=== PATIENT | male | born 1940 | race Caucasian/White ===

== ENCOUNTER 2017-08-20 21:10 | Emergency (ER) | payer MEDICARE, BC ==
--- OUTSIDE RECORDS SUMMARY | 2017-08-20 21:13 | XMS | Clinical Summary ---
:1940 Author Organization [facility] Address [address] [place] [address] Phone Care Team Providers Name Role Phone , Primary Care Provider Unavailable Allergies Not on File Current Medications Not on file Active Problems Not on file Social History Tobacco Use Types Packs/Day Years Used Date Never Assessed Sex Assigned at Date Recorded Not on file Last Filed Vital Signs Not on file Plan of Treatment Not on file Results Not on filefrom Last 3 Months
== END 2017-08-20 22:48 | disposition home or self-care (01) ==
LOC: ERS 21:10
DX: I10 Essential (primary) hypertension (principal); E11.9 Type 2 diabetes mellitus without complications; Z79.82 Long term (current) use of aspirin; Z79.4 Long term (current) use of insulin; Z79.899 Other long term (current) drug therapy
CPT/HCPCS: 93005

== ENCOUNTER 2017-09-20 07:08 | Outpatient (CLI) | payer MEDICARE, BC ==
--- NOTE | 2017-09-20 10:21 | ULT ---
BILATERAL RENAL ULTRASOUND WITH DOPPLER: (HERNÁNDEZ SCALE, COLOR FLOW, AND SPECTRAL DOPPLER) Date: 09/20/17 HISTORY: Chronic renal disease, Diabetes mellitus, hypertension FINDINGS: The right kidney measures 12.7 cm in length and the left kidney measures 12.0 cm in length. No focal mass or hydronephrosis is seen on either side. The urinary bladder is unremarkable. The peak systolic velocity in the right renal artery measures 233 cm/second. The peak systolic veloc ity in the left renal artery measures 128 cm/second. Renal artery:aortic ratio is 3.0 on the right a nd 1.7 on the left. The resistive indices measure 0.79 on the right and 0.78 on the left. IMPRESSION: 1. Findings are suspicious for hemodynamically significant right renal stenosis. 2. No evidence of high grade obstruction. POS: ZAY
--- OUTSIDE RECORDS SUMMARY | 2017-09-20 10:56 | XMS | Clinical Summary ---
:1940 Author Organization [facility] Address [address] [place] [address] Phone Care Team Providers Name Role Phone [...]
== END 2017-09-20 07:09 | disposition home or self-care (01) ==
LOC: ULT 07:08
PROVIDERS: ATTEND Internal Medicine Nephrology
DX: N18.4 Chronic kidney disease, stage 4 (severe) (principal)
CPT/HCPCS: 76700; 76770

== ENCOUNTER 2020-04-08 10:00 | Outpatient (CLI) | payer MEDICARE, BC ==
--- NOTE | 2020-04-08 14:58 | CT ---
CTA OF THE NECK UTILIZING IV CONTRAST: 04/08/20 INDICATION: History of left carotid stenosis. COMPARISON: Prior CTA of the neck with and without contrast from [facility] dated 10/22/15. Com parisons are also made with the carotid duplex ultrasound from [facility] dated 12/16/17. FINDINGS: When compared to the most recent CTA comparison examination there has been an interval endarterectomy of the right carotid bulb. No hemodynamically significant stenosis is seen involving the right commo n carotid artery or right internal carotid artery. Since the comparison examination, there is worsening calcified atherosclerotic plaque involving the d istal common carotid artery with 70% luminal caliber narrowing of the distal left common carotid kenney ry just proximal to the carotid bulb. There is some mild narrowing involving the origin of both the l eft ECA and proximal left ICA but less than 50%. There is at least moderate to severe narrowing involving the origin of the right vertebral artery due to atherosclerotic plaque. There is at least severe luminal caliber narrowing involving the intracra nial course of the right vertebral artery. Left vertebral artery demonstrates mild narrowing at its origin but is otherwise patent. The subclavian arteries appear patent throughout their course. Left common carotid artery origin and brachiocephalic artery origins are patent. There has been interval enlargement of an irregular hypode nse nodule involving the inferior pole of the left thyroid gland now measuring 2.3 x 2.2 cm. There is a subpleural pulmonary nodule measuring 3 mm in superior segment of the right lower lobe on image 13 9 of series 6. There is a subpleural 5 mm nodule in the right upper lobe on image 124 of series 6. Th ere is a small left pleural effusion. There is a calcified lymph node within the right hilar region. There is a mildly enlarged precarinal lymph node measuring 1.1 cm. There is postsurgical change of pr ior CABG. There is scattered degenerative and osteoarthritic change of the visualized cervical spine. No defini te acute osseous abnormality is evident. The visualized aerodigestive tract appears within normal winters its. The parotid and submandibular glands are normal appearing. There is mucous retention cysts seen within the sphenoid sinus. Small mucous retention cysts are seen within the inferior left maxillary sinus. IMPRESSION: 1. 70% luminal canal narrowing involving the distal left common carotid artery with mild narrowi ng involving the origins of both the left external and left internal carotid arteries. 2. Interval carotid endarterectomy involving the right carotid bulb. 3. Moderate to severe narrowing involving the origin of the right vertebral artery with severe n arrowing involving the intracranial course of the right vertebral artery. 4. Mild narrowing involving the origin of the left vertebral artery. 5. Enlarging inferior pole left thyroid nodule. Dedicated thyroid ultrasound is recommended. 6. Right upper and right lower lobe pulmonary nodules. A follow-up CT of the thorax is recommend ed for further characterization. 7. Small left pleural effusion. Code T POS: BH
== END 2020-04-08 10:01 | disposition home or self-care (01) ==
LOC: SCSCT 10:00
PROVIDERS: ATTEND Internal Medicine Cardiovascular Disease
DX: I65.22 Occlusion and stenosis of left carotid artery (principal); I65.03 Occlusion and stenosis of bilateral vertebral arteries; E04.2 Nontoxic multinodular goiter; J90 Pleural effusion, not elsewhere classified; R91.8 Other nonspecific abnormal finding of lung field
CPT/HCPCS: 70498

== ENCOUNTER 2020-05-16 07:30 | Outpatient (CLI) | payer MEDICARE, BC, OTHER ==
[2020-05-16 18:00] LABS: Hemoglobin 9.6 g/dL (14.0-18.0); Mean Corpuscular HGB CONC 33.9 g/dL (32.0-36.0); Mean Corpuscular Hemoglobin 32.4 pg (27.0-31.0); Mean Corpuscular Volume 95.5 fL (78.0-98.0); Mean Platelet Volume 8.8 fL (7.4-10.4); Platelet Count 173 thou/uL (130-400); RBC Distribution Width 12.6 % (11.5-14.5); Red Blood Cell (RBC) Count 2.96 mill/uL (4.70-6.10); White Blood Cell (WBC) Count 8.1 thou/uL (4.8-10.8)
[2020-05-16 18:19] LABS: Anion Gap 13 mmol/L (10-20); BUN (Urea Nitrogen) 32 mg/dL (8.4-25.7); Calc. Creatinine Clearance 0 mL/min (70-130); Calcium 9.2 mg/dL (7.8-10.44); Carbon Dioxide 18 mmol/L (23-31); Chloride 116 mmol/L (98-107); Estimated GFR-MDRD 34; Glucose 76 mg/dL (83-110); Potassium 4.3 mmol/L (3.5-5.1); Sodium 143 mmol/L (136-145)
[2020-05-17 13:48] LABS: SARS-CoV-2 MS2 Positive; SARS-CoV-2 N Gene Negative; SARS-CoV-2 S Gene Negative; SARS-CoV-2 orf1ab Negative
== END 2020-05-16 07:31 | disposition home or self-care (01) ==
LOC: LABBT 07:30
PROVIDERS: ATTEND Thoracic Surgery (Cardiothoracic Vascular Surgery)
DX: Z01.818 Encounter for other preprocedural examination (principal); Z11.59 Encounter for screening for other viral diseases
CPT/HCPCS: 80048; 85027; U0003; 87635

== ENCOUNTER 2020-05-16 15:15 | Inpatient (IN) | payer MEDICARE, BC, OTHER ==
[2020-05-19] MEDS ORDERED: EPINEPHrine 1 MG/ML AMP ONE (06:28)
[2020-05-19] MEDS ORDERED: Bupivacaine PF 0.5% 30 ML VIAL ONE (06:28)
[2020-05-19] MEDS ORDERED: Heparin 5,000 UNITS/ML VIAL ONE (06:28)
[2020-05-19] MEDS ORDERED: Protamine Sulfate 50 MG/5 ML VIAL ONE (06:28)
[2020-05-19] MEDS ORDERED: Fentanyl 100 MCG/2 ML VIAL ONE (06:32)
[2020-05-19] MEDS ORDERED: Midazolam HCl 2 mg/2 ml Vial ONE (06:32)
[2020-05-19] MEDS ORDERED: Phenylephrine 10 MG/ML VIAL ONE (08:00)
[2020-05-19] MEDS ORDERED: AFRIN NASAL MIST 15 ML BOT ONE (08:00)
[2020-05-19] MEDS ORDERED: Atropine Sulfate 1 mg/10 ml Syringe ONE (08:18)
[2020-05-19] MEDS ORDERED: SUGAMMADEX SODIUM 500 MG/5 ML VIAL ONE (08:32)
--- NOTE | 2020-05-19 10:12 | OP ---
DATE OF PROCEDURE: 05/19/2020 PREOPERATIVE DIAGNOSIS: Asymptomatic left carotid stenosis. POSTOPERATIVE DIAGNOSIS: Asymptomatic left carotid stenosis. PROCEDURE PERFORMED: Transcarotid artery revascularization stenting of the left carotid system. SPEECH AND LANGUAGE SPECIALIST: Nba Wu MD ANESTHESIA: General endotracheal - Dr. Mannie Woodard. ESTIMATED BLOOD LOSS: Less than 50. CLAMP TIME: 9 minutes. FLUOROSCOPY TIME: 2.46 minutes. TOTAL CONTRAST: 21 mL. DESCRIPTION OF PROCEDURE: After consent was obtained, the patient was brought to the operating room and placed in supine position on the operating table. Appropriate central line and monitors were placed and general endotracheal anesthesia was induced. Ultrasound interrogation was performed of the carotid and an appropriate transverse incision marked over the common carotid artery above the left clavicle. Neck and right groin were prepped and draped in usual sterile fashion. Percutaneous access to the right common femoral vein was obtained and a femoral sheath placed. A cutdown on the left common carotid artery was performed. The sternocleidomastoid heads were split. The common carotid was controlled with an umbilical tape. The patient was systemically heparinized. A 5-0 Prolene pursestring was placed in the common carotid artery. Using fluoroscopic guidance, the micropuncture needle and wire were passed into the common carotid system. The micropuncture sheath was then passed and the micropuncture wire removed. Hand-injected arteriogram was performed. The carotid bifurcation was marked and we elected to stop short. The J-wire was then placed and stopped at the common carotid artery proximal to the plaque. A micropuncture sheath was exchanged for the Enroute sheath. Sheath was secured with silk suture. Sheath was flushed. The sheath was then connected to the femoral sheath after filling with blood. Antegrade flow was established. After an ACT of greater than 250, the common carotid artery was clamped. Retrograde flow was confirmed. The working wire was then placed and easily traversed the carotid plaque into the internal carotid artery distal to the plaque. We elected to primarily stent. The stent was passed and centered over the plaque. Stent was deployed. The stent was posted with a 5 x 2 balloon taken to 10 mmHg. Followup angiogram in 2 planes showed an excellent result. After 2 minutes, the clamp was removed. Retrograde flow was terminated and the filter catheter removed. The Enroute sheath was then removed and its pursestring suture secured. 50 mg of protamine was given. After protamine was administered, the femoral sheath was removed and manual pressure held for hemostasis. Wound was then irrigated, closed in layers and Dermabond applied to skin. The patient was awakened and neurologically intact at completion. The patient was transferred to the intensive care unit in stable condition. Needle, sponge, and instrument counts were all reported correct. Job ID: [id number]
[2020-05-19] MEDS ORDERED: PROPOFOL 200 MG/20 ML VIAL ONE ×2 (10:58→14:39)
[2020-05-19] MEDS ORDERED: Glycopyrrolate 0.2 MG/ML 5 ML SYRINGE ONE (10:58)
[2020-05-19] MEDS ORDERED: Lidocaine 1% PF 5 ML VIAL ONE (10:58)
[2020-05-19] MEDS ORDERED: PHENYLEPHRINE-NS 100 MCG/ML 10 ML SYRINGE ONE (10:58)
[2020-05-19] MEDS ORDERED: EPHEDRINE 25 MG/5 ML SYRINGE ONE (10:58)
[2020-05-19] MEDS ORDERED: Atropine Sulfate 0.4 mg/1 ml Vial ONE (10:58)
[2020-05-19] MEDS ORDERED: Vecuronium 10 MG VIAL ONE (11:00)
[2020-05-19] MEDS ORDERED: Promethazine HCl 25 MG/ML VIAL IM PRN (11:20)
[2020-05-19] MEDS ORDERED: traMADol HCl 50 MG TAB PO PRN (11:20)
[2020-05-19] MEDS ORDERED: cloNIDine 0.1 MG TAB PO PRN (11:20)
[2020-05-19] MEDS ORDERED: Non-Formulary Item 1 EACH (Insulin Glargine,Hum.Rec.Anlog [Lantus Solostar] 15 UNIT) SQ SCH (11:20)
[2020-05-19] MEDS ORDERED: Diazepam 5 MG TAB PO PRN (11:20)
[2020-05-19] MEDS ORDERED: Acetaminophen 325 MG TAB PO PRN (11:20)
[2020-05-19] MEDS ORDERED: Phenylephrine 10 MG/NS 250 ML 250 ML IVPB PRN (11:20)
[2020-05-19] MEDS ORDERED: HumaLOG 300 UNITS/3 ML VIAL SC PRN (11:20)
[2020-05-19] MEDS ORDERED: hydrALAZINE 20 MG/ML VIAL SLOW IVP PRN (11:20)
[2020-05-19] MEDS ORDERED: Nitroglycerin 50 MG/250 ML BOT 250 ML IVPB PRN (11:20)
[2020-05-19] MEDS ORDERED: Fentanyl 100 MCG/2 ML VIAL SLOW IVP PRN (11:20)
[2020-05-19] MEDS: Sodium Chloride 0.9% 1,000 ML IV SCH ×2 (12:06→21:58)
[2020-05-19] MEDS: CEFAZOLIN 2 GM in Premix Bag 1 BAG IVPB SCH ×2 (14:19→21:14)
[2020-05-19] MEDS ORDERED: Succinylcholine Chloride 20 MG/ML 10 ml SYRINGE FS ONE (14:39)
[2020-05-19] MEDS: Ubidecarenone 50 MG CAP PO SCH (21:13)
[2020-05-19] MEDS: Carvedilol 6.25 MG TAB PO SCH (21:13)
[2020-05-19] MEDS: Atorvastatin Calcium 10 MG TAB PO SCH (21:14)
[2020-05-19] MEDS: Lisinopril 20 MG TAB PO SCH (21:14)
[2020-05-19] MEDS: Insulin Regular 300 UNITS/3 ML VIAL SC PRN (21:18)
[2020-05-19] MEDS ORDERED: Furosemide 40 MG/4 ML VIAL SLOW IVP SCH (23:59)
[2020-05-20] MEDS: Ondansetron PF 4 MG/2 ML Vial IVP PRN (00:02)
[2020-05-20 00:23] LABS: Actual Bicarbonate (HCO3a) 21.7 mEq/L (22-28); Base Excess (BEa) -7.5 mEq/L (-2.0 to +3.0); Hemoglobin (Hb) 12.8 g/dL (14.0-18.0); Potassium - ABG Lab 4.49 mmol/L (3.70-5.30)
[2020-05-20] MEDS ORDERED: Propofol 1,000 MG/100 ML VIAL IV ONE (00:52)
[2020-05-20 00:59] LABS: CO2 Tension 61.7 mmHg (35.0-45.0); pH, Arterial 7.17 (7.35-7.45)
[2020-05-20 01:00] LABS: ALV-art Gradient 595.075 (0-20); O2 Tension (PaO2), arterial 40.8 mmHg (> 70.0); Puncture Site LBR
[2020-05-20] MEDS ORDERED: Ventilator Sedation Protocol 1 EACH FS ONE (01:00)
[2020-05-20] MEDS ORDERED: DISCONTINUE PREVIOUS NARCOTIC PAIN MEDICATIONS AND BENZODIAZEPINES FS SCH (01:05)
[2020-05-20] MEDS ORDERED: fentaNYL Citrate/PF 2,000 MCG in Sodium Chloride 0.9% 60 ML IV SCH (01:05)
[2020-05-20] MEDS ORDERED: Propofol BOLUS 1,000 MG/100 ML VIAL IV PRN (01:05)
[2020-05-20] MEDS ORDERED: Lorazepam 2 MG/ML VIAL SLOW IVP PRN (01:05)
[2020-05-20] MEDS ORDERED: Morphine 2 MG/ML SYRINGE SLOW IVP PRN (01:05)
[2020-05-20] MEDS ORDERED: Fentanyl BOLUS 250 ML IVPB PRN (01:05)
[2020-05-20] MEDS ORDERED: Propofol 1,000 MG/100 ML VIAL IV PRN (01:05)
[2020-05-20 01:15] LABS: CO2 Tension 61.7 mmHg (35.0-45.0); pH, Arterial 7.17 (7.35-7.45)
[2020-05-20 01:16] LABS: Actual Bicarbonate (HCO3a) 21.7 mEq/L (22-28); Base Excess (BEa) -7.5 mEq/L (-2.0 to +3.0); Hemoglobin (Hb) 12.8 g/dL (14.0-18.0); O2 Tension (PaO2), arterial 40.8 mmHg (> 70.0)
[2020-05-20 01:17] LABS: Potassium - ABG Lab 4.49 mmol/L (3.70-5.30)
[2020-05-20 01:18] LABS: ALV-art Gradient 595.075 (0-20); Puncture Site LBR
[2020-05-20 01:19] LABS: Actual Bicarbonate (HCO3a) 19.8 mEq/L (22-28); Base Excess (BEa) -8.9 mEq/L (-2.0 to +3.0); CO2 Tension 54.8 mmHg (35.0-45.0); Hemoglobin (Hb) 12.6 g/dL (14.0-18.0); O2 Tension (PaO2), arterial 97.4 mmHg (> 70.0); pH, Arterial 7.18 (7.35-7.45)
[2020-05-20 01:20] LABS: Calcium, Ionized (arterial) 1.25 mmol/L (1.12-1.30); Carboxyhemoglobin (COHb) 0.3 gm% (0.0-3.0); Potassium - ABG Lab 4.89 mmol/L (3.70-5.30); Puncture Site LRA
[2020-05-20 03:30] LABS: #Lymphocytes 0.6 thou/uL (1.20-3.40); #Neutrophils 11.6 thou/uL (1.40-6.50); %Basophils 0.1 % (0.0-1.0); %Eosinophils 0.3 % (0.0-10.0); %Lymphocytes 4.2 % (21.0-51.0); %Monocytes 7.6 % (0.0-10.0); %Neutrophils 87.8 % (42.0-75.0); Hemoglobin 9.9 g/dL (14.0-18.0); Mean Corpuscular HGB CONC 34.4 g/dL (32.0-36.0); Mean Corpuscular Hemoglobin 33.4 pg (27.0-31.0); Mean Corpuscular Volume 97.1 fL (78.0-98.0); Mean Platelet Volume 8.8 fL (7.4-10.4); Platelet Count 160 thou/uL (130-400); RBC Distribution Width 12.6 % (11.5-14.5); Red Blood Cell (RBC) Count 2.97 mill/uL (4.70-6.10); White Blood Cell (WBC) Count 13.3 thou/uL (4.8-10.8)
[2020-05-20 03:49] LABS: Anion Gap 13 mmol/L (10-20); BUN (Urea Nitrogen) 34 mg/dL (8.4-25.7); Calc. Creatinine Clearance 32 mL/min (70-130); Calcium 8.3 mg/dL (7.8-10.44); Carbon Dioxide 17 mmol/L (23-31); Chloride 113 mmol/L (98-107); Estimated GFR-MDRD 27; Glucose 200 mg/dL (83-110); Potassium 4.8 mmol/L (3.5-5.1); Sodium 138 mmol/L (136-145)
[2020-05-20 04:12] LABS: Actual Bicarbonate (HCO3a) 17.9 mEq/L (22-28); Base Excess (BEa) -6.7 mEq/L (-2.0 to +3.0); CO2 Tension 32.6 mmHg (35.0-45.0); Calcium, Ionized (arterial) 1.19 mmol/L (1.12-1.30); Carboxyhemoglobin (COHb) 0.2 gm% (0.0-3.0); Hemoglobin (Hb) 10.6 g/dL (14.0-18.0); O2 Tension (PaO2), arterial 89.8 mmHg (> 70.0); Potassium - ABG Lab 4.75 mmol/L (3.70-5.30); pH, Arterial 7.36 (7.35-7.45)
[2020-05-20 04:15] LABS: Puncture Site RRA
[2020-05-20] MEDS: Levothyroxine 150 MCG TAB PO SCH (05:22)
[2020-05-20] MEDS: CEFAZOLIN 2 GM in Premix Bag 1 BAG IVPB SCH (05:23)
[2020-05-20 06:31] LABS: Troponin I 0.272 ng/mL (< 0.028)
[2020-05-20 07:21] LABS: Actual Bicarbonate (HCO3a) 17.8 mEq/L (22-28); Base Excess (BEa) -6.6 mEq/L (-2.0 to +3.0); CO2 Tension 31.5 mmHg (35.0-45.0); Calcium, Ionized (arterial) 1.18 mmol/L (1.12-1.30); Carboxyhemoglobin (COHb) 0.2 gm% (0.0-3.0); Hemoglobin (Hb) 10.1 g/dL (14.0-18.0); O2 Tension (PaO2), arterial 89.4 mmHg (> 70.0); Potassium - ABG Lab 4.25 mmol/L (3.70-5.30); pH, Arterial 7.37 (7.35-7.45)
--- NOTE | 2020-05-20 07:52 | RAD ---
EXAM: Single view of the chest HISTORY: CODE BLUE. Line placement after intubation COMPARISON: 05/20/2020 FINDINGS: Single view of the chest shows an enlarged but stable cardiomediastinal silhouette. The pa tient is status post sternotomy. The endotracheal tube and NG tube are unchanged in position. Multifocal airspace opacities are seen in the lungs. The left sided infiltrate may have slightly impr dameon compared to the prior exam. There may be a small left pleural effusion. The bones are unremarkable. IMPRESSION: Multifocal infiltrates and possible small left pleural effusion
[2020-05-20] MEDS ORDERED: Sodium Bicarb 50 MEQ/50 ML Abboject 8.4% SYRINGE ONE (08:15)
[2020-05-20] MEDS: Insulin Glargine 15 UNITS in Pre-Filled Syringe 1 EACH SC SCH (08:47)
[2020-05-20] MEDS: Clopidogrel Bisulfate 75 MG TAB PO SCH (08:47)
[2020-05-20] MEDS: Vit A,C & E/Lutein/Minerals Tablet PO SCH (08:47)
[2020-05-20] MEDS: Ubidecarenone 50 MG CAP PO SCH ×2 (08:48→21:53)
[2020-05-20] MEDS: Aspirin 81 mg Enteric Coated Tablet PO SCH (08:48)
[2020-05-20] MEDS: Lisinopril 20 MG TAB PO SCH (08:48)
[2020-05-20] MEDS: Calcium Carbonate 600 MG + Vit D TAB PO SCH (08:48)
[2020-05-20] MEDS: Finasteride 5 MG TAB PO SCH (08:48)
[2020-05-20] MEDS: Sulfameth/Trimethoprim DS 800-160mg TAB PO SCH (08:48)
[2020-05-20] MEDS: Tamsulosin HCl 0.4 MG CAP PO SCH (08:49)
[2020-05-20] MEDS: NIFEdipine XL 90 MG TAB PO SCH (08:49)
[2020-05-20] MEDS: Ascorbic Acid 500 mg Chewable Tablet PO SCH (08:49)
[2020-05-20] MEDS: Carvedilol 6.25 MG TAB PO SCH ×2 (08:49→21:40)
[2020-05-20] MEDS ORDERED: hydrALAZINE 25 MG TAB PO SCH (09:00)
--- NOTE | 2020-05-20 09:04 | RAD ---
PORTABLE CHEST: DATE: 05/20/2020. PROVIDED CLINICAL HISTORY: Code Blue. FINDINGS: Comparison 10/21/2015. Cardiac and mediastinal silhouette is within normal limits. Endotracheal tub e is noted, the tip of which projects in the region of the thoracic inlet. There is bilateral consol idation, predominating in the perihilar regions. Left pleural opacities possibly on the basis of flu id. The supine nature of the study is not sensitive for detection of pneumoperitoneum, without evide nce for such. IMPRESSION: Bilateral lung consolidation, edema versus pneumonia. Left pleural fluid. Followup recommended. POS: SHIMA
[2020-05-20] MEDS ORDERED: Sodium Bicarb 50 MEQ/50 ML Abboject 8.4% SYRINGE IVP SCH (09:15)
[2020-05-20 09:37] LABS: ALV-art Gradient 299.025 (0-20); Puncture Site LRA
--- NOTE | 2020-05-20 11:15 | CON ---
DATE OF CONSULTATION: HISTORY OF PRESENT ILLNESS: Pedro Lizama is a 79-year-old gentleman, who is intubated at the vent, sedated. Events as noted. His son is at the bedside. He is from [place] who also gave additionally history and information, who states that he sees several different doctors over a year. He was brought to the hospital for routine carotid surgery. As outlined by the note, postop, he is doing well. He suddenly developed acute respiratory distress followed by flash pulmonary edema. He was intubated last night. He is presently on the vent. Son states his dad does not smoke or drink. He sees several different local doctors in a year. PAST MEDICAL HISTORY: Pertinent for aortic stenosis, hypertension, diabetes, hypothyroidism, anxiety, peripheral vascular disease, and neuropathy. He had some MRSA infection in the back some years ago. PAST SURGICAL HISTORY: Previous surgeries otherwise included previous right carotid surgery, lumbar laminectomy, thyroid surgery, bypass, and anal surgery. 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 HOME MEDICATIONS: Include: 1. Pravastatin 40. 2. Insulin. 3. Aspirin. 4. Vitamin. 5. Diazepam 5. 6. Proscar 5. 7. Ascorbic acid. 8. Synthroid 150. 9. Hydralazine 50. 10. Plavix one. 11. Catapres 0.1. 12. Procardia 90. 13. Zestril 20. 14. Flomax 0.4. ALLERGIES: DEMEROL. REVIEW OF SYSTEMS: Unobtainable. PHYSICAL EXAMINATION: VITAL SIGNS: Pulse 98, blood pressure 140/80, sats 100%, and respirations 15. CHEST: Bilateral crackles. CARDIAC: Normal S1, S2. No gallops. ABDOMEN: No masses. LABORATORY DATA: White count 13,000, H and H are 9 and 28, and platelet count 160. His PO2 last night prior to intubation was 40, pCO2 of . Creatinine is 2.3, glucose 220. ASSESSMENT AND PLAN: 1. Respiratory failure. X-ray showed bilateral pulmonary edema. 2. Nonsmoker. 3. Diabetes. 4. Peripheral neuropathy. 5. Renal failure. 6. Aortic stenosis. 7. Hypothyroidism. 8. Depression. 9. Sleep apnea. He is being diuresed. We will get repeat blood gas, consider weaning and extubation in the next 24 to 48 hours. CRITICAL CARE TIME: 45 minutes. Job ID: [id number]
[2020-05-20] MEDS ORDERED: Furosemide 40 MG/4 ML VIAL SLOW IVP SCH (12:30)
[2020-05-20] MEDS: Non-Formulary Item 1 EACH (Glucosamine/D3/Boswellia Serra [Osteo Bi-Flex One Per Day] 1 T PO SCH ×2 (12:49→13:46)
--- NOTE | 2020-05-20 13:01 | CON ---
DATE OF CONSULTATION: 05/20/2020 PRIMARY VEHICLE CARE SPECIALIST: Ashwin Aponte M.D. REASON FOR CONSULTATION: Heart failure. HISTORY OF PRESENT ILLNESS: Mr. Lizama is a pleasant 79-year-old white gentleman, who comes to the hospital for a planned carotid surgery. He had severe stenosis and Dr. Malik performed a transcarotid artery revascularization with stenting to the left carotid system. This was on . He did well postoperatively. He was extubated. He was wide awake, talking, and then suddenly became unresponsive and in respiratory distress, had to be re-intubated. Eventually this morning, he was extubated again and has since been placed on BiPAP again because of respiratory issues. He is mostly sleeping, but is arousable. He denies chest pain, tightness, or pressure, but he has a hard time breathing. He has a diagnosis of severe aortic stenosis and is awaiting TAVR. PAST MEDICAL HISTORY: 1. History of aortic stenosis. 2. Hypertension. 3. Type 2 diabetes. 4. Hypothyroidism. 5. Anxiety and depression. 6. Peripheral vascular disease. 7. Neuropathy. 8. Severe aortic stenosis awaiting TAVR. PAST SURGICAL HISTORY: 1. Right carotid surgery. 2. Lumbar laminectomy. 3. Thyroid surgery. 4. s/p CABG. 5. Some type of anal surgery. OUTPATIENT MEDICATIONS: 1. Pravastatin. 2. Insulin. 3. Aspirin. 4. Vitamin. 5. Diazepam. 6. Proscar. 7. Ascorbic acid. 8. Synthroid 150 mcg a day. 9. Hydralazine 50 mg b.i.d. 10. Plavix 75 mg a day. 11. Catapres. 12. Procardia 90 mg a day. 13. Zestril 10 mg a day. 14. Flomax. ALLERGIES: DEMEROL. REVIEW OF SYSTEMS: Unobtainable as he remains somewhat difficult to arouse, but arousable. SOCIAL HISTORY: No alcohol, tobacco, or drugs. FAMILY HISTORY: Noncontributory. PHYSICAL EXAMINATION: VITAL SIGNS: Temperature 97.8, pulse 75, respiratory rate 32, saturating 97% on 50% FiO2 on the BiPAP. GENERAL: Sleeping, but easily arousable. HEENT: Normocephalic and atraumatic. NECK: Has a wound on the left side with some ecchymosis. LUNGS: Mild crackles at bases. CARDIOVASCULAR: S1 and S2. No S3 or S4. There is a grade 2/6 systolic murmur at the right upper sternal border. ABDOMEN: Soft. Positive bowel sounds. EXTREMITIES: No edema. SKIN: Warm and dry. LABORATORY DATA: Laboratory work was reviewed. White count of 13, hemoglobin 9.9, hematocrit 28.8, platelet count of 160. ABG was reviewed. Chemistries were reviewed. Creatinine went up a little bit to 2.33 after Lasix given yesterday. Troponin was 0.27. Chest x-ray was reviewed from this morning, multifocal infiltrates with a small left pleural effusion. This could be pneumonia aspirate versus just pulmonary edema. ASSESSMENT: 1. Acute on chronic systolic versus diastolic heart failure. 2. Status post left carotid stenting. 3. Acute hypoxic respiratory insufficiency, requiring mechanical intubation. 4. Severe aortic stenosis. PLAN: 1. We will give one dose of IV Lasix, hopefully, his creatinine does not increase too much. 2. We will trend troponins. 3. Get an echocardiogram. 4. Further recommendations per results of testing. 45 minutes of critical care. Job ID: [id number] ANTHONY
[2020-05-20] MEDS: hydrALAZINE 25 MG TAB PO SCH ×2 (14:41→21:41)
--- NOTE | 2020-05-20 17:18 | CON ---
DATE OF CODE BLUE: 05/19/[address] Judson Malik. Natalie Foster called at approximately 0015 on 2019. Family Medicine team arrives to Code, staff reporting patient in respiratory distress, has been dropping oxygen saturation over the past hour. Report called to CV surgeon on-call. On initial assessment, the patient had GCS of less than 8, respiratory failure. Anesthesia paged and CV Surgery notified of the patient's declining status. Possible need for intubation. Trauma Surgery, Bladomero Harrison arrives and prepares to intubate. basic labs/abg ordered. Patient maintaining adequate blood pressure and perfusion. Lungs with decreased sounds and crackles throughout. Heart sounds faint, pulse strong and regular, extremities cool and dry. Patient likely in flash pulmonary edema, rapid sequence intubation recommended. Completed successfully on first attempt by Baldomero Harrison. Chest x-ray revealed proper ET and NG tube placement. The patient was placed on ventilator for respiratory support. Oxygenation improved to upper 90s. Dr. Judson Malik arrived and updated on situation. Job ID: [id number] Attending note: I was present for the above mentioned code event. Trauma present at initiation of code. Intubated and managed patient. Patient appear to have an episode of flash pulmonary edema. CV surg present shortly after patient was intubated. ABrrustyMD MTDJanel
--- NOTE | 2020-05-20 17:40 | CON ---
DATE OF CONSULTATION: HISTORY OF PRESENT ILLNESS: Mr. Lizama is a 79-year-old white male with history of chronic renal failure secondary to a presumed diabetic nephropathy. He was admitted due to a left carotid artery stenosis and he underwent transcarotid artery revascularization/stenting of the left carotid system. We are now being consulted for his acute kidney injury on top of his chronic renal failure. His last creatinine was noted at 1.8 and it is now more than 2 mg%. During the extubation, he was also noted to have decompensated, became hypoxemic, and he was placed on a noninvasive BiPAP. Chest x-ray showed diffuse infiltrates, ? of pulmonary edema remains. REVIEW OF SYSTEMS: Positive for mild shortness of breath. No chest pain. Denies any syncopal episode. No productive cough. No fever or chills. No headache. No dysuria. No urinary frequency. MEDICATIONS: Currently, the patient was on: 1. Lisinopril 20 mg b.i.d. 2. Vitamin C 500 mg daily. 3. Ecotrin 81 mg tablet once a day. 4. Lipitor 10 mg at bedtime. 5. Catapres 0.1 mg tab q.6 hours p.r.n. for BP systolic 180 or greater. 6. Carvedilol 6.25 mg p.o. b.i.d. 7. Plavix 75 mg daily. 8. Coenzyme Q10 of 100 mg p.o. b.i.d. 9. Proscar 5 mg at bedtime. 10. Hydralazine 50 mg p.o. daily. 11. Insulin glargine 15 units subcu daily. 12. Humalog sliding scale. 13. Levothyroxine 150 mcg daily. 14. Nifedipine 90 mg daily. 15. Flomax 0.4 mg daily. 16. Bactrim DS 1 tablet daily. PAST MEDICAL HISTORY: Chronic renal failure, presumed diabetic nephropathy, history of ? of renal artery stenosis right, history of longstanding hypertension, type 2 diabetes mellitus, hyperlipidemia, peripheral vascular disease, coronary artery disease, status post MRSA infection of the backbones, status post paraplegia secondary to his chronic low back surgery. 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 SOCIAL HISTORY: The patient is . He lives in [place]. Two children. 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 No smoking. Alcohol, rare. Status post blood transfusion. FAMILY HISTORY: No family history of ESRD. ALLERGIES: NONE. TRAUMA: Status post bilateral forearm fracture. IMMUNIZATIONS: Not up-to-date. HOSPITALIZATIONS: Please see past medical history. PHYSICAL EXAMINATION: VITAL SIGNS: Blood pressure is 124/74, heart rate 75, respiratory rate 16, O2 saturation 97%. GENERAL: The patient is awake, on BiPAP, not in distress. SKIN: Adequate turgor. HEENT: He has pinkish conjunctivae. Anicteric sclerae. No neck mass. No carotid bruits. No JVD. CHEST: No deformities. LUNGS: Clear breath sounds. No wheezing. No crackles. HEART: Normal sinus rhythm. He does have grade 2/6 systolic murmur. No gallops. No rubs. ABDOMEN: Globular, soft, nontender. No masses. EXTREMITIES: No edema. No deformities. LABORATORY DATA: Laboratories of May 20, 2020: White count 13.3, hemoglobin 9.9. Sodium 138, potassium 4.8, chloride 113, carbon dioxide 17, BUN 34, creatinine 2.33, glucose 200, calcium is 8.3, GFR 27 mL/minute. Troponin I is 0.272. May 16, 2020: Creatinine 1.94. April 13, 2020: Creatinine 2.2. April 06, 2020: Creatinine 1.76. ASSESSMENT AND PLAN: 1. Left carotid artery stenosis - the patient is status post left carotid artery stent placement, stable and doing well. 2. Pulmonary decompensation - on extubation, the patient became hypoxemic. He was placed on a CPAP. He is doing well and is oxygenating adequately at the present time. Chest x-ray showed diffuse infiltrates, which could suggest some degree of pulmonary edema. 3. Acute kidney injury on top of his chronic renal failure. I suspect he has superimposed hemodynamically-mediated renal dysfunction. Please note, he has been placed on lisinopril at 20 mg b.i.d. Our plan is to discontinue this temporarily. He may have underlying right renal artery stenosis that is why he did not tolerate the lisinopril. 4. Right renal artery stenosis: Management is medical. 5. Chronic renal failure - he most likely has underlying diabetic nephropathy since his previous urinalysis showed some protein. Overall agree with current management. There is no indication for any emergent hemodialysis with this patient. The patient may need to be given Lasix. Job ID: [id number] MTDD
[2020-05-20] MEDS: Amiodarone HCl 450 MG in Dextrose 5% in Water 250 ML IVPB SCH (18:13)
[2020-05-20] MEDS: Atorvastatin Calcium 10 MG TAB PO SCH (21:41)
[2020-05-20] MEDS: Insulin Regular 300 UNITS/3 ML VIAL SC PRN (22:01)
[2020-05-21] MEDS: Amiodarone HCl 450 MG in Dextrose 5% in Water 250 ML IVPB SCH ×2 (02:26→16:50)
[2020-05-21 03:41] LABS: #Eosinphils 0.1 thou/uL (0.0-0.7); #Lymphocytes 0.8 thou/uL (1.20-3.40); #Monocytes 1.5 thou/uL (0.11-0.59); #Neutrophils 10.1 thou/uL (1.40-6.50); %Basophils 0.1 % (0.0-1.0); %Eosinophils 0.5 % (0.0-10.0); %Lymphocytes 6.1 % (21.0-51.0); %Monocytes 11.7 % (0.0-10.0); %Neutrophils 81.7 % (42.0-75.0); Hemoglobin 10.1 g/dL (14.0-18.0); Mean Corpuscular HGB CONC 33.9 g/dL (32.0-36.0); Mean Corpuscular Hemoglobin 32.7 pg (27.0-31.0); Mean Corpuscular Volume 96.6 fL (78.0-98.0); Mean Platelet Volume 9.2 fL (7.4-10.4); Platelet Count 151 thou/uL (130-400); RBC Distribution Width 12.5 % (11.5-14.5); Red Blood Cell (RBC) Count 3.08 mill/uL (4.70-6.10); White Blood Cell (WBC) Count 12.4 thou/uL (4.8-10.8)
[2020-05-21 04:51] LABS: Anion Gap 13 mmol/L (10-20); BUN (Urea Nitrogen) 35 mg/dL (8.4-25.7); Calc. Creatinine Clearance 30 mL/min (70-130); Calcium 8.5 mg/dL (7.8-10.44); Carbon Dioxide 21 mmol/L (23-31); Chloride 110 mmol/L (98-107); Estimated GFR-MDRD 26; Glucose 182 mg/dL (83-110); Potassium 3.8 mmol/L (3.5-5.1); Sodium 140 mmol/L (136-145)
[2020-05-21] MEDS: Levothyroxine 150 MCG TAB PO SCH (06:33)
[2020-05-21] MEDS: Insulin Regular 300 UNITS/3 ML VIAL SC PRN ×4 (06:33→21:38)
[2020-05-21] MEDS: Insulin Glargine 15 UNITS in Pre-Filled Syringe 1 EACH SC SCH (08:26)
[2020-05-21] MEDS: Carvedilol 6.25 MG TAB PO SCH ×2 (08:27→21:35)
[2020-05-21] MEDS: NIFEdipine XL 90 MG TAB PO SCH (08:27)
[2020-05-21] MEDS: Ubidecarenone 50 MG CAP PO SCH ×2 (08:27→21:35)
[2020-05-21] MEDS: Finasteride 5 MG TAB PO SCH (08:27)
[2020-05-21] MEDS: Calcium Carbonate 600 MG + Vit D TAB PO SCH (08:27)
[2020-05-21] MEDS: Clopidogrel Bisulfate 75 MG TAB PO SCH (08:28)
[2020-05-21] MEDS: Tamsulosin HCl 0.4 MG CAP PO SCH (08:28)
[2020-05-21] MEDS: Vit A,C & E/Lutein/Minerals Tablet PO SCH (08:28)
[2020-05-21] MEDS: Sulfameth/Trimethoprim DS 800-160mg TAB PO SCH (08:28)
[2020-05-21] MEDS: hydrALAZINE 25 MG TAB PO SCH ×3 (08:28→21:41)
[2020-05-21] MEDS: Aspirin 81 mg Enteric Coated Tablet PO SCH (08:28)
--- NOTE | 2020-05-21 08:28 | RAD ---
PORTABLE CHEST: HISTORY: CCU followup. COMPARISON: 05/20/2020. FINDINGS: There are bilateral infiltrates. The right lower lung infiltrates appear slightly improved today. T he ET tube has been removed. IMPRESSION: Bilateral infiltrates. Evidence of some improvement I the right lower lung infiltrates. POS: AGW
[2020-05-21] MEDS: Ascorbic Acid 500 mg Chewable Tablet PO SCH (08:29)
[2020-05-21 08:59] LABS: Bacteria/HPF 1+ HPF (None Seen); Bilirubin Negative (Negative); Blood, Urine 1+ (Negative); Clarity Clear (Clear); Glucose, Urine (Dipstick) Normal (Negative); Leukocyte Negative Leu/uL (Negative); Nitrite Negative (Negative); Protein, Urine (Dipstick) 100 mg/dL (Neg-Trace); RBC/HPF 0-3 HPF (0-3); Squamous Epithelial None Seen HPF (0-3); Urobilinogen Normal mg/dL (Less than 2)
--- NOTE | 2020-05-21 10:25 | PRG ---
DATE OF SERVICE: 05/21/2020 SERVICE: Renal Medicine. SUBJECTIVE: Mr. Lizama is a 79-year-old white male with known history of chronic renal failure from presumed diabetic nephropathy, hypertension, recently status post left carotid artery stent placement. During extubation, the patient went to acute pulmonary edema. He was initially placed on BiPAP, which improved his pulmonary status. He was also given diuretics and significantly diuresed. We are following up this patient for his acute kidney injury on top of his chronic renal failure. No acute events noted. The patient denies any chest pain or shortness of breath. OBJECTIVE: VITAL SIGNS: Blood pressure 122/70, heart rate 84, respiratory rate 26, and O2 saturation 95%. GENERAL: The patient is awake, alert, sitting comfortable, not in overt distress. SKIN: Adequate turgor. HEENT: Pinkish conjunctivae. Anicteric sclerae. NECK: No neck mass. No carotid bruits. No JVD. CHEST: No deformities. LUNGS: Decreased breath sounds. HEART: Normal sinus rhythm. No murmur. No gallops. No rubs. ABDOMEN: Globular, soft, nontender. No masses. EXTREMITIES: Trace edema. LABORATORY DATA: Cardiac echo of May 20, 2020, showed an EF of 55% to 60%-grade 1/3 diastolic dysfunction. He was also found to have severe aortic valve stenosis. Laboratories of May 21, 2020; white count 12.4 and hemoglobin 10.1. Sodium 140, potassium 3.8, chloride 110, carbon dioxide 21, BUN 35, creatinine 2.41, glucose 182, and calcium 8.5. IMAGING DATA: Chest x-ray of May 21, 2020, showed evidence of improving right lower lung infiltrates/bilateral infiltrates. ASSESSMENT AND PLAN: 1. Pulmonary edema-clinically improving. Status post diuresis. The patient diuresed about 3 L yesterday. We will continue to observe. Hold diuretics for today. 2. Acute kidney injury on top of his chronic renal failure-he most likely had hemodynamically mediated renal dysfunction. We held off lisinopril temporarily. Once the renal function has stabilized, consider restarting MISSAEL inhibitors at lower dose. 3. Aortic stenosis-the patient has been told in the past that he may need an aortic valve replacement. 4. Peripheral vascular disease, status post left carotid artery stent placement. 5. Chronic renal failure, most likely from diabetic nephropathy and/or hypertensive nephropathy. In the past, he has been found to have a ? of possible renal artery stenosis based on a previous renal ultrasound and Doppler studies. He eventually may need further workup for this if blood pressure remains less than ideal. Agree with current management. Job ID: [id number]
--- NOTE | 2020-05-21 11:12 | PDOC.CPN ---
- Subjective Date: 05/21/20 Time: 11:10 Interval history: He is doing much better. No chest pain. Breathing a lot better not back to normal. - Review of Systems General: denies: fever/chills, weight/appetite/sleep changes, night sweats, fatigue Respiratory: denies: cough, congestion, shortness of breath, exercise intolerance Cardiovascular: denies: chest pain, palpitation, edema, paroxysmal nocturnal dyspnea, orthopnea Gastrointestinal: denies: nausea, vomiting, diarrhea, constipation, abd pain, GI bleeding Musculoskeletal: denies: pain, tenderness, stiffness, swelling, arthritis/ arthralgias Neurological: denies: numbness, syncope, seizure, weakness - Objective Allergies/Adverse Reactions: Allergies Allergy/AdvReac Type Severity Reaction Status Date / Time meperidine HCl [From Demerol] Allergy Verified 05/13/20 10:39 Visit Medications: Current Medications Acetaminophen (Tylenol) 650 mg PO Q4H PRN PRN Reason: Fever > 101 or headache Albuterol/Ipratropium (Duoneb) 3 ml NEB [id number] PRN PRN Reason: SHORTNESS OF BREATH Albuterol/Ipratropium (Duoneb) 3 ml NEB [id number] [facility] Last Admin: 05/21/20 06:47 Dose: 3 ml Ascorbic Acid (Vitamin C) 500 mg PO DAILY [facility] Last Admin: 05/21/20 08:29 Dose: 500 mg Aspirin (Ecotrin) 81 mg PO DAILY [facility] Last Admin: 05/21/20 08:28 Dose: 81 mg Atorvastatin Calcium (Lipitor) 10 mg PO HS [facility] Last Admin: 05/20/20 21:41 Dose: 10 mg Calcium/Vitamin D (Caltrate 600 + Vit D) 1 tab PO DAILY [facility] Last Admin: 05/21/20 08:27 Dose: 1 tab Carvedilol (Coreg) 6.25 mg PO BID [facility] Last Admin: 05/21/20 08:27 Dose: 6.25 mg Clonidine (Catapres) 0.1 mg PO PRN PRN PRN Reason: HTN SBP>180 Clopidogrel Bisulfate (Plavix) 75 mg PO DAILY [facility] Last Admin: 05/21/20 08:28 Dose: 75 mg Coenzyme Q10 (Coenzyme Q10) 100 mg PO BID [facility] Last Admin: 05/21/20 08:27 Dose: 100 mg Finasteride (Proscar) 5 mg PO DAILY [facility] Last Admin: 05/21/20 08:27 Dose: 5 mg Hydralazine HCl (Apresoline) 10 mg SLOW IVP Q6H PRN PRN Reason: To Keep SBP < 150 mmHG Hydralazine HCl (Apresoline) 50 mg PO TID [facility] Last Admin: 05/21/20 08:28 Dose: 50 mg Nitroglycerin/Dextrose (Nitroglycerin 50 Mg/250 Ml Bot) 250 mls @ 0 mls/hr IVPB PRN PRN; Protocol PRN Reason: To Keep SBP < 150 mmHG Phenylephrine HCl (Matty-Synephrine) 250 mls @ 0 mls/hr IVPB PRN PRN; Protocol PRN Reason: To Keep SBP > 100 mmHG Insulin Glargine 15 units/ (Miscellaneous Medication) 0.15 mls @ 0 mls/hr SC DAILY [facility] Last Admin: 05/21/20 08:26 Dose: 0.15 mls Fentanyl Citrate 2,000 mcg/ (Sodium Chloride) 100 mls @ 0 mls/hr IV INF [facility]; Protocol Stop: 06/19/20 01:05 Fentanyl Citrate (Fentanyl Bolus) 250 mls @ 0 mls/hr IVPB PRN PRN PRN Reason: Breakthrough pain/agitation Stop: 06/19/20 01:05 Amiodarone HCl 450 mg/Miscellaneous Medication 1 each/ Dextrose/Water 259 mls @ 0 mls/hr IVPB INF [facility]; Protocol Last Admin: 05/21/20 02:26 Dose: 259 mls Insulin Human Lispro (Humalog) 15 units SC ASDIR PRN PRN Reason: Diabetes Insulin Human Regular (Humulin R) 0 units SC .MILD SLIDING SCALE PRN PRN Reason: Mild Correctional Scale Last Admin: 05/21/20 06:33 Dose: 2 unit Levothyroxine Sodium (Synthroid) 150 mcg PO 0600 [facility] Last Admin: 05/21/20 06:33 Dose: 150 mcg Lorazepam (Ativan) 2 mg SLOW IVP Q1H PRN PRN Reason: Breakthrough agitation Stop: 06/19/20 01:05 Last Admin: 05/20/20 01:19 Dose: 2 mg Morphine Sulfate (Morphine) 2 mg SLOW IVP Q1H PRN PRN Reason: BREAKTHROUGH PAIN/Agitation Stop: 06/19/20 01:05 Multivitamins/Minerals (Ocuvite With Lutein) 1 tab PO DAILY [facility] Last Admin: 05/21/20 08:28 Dose: 1 tab Nifedipine (Procardia Xl) 90 mg PO DAILY [facility] Last Admin: 05/21/20 08:27 Dose: 90 mg Ondansetron HCl (Zofran) 4 mg IVP Q6H PRN PRN Reason: Nausea/Vomiting Last Admin: 05/20/20 00:02 Dose: 4 mg Promethazine HCl (Phenergan) 6.25 mg IM Q4H PRN PRN Reason: Nausea/Vomiting Propofol (Diprivan) 1,000 mg IV INF PRN; Protocol PRN Reason: TO ACHIEVE GOAL RASS Stop: 06/19/20 01:05 Last Admin: 05/20/20 08:18 Dose: 1,000 mg Propofol (Diprivan Bolus) 20 mg IV Q5MIN PRN PRN Reason: BREAKTHROUGH AGITATION Stop: 06/19/20 01:05 Tamsulosin HCl (Flomax) 0.4 mg PO DAILY [facility] Last Admin: 05/21/20 08:28 Dose: 0.4 mg Trimethoprim/Sulfamethoxazole (Bactrim Ds) 1 tab PO DAILY [facility] Last Admin: 05/21/20 08:28 Dose: 1 tab Vital Signs & Weight: Vital Signs Temp Pulse Resp BP Pulse Ox 05/21/20 11:00 97.5 F L 05/21/20 10:03 97 05/21/20 08:28 84 05/21/20 08:27 84 122/70 05/21/20 07:39 96 05/21/20 07:00 97.6 F 05/21/20 06:49 84 05/21/20 06:47 81 26 H 96 05/21/20 04:00 97.9 F 05/21/20 02:47 79 05/21/20 02:21 90 L 05/21/20 01:19 84 05/21/20 01:17 85 28 H 91 L 05/21/20 00:00 98.4 F Weight 190 lb 7.67 oz - Physical Exam General: alert & oriented x3 HEENT: mucus membranes moist Neck: supple neck Cardiac: regular rate and rhythm, audible murmur Lungs: bibasilar rales Neuro: grossly intact Abdomen: active bowel sounds Skin: clear Musculoskeletal: no pain - Labs Result Diagrams: 05/21/20 03:16 05/21/20 03:16 Troponin/CKMB Troponin I 0.272 ng/mL (< 0.028) H 05/20/20 03:13 - Telemetry Sinus rhythms and dysrhythmias: sinus rhythm Supraventricular conduction: atrial fibrillation - Assessment/Plan Assessment/Plan: 1. Severe aortic stenosis 2. Flash pulmonary edema 3. Respiratory insufficiency 4. S/P left carotid open stenting 5. Paroxysmal afib PLAN: - Will give additional lasix - Continue amiodarone drip for now. - Will discuss with Dr. Malik about timing of full anticoagulation for stroke prophylaxis. - Will need TAVR in the near future as it is most likely reason for decompensation.
[2020-05-21] MEDS: Furosemide 40 MG/4 ML VIAL SLOW IVP SCH (13:10)
--- NOTE | 2020-05-21 13:57 | PRG ---
DATE OF SERVICE: 05/21/2020 SUBJECTIVE: Mr. Lizama is doing a little bit better today. He was able to ambulate in the halls for a total of about 60 feet. He was quite dyspneic upon returning to his room and had saturations into the mid 80s, which would not improve with supplemental oxygen alone. He was then placed back on BiPAP. He denies chest pain. He complains of chronic pain in his back related to remote surgery, now exacerbated by being in the bed. He has not had any palpitations and denies any nausea or vomiting. Hemodynamically, he is stable. He has received a dose of Lasix and is initiating a very brisk diuresis. PHYSICAL EXAMINATION: VITAL SIGNS: Include net output of -2400 yesterday. His blood pressure is 130/70 with heart rate is 68. Saturation is in the low 90s, on BiPAP. GENERAL: He is awake and responds appropriately. NECK: He has no JVD. LUNGS: Show rhonchi bilaterally without wheezing or rales. HEART: Regular rate and rhythm. He has a blowing systolic murmur at the right upper sternal border consistent with his aortic stenosis. ABDOMEN: Soft. There is no organomegaly. EXTREMITIES: He has trace ankle edema. LABORATORY DATA: White count 12,400, hemoglobin is 10.1, platelet count 151,000. Blood gas earlier included pH of 7.17, CO2 62, PO2 of 41, bicarbonate 22. This is consistent with acute respiratory acidosis. Chemistries include sodium 140, potassium 3.8, chloride 110, CO2 is 21, BUN 35, and creatinine 2.4. IMPRESSION: 1. Severe dyspnea and heart failure, most consistent with his aortic stenosis. He has a calculated aortic valve area of 0.69 cm2 and has a gradient greater than 30 across the valve. Ejection fraction is preserved and he has grade 1 diastolic dysfunction. 2. Renal azotemia. PLAN: We will continue supportive oxygen. Gentle diuresis is planned, although, he will be extremely volume sensitive. He has preserved LV function to this point and would appear to be an excellent candidate for aortic valve repair/TAVR. We will continue other therapies as underway. Job ID: [id number]
[2020-05-21] MEDS: Atorvastatin Calcium 10 MG TAB PO SCH (21:35)
[2020-05-22 03:50] LABS: #Eosinphils 0.1 thou/uL (0.0-0.7); #Lymphocytes 0.8 thou/uL (1.20-3.40); #Monocytes 1.2 thou/uL (0.11-0.59); #Neutrophils 9.5 thou/uL (1.40-6.50); %Basophils 0.3 % (0.0-1.0); %Eosinophils 0.6 % (0.0-10.0); %Lymphocytes 7.1 % (21.0-51.0); %Monocytes 10.1 % (0.0-10.0); %Neutrophils 81.9 % (42.0-75.0); Hemoglobin 8.9 g/dL (14.0-18.0); Mean Corpuscular HGB CONC 33.3 g/dL (32.0-36.0); Mean Corpuscular Hemoglobin 32.5 pg (27.0-31.0); Mean Corpuscular Volume 97.6 fL (78.0-98.0); Mean Platelet Volume 9.3 fL (7.4-10.4); Platelet Count 137 thou/uL (130-400); RBC Distribution Width 12.5 % (11.5-14.5); Red Blood Cell (RBC) Count 2.74 mill/uL (4.70-6.10); White Blood Cell (WBC) Count 11.6 thou/uL (4.8-10.8)
[2020-05-22 04:16] LABS: Anion Gap 13 mmol/L (10-20); BUN (Urea Nitrogen) 42 mg/dL (8.4-25.7); Calc. Creatinine Clearance 28 mL/min (70-130); Calcium 8.7 mg/dL (7.8-10.44); Carbon Dioxide 19 mmol/L (23-31); Chloride 110 mmol/L (98-107); Estimated GFR-MDRD 23; Glucose 198 mg/dL (83-110); Potassium 3.6 mmol/L (3.5-5.1); Sodium 138 mmol/L (136-145)
[2020-05-22] MEDS: Furosemide 40 MG/4 ML VIAL SLOW IVP SCH ×2 (06:41→14:05)
[2020-05-22] MEDS: Levothyroxine 150 MCG TAB PO SCH (06:41)
[2020-05-22] MEDS: Insulin Regular 300 UNITS/3 ML VIAL SC PRN ×4 (06:42→20:22)
[2020-05-22] MEDS: Amiodarone HCl 450 MG in Dextrose 5% in Water 250 ML IVPB SCH (07:32)
[2020-05-22] MEDS: Insulin Glargine 15 UNITS in Pre-Filled Syringe 1 EACH SC SCH (08:36)
--- NOTE | 2020-05-22 08:36 | RAD ---
AP CHEST: HISTORY: Ventilator and CCU followup. COMPARISON: 05/21/20 FINDINGS: Bilateral infiltrates are less apparent today and today's chest shows evidence of improvement when co mpared to yesterday. Left basilar opacification is seen today, indicating left basilar atelectasis or infiltrate with effusion. IMPRESSION: The hazy mid and upper lung infiltrates appear improved. There is opacification of the left base toda y. POS: AGW
[2020-05-22] MEDS: Tamsulosin HCl 0.4 MG CAP PO SCH (08:37)
[2020-05-22] MEDS: Sulfameth/Trimethoprim DS 800-160mg TAB PO SCH (08:37)
[2020-05-22] MEDS: Finasteride 5 MG TAB PO SCH (08:37)
[2020-05-22] MEDS: Aspirin 81 mg Enteric Coated Tablet PO SCH (08:37)
[2020-05-22] MEDS: hydrALAZINE 25 MG TAB PO SCH ×3 (08:37→20:27)
[2020-05-22] MEDS: Vit A,C & E/Lutein/Minerals Tablet PO SCH (08:42)
[2020-05-22] MEDS: Carvedilol 6.25 MG TAB PO SCH ×2 (08:43→20:13)
[2020-05-22] MEDS: Ascorbic Acid 500 mg Chewable Tablet PO SCH (08:43)
[2020-05-22] MEDS: NIFEdipine XL 90 MG TAB PO SCH (08:43)
[2020-05-22] MEDS: Calcium Carbonate 600 MG + Vit D TAB PO SCH (08:43)
[2020-05-22] MEDS: Clopidogrel Bisulfate 75 MG TAB PO SCH (08:43)
[2020-05-22] MEDS: Ubidecarenone 50 MG CAP PO SCH ×2 (08:43→20:12)
[2020-05-22] MEDS ORDERED: hydrALAZINE 25 MG TAB PO SCH ×2 (09:44→10:00)
--- NOTE | 2020-05-22 10:05 | PRG ---
DATE OF SERVICE: 05/22/2020 SUBJECTIVE: Mr. Lizama looks dramatically less dyspneic and more alert today. He states he is feeling better. He had excellent response to diuretic yesterday and was net negative almost to 2400 mL. He has not had any chest pain or palpitations. OBJECTIVE: VITAL SIGNS: Blood pressure is 128/81, heart rate 101, respirations 24, saturation 98%. GENERAL: He is sitting in chair. He is awake and very alert today. He denies pain. He has minimal ecchymosis in the left cervical triangle following his carotid stenting. LUNGS: Clear. HEART: Regular rate and rhythm. He has a grade 3 systolic murmur at the right upper sternal border. ABDOMEN: Soft. There is no organomegaly. EXTREMITIES: He has trace edema. LABORATORY DATA: White count today 11,600, hemoglobin is 8.9 with hematocrit of 26.8, and platelet count 137,000. Chemistries include sodium 138, potassium 3.6, chloride 110, CO2 is 19, BUN 42, creatinine 2.7, this is increased slightly from creatinine 2.3 done on the . IMPRESSION: 1. Status post stenting of the left common carotid. 2. Severe aortic stenosis with calculated aortic valve area of 0.63 cm2. PLAN: Radiographically, he is much better today following diuresis consistent with improvement in his aortic stenosis and associated pulmonary edema. He is in desperate need of TAVR procedure and hopefully this can be arranged fairly soon. I do not know that he can go home directly from the ICU, but appears to be a candidate for transfer to the floor for mobilization, further adjustment in medication regimen and assessment if discharge needs. Job ID: [id number]
--- NOTE | 2020-05-22 10:06 | PRG ---
DATE OF SERVICE: 05/22/2020 SUBJECTIVE: Mr. Lizama is a 79-year-old white male, followed up for his acute kidney injury on top of his chronic renal failure. He underwent left carotid artery revascularization. During his extubation, developed flash pulmonary edema. He has been diuresed. He is feeling better after his pulmonary edema. He is currently on p.r.n. Lasix. Cardiology is following. He also has significant aortic stenosis and eventually will undergo a TAVR. No other complaints today. He has no chest pain. Shortness of breath is much improved. OBJECTIVE: VITAL SIGNS: Blood pressure is 98/75, heart rate 119, respiratory rate 24, O2 saturations 98%. GENERAL: Noted to be awake, alert, sitting comfortable, not in distress. SKIN: Adequate turgor. HEENT: Pinkish conjunctivae. Anicteric sclerae. No neck mass. No carotid bruits. No JVD. CHEST: No deformities. LUNGS: Clear breath sounds. HEART: Normal sinus rhythm. Grade 2/6 systolic murmur. No gallops. No rubs. ABDOMEN: Globular, soft, and nontender. No masses. EXTREMITIES: No edema. MEDICATIONS: Medications of May 22, 2020, was reviewed. LABORATORY DATA: Laboratories of May 22, 2020; white count 11.6, hemoglobin 8.9. Sodium 138, potassium 3.6, chloride 110, carbon dioxide 19, BUN 42, creatinine 2.67, calcium 8.7. Chest x-ray; improving CHF. ASSESSMENT/PLAN: 1. Acute kidney injury on top of his chronic renal failure, superimposed prerenal azotemia. Renal function slightly worsening over the last few days. This could be a reflection of the previous diuretic regimen. No indication for any dialytic intervention. Please note that the GFR is noted at 23 mL/minute. 2. Hypertension-BP on the lower side. We will decrease hydralazine from 50 to 25 mg p.o. t.i.d. Currently, lisinopril is on hold due to his worsening renal dysfunction. 3. Peripheral vascular disease-the patient is status post left carotid artery revascularization. 4. Aortic stenosis-for eventual transcatheter aortic valve replacement. 5. Agree with current management. Recheck Recheck basic metabolic panel and CBC in a.m. Job ID: [id number]
--- NOTE | 2020-05-22 11:53 | PDOC.CPN ---
- Subjective Date: 05/22/20 Time: 11:51 Interval history: He is doing much better. No angina. no syncope, presyncoe, no chest pain. breathing improved. Still needing O2 supplementation. - Review of Systems General: denies: fever/chills, weight/appetite/sleep changes, night sweats, fatigue Respiratory: reports: exercise intolerance. denies: cough, congestion, shortness of breath Cardiovascular: denies: chest pain, palpitation, edema, paroxysmal nocturnal dyspnea, orthopnea Gastrointestinal: denies: nausea, vomiting, diarrhea, constipation, abd pain, GI bleeding Musculoskeletal: denies: pain, tenderness, stiffness, swelling, arthritis/ arthralgias Neurological: denies: numbness, syncope, seizure, weakness - Objective Allergies/Adverse Reactions: Allergies Allergy/AdvReac Type Severity Reaction Status Date / Time meperidine HCl [From Demerol] Allergy Verified 05/13/20 10:39 Visit Medications: Current Medications Acetaminophen (Tylenol) 650 mg PO Q4H PRN PRN Reason: Fever > 101 or headache Albuterol/Ipratropium (Duoneb) 3 ml NEB [id number] PRN PRN Reason: SHORTNESS OF BREATH Albuterol/Ipratropium (Duoneb) 3 ml NEB [id number] [facility] Last Admin: 05/22/20 06:33 Dose: 3 ml Ascorbic Acid (Vitamin C) 500 mg PO DAILY [facility] Last Admin: 05/22/20 08:43 Dose: 500 mg Aspirin (Ecotrin) 81 mg PO DAILY [facility] Last Admin: 05/22/20 08:37 Dose: 81 mg Atorvastatin Calcium (Lipitor) 10 mg PO HS [facility] Last Admin: 05/21/20 21:35 Dose: 10 mg Calcium/Vitamin D (Caltrate 600 + Vit D) 1 tab PO DAILY [facility] Last Admin: 05/22/20 08:43 Dose: 1 tab Carvedilol (Coreg) 6.25 mg PO BID [facility] Last Admin: 05/22/20 08:43 Dose: 6.25 mg Clonidine (Catapres) 0.1 mg PO PRN PRN PRN Reason: HTN SBP>180 Clopidogrel Bisulfate (Plavix) 75 mg PO DAILY [facility] Last Admin: 05/22/20 08:43 Dose: 75 mg Coenzyme Q10 (Coenzyme Q10) 100 mg PO BID [facility] Last Admin: 05/22/20 08:43 Dose: 100 mg Finasteride (Proscar) 5 mg PO DAILY [facility] Last Admin: 05/22/20 08:37 Dose: 5 mg Furosemide (Lasix) 40 mg SLOW IVP 0600,1400 [facility] Last Admin: 05/22/20 06:41 Dose: 40 mg Hydralazine HCl (Apresoline) 10 mg SLOW IVP Q6H PRN PRN Reason: To Keep SBP < 150 mmHG Hydralazine HCl (Apresoline) 25 mg PO TID [facility] Hydralazine HCl (Apresoline) 25 mg PO NOW [facility] Stop: 05/22/20 12:00 Last Admin: 05/22/20 10:22 Dose: Not Given Nitroglycerin/Dextrose (Nitroglycerin 50 Mg/250 Ml Bot) 250 mls @ 0 mls/hr IVPB PRN PRN; Protocol PRN Reason: To Keep SBP < 150 mmHG Phenylephrine HCl (Matty-Synephrine) 250 mls @ 0 mls/hr IVPB PRN PRN; Protocol PRN Reason: To Keep SBP > 100 mmHG Insulin Glargine 15 units/ (Miscellaneous Medication) 0.15 mls @ 0 mls/hr SC DAILY [facility] Last Admin: 05/22/20 08:36 Dose: 0.15 mls Fentanyl Citrate 2,000 mcg/ (Sodium Chloride) 100 mls @ 0 mls/hr IV INF [facility]; Protocol Stop: 06/19/20 01:05 Fentanyl Citrate (Fentanyl Bolus) 250 mls @ 0 mls/hr IVPB PRN PRN PRN Reason: Breakthrough pain/agitation Stop: 06/19/20 01:05 Amiodarone HCl 450 mg/Miscellaneous Medication 1 each/ Dextrose/Water 259 mls @ 0 mls/hr IVPB INF [facility]; Protocol Last Admin: 05/22/20 07:32 Dose: 259 mls Insulin Human Lispro (Humalog) 15 units SC ASDIR PRN PRN Reason: Diabetes Insulin Human Regular (Humulin R) 0 units SC .MILD SLIDING SCALE PRN PRN Reason: Mild Correctional Scale Last Admin: 05/22/20 11:27 Dose: 5 unit Levothyroxine Sodium (Synthroid) 150 mcg PO 0600 [facility] Last Admin: 05/22/20 06:41 Dose: 150 mcg Lorazepam (Ativan) 2 mg SLOW IVP Q1H PRN PRN Reason: Breakthrough agitation Stop: 06/19/20 01:05 Last Admin: 05/20/20 01:19 Dose: 2 mg Morphine Sulfate (Morphine) 2 mg SLOW IVP Q1H PRN PRN Reason: BREAKTHROUGH PAIN/Agitation Stop: 06/19/20 01:05 Multivitamins/Minerals (Ocuvite With Lutein) 1 tab PO DAILY [facility] Last Admin: 05/22/20 08:42 Dose: 1 tab Nifedipine (Procardia Xl) 90 mg PO DAILY [facility] Last Admin: 05/22/20 08:43 Dose: 90 mg Ondansetron HCl (Zofran) 4 mg IVP Q6H PRN PRN Reason: Nausea/Vomiting Last Admin: 05/20/20 00:02 Dose: 4 mg Promethazine HCl (Phenergan) 6.25 mg IM Q4H PRN PRN Reason: Nausea/Vomiting Propofol (Diprivan) 1,000 mg IV INF PRN; Protocol PRN Reason: TO ACHIEVE GOAL RASS Stop: 06/19/20 01:05 Last Admin: 05/20/20 08:18 Dose: 1,000 mg Propofol (Diprivan Bolus) 20 mg IV Q5MIN PRN PRN Reason: BREAKTHROUGH AGITATION Stop: 06/19/20 01:05 Tamsulosin HCl (Flomax) 0.4 mg PO DAILY [facility] Last Admin: 05/22/20 08:37 Dose: 0.4 mg Trimethoprim/Sulfamethoxazole (Bactrim Ds) 1 tab PO DAILY [facility] Last Admin: 05/22/20 08:37 Dose: 1 tab Vital Signs & Weight: Vital Signs Temp Pulse Pulse Pulse Resp BP BP 05/22/20 11:00 98.1 F 05/22/20 10:22 101 H 128/81 05/22/20 10:00 107 H 100 105/63 05/22/20 08:43 101 H 128/81 05/22/20 08:37 98 05/22/20 08:00 05/22/20 07:00 99.0 F 05/22/20 06:35 92 05/22/20 06:33 97 20 05/22/20 04:00 98.1 F 05/22/20 02:47 119 H 05/22/20 00:25 95 22 H 05/22/20 00:22 96 05/22/20 00:00 97.7 F BP Pulse Ox 05/22/20 11:00 05/22/20 10:22 05/22/20 10:00 126/70 05/22/20 08:43 05/22/20 08:37 05/22/20 08:00 98 05/22/20 07:00 05/22/20 06:35 05/22/20 06:33 88 L 05/22/20 04:00 05/22/20 02:47 05/22/20 00:25 92 L 05/22/20 00:22 05/22/20 00:00 99 Weight 187 lb 9.814 oz - Physical Exam General: alert & oriented x3 HEENT: mucus membranes moist Neck: supple neck Cardiac: regular rate and rhythm Lungs: clear to auscultation Neuro: grossly intact Abdomen: active bowel sounds Extremities: no edema Skin: clear Musculoskeletal: no pain - Labs Result Diagrams: 05/22/20 03:31 05/22/20 03:31 Troponin/CKMB Troponin I 0.272 ng/mL (< 0.028) H 05/20/20 03:13 - Telemetry Sinus rhythms and dysrhythmias: sinus rhythm - Assessment/Plan Assessment/Plan: 1. Severe aortic stenosis 2. Flash pulmonary edema 3. Respiratory insufficiency 4. S/P left carotid open stenting 5. Paroxysmal afib PLAN: - Will hold off on any more lasix. - Will switch amio drip to PO load. - Will discuss with Dr. Malik about timing of full anticoagulation for stroke prophylaxis. - Will need TAVR in the near future as it is most likely reason for decompensation. - Dr. Aponte to follow in the morning.
[2020-05-22 13:09] VITALS: BMI 27.6
[2020-05-22] MEDS: Amiodarone 200 MG TAB PO SCH ×2 (14:05→20:13)
[2020-05-22] MEDS ORDERED: Dextrose 5% in Water 1,000 ML IV PRN (19:32)
[2020-05-22] MEDS ORDERED: Dextrose 50% Abboject 50 ML SYRINGE IVP PRN (19:32)
[2020-05-22] MEDS: Atorvastatin Calcium 10 MG TAB PO SCH (20:13)
[2020-05-23 03:49] LABS: #Lymphocytes 0.9 thou/uL (1.20-3.40); #Monocytes 1.2 thou/uL (0.11-0.59); #Neutrophils 9.9 thou/uL (1.40-6.50); %Basophils 0.2 % (0.0-1.0); %Eosinophils 0.4 % (0.0-10.0); %Lymphocytes 7.7 % (21.0-51.0); %Monocytes 9.9 % (0.0-10.0); %Neutrophils 81.8 % (42.0-75.0); Hemoglobin 8.4 g/dL (14.0-18.0); Mean Corpuscular HGB CONC 32.9 g/dL (32.0-36.0); Mean Corpuscular Hemoglobin 31.9 pg (27.0-31.0); Mean Corpuscular Volume 96.7 fL (78.0-98.0); Mean Platelet Volume 9.3 fL (7.4-10.4); Platelet Count 153 thou/uL (130-400); RBC Distribution Width 12.3 % (11.5-14.5); Red Blood Cell (RBC) Count 2.65 mill/uL (4.70-6.10); White Blood Cell (WBC) Count 12.1 thou/uL (4.8-10.8)
[2020-05-23 04:08] LABS: Anion Gap 14 mmol/L (10-20); BUN (Urea Nitrogen) 58 mg/dL (8.4-25.7); Calc. Creatinine Clearance 21 mL/min (70-130); Carbon Dioxide 20 mmol/L (23-31); Chloride 108 mmol/L (98-107); Estimated GFR-MDRD 16; Glucose 197 mg/dL (83-110); Potassium 3.7 mmol/L (3.5-5.1); Sodium 138 mmol/L (136-145)
[2020-05-23] MEDS: Furosemide 40 MG/4 ML VIAL SLOW IVP SCH (05:01)
[2020-05-23] MEDS: Levothyroxine 150 MCG TAB PO SCH (05:01)
[2020-05-23] MEDS: Insulin Regular 300 UNITS/3 ML VIAL SC PRN ×3 (05:02→15:58)
--- NOTE | 2020-05-23 08:26 | RAD ---
PORTABLE CHEST: COMPARISON: Prior day's exam. HISTORY: Respiratory distress. FINDINGS: Heart size is enlarged. Postop sternotomy changes are seen. There are worsening interstitial alveol ar infiltrates in the right lung as compared to the prior examination. Some of the changes in the le ft lung have improved as compared to a 05/21/2020 exam. IMPRESSION: Worsening right-sided interstitial alveolar infiltrates with some improvement to the left-sided massey es as compared to the 05/21 exam. There is the possibility that some of this is related to an asymmet donya edema pattern. Continued followup films are recommended. POS: NIKUNJ
[2020-05-23] MEDS: NIFEdipine XL 90 MG TAB PO SCH (08:27)
[2020-05-23] MEDS: Carvedilol 6.25 MG TAB PO SCH (08:28)
[2020-05-23] MEDS: Sulfameth/Trimethoprim DS 800-160mg TAB PO SCH (08:28)
[2020-05-23] MEDS: Finasteride 5 MG TAB PO SCH (08:28)
[2020-05-23] MEDS: Calcium Carbonate 600 MG + Vit D TAB PO SCH (08:28)
[2020-05-23] MEDS: Tamsulosin HCl 0.4 MG CAP PO SCH (08:28)
[2020-05-23] MEDS: Ubidecarenone 50 MG CAP PO SCH ×2 (08:28→22:49)
[2020-05-23] MEDS: Amiodarone 200 MG TAB PO SCH ×3 (08:29→22:48)
[2020-05-23] MEDS: Aspirin 81 mg Enteric Coated Tablet PO SCH (08:29)
[2020-05-23] MEDS: Clopidogrel Bisulfate 75 MG TAB PO SCH (08:29)
[2020-05-23] MEDS: Ascorbic Acid 500 mg Chewable Tablet PO SCH (08:29)
[2020-05-23] MEDS: Vit A,C & E/Lutein/Minerals Tablet PO SCH (08:31)
--- NOTE | 2020-05-23 09:34 | PRG ---
DATE OF SERVICE: 05/23/2020 SUBJECTIVE: Mr. Lizama is a 79-year-old white male, followed up by the Renal Service for his underlying acute kidney injury on top of his chronic renal failure. He initially underwent left carotid artery revascularization. During the said extubation, developed a flash pulmonary edema. Cardiology has been following this patient. The feeling is this may be related to his aortic stenosis. He has been diuresed over the weekend, then renal function has worsened and we feel that this is reflective of the diuretic regimen. Blood pressure has also been running on the low side. For this reason, we will be adjusting his BP medications. No acute events noted last night. No new complaints. OBJECTIVE: VITAL SIGNS: Blood pressure 98/72, heart rate 124, respiratory rate is 32, O2 saturation 96%. GENERAL: The patient is noted to be awake, alert, sitting comfortable, not in distress. SKIN: Adequate turgor. HEENT: He has slightly pale conjunctivae. Anicteric sclerae. No neck mass. No carotid bruits. No JVD. CHEST: No deformities. LUNGS: Clear breath sounds. No wheezing. No crackles. HEART: Tachycardic. Grade 2/6 systolic murmur. No gallops. No rubs. ABDOMEN: Globular, soft, nontender. EXTREMITIES: No edema. MEDICATIONS: Medications of May 23, 2020, was reviewed. LABORATORY DATA: Laboratories of May 23, 2020; white count 12.1, hemoglobin 8.4. Sodium 138, potassium 3.7, chloride 108, carbon dioxide 20, BUN 58, creatinine 3.63, glucose 197, calcium 9.0. ASSESSMENT AND PLAN: 1. Acute kidney injury on top of his chronic renal failure. Creatinine has noted from 2.67 yesterday to currently 3.63. Please note, we will be discontinuing his furosemide. Due to the worsening renal dysfunction, we could consider giving this patient an albumin infusion of 4 doses. 2. Tachycardia/low BP - we will discontinue hydralazine. Albumin infusion 25 g IV q.6h. 3. Aortic stenosis - the patient will be eventually undergoing a TAVR. 4. Congestive heart failure, clinically much improved. Please note that furosemide will be discontinued. Job ID: [id number]
[2020-05-23] MEDS: hydrALAZINE 25 MG TAB PO SCH (09:35)
[2020-05-23] MEDS: Insulin Glargine 15 UNITS in Pre-Filled Syringe 1 EACH SC SCH (09:39)
--- NOTE | 2020-05-23 10:33 | PRG ---
DATE OF SERVICE: 05/23/2020 SUBJECTIVE: This morning, he is awake, alert, responsive, difficulty breathing last night. OBJECTIVE: VITAL SIGNS: His pulse 109, blood pressure 115/84, temperature 99, saturations 96%. CHEST: Bilateral crackles, rhonchi, right greater than left. CARDIAC: Normal S1 and S2. No gallops. ABDOMEN: No masses. LABORATORY DATA: White count 12,000, hemoglobin and hematocrit are 8 and 25, BUN and creatinine 58 and 3.6. Electrolytes are normal. Glucose 209. IMAGING STUDIES: X-ray still shows infiltrate. ASSESSMENT: 1. Renal failure, worsening. 2. Respiratory failure, congestive heart failure. 3. Aortic stenosis, congestive heart failure. PLAN: Continue nocturnal CPAP for his sleep apnea. Start on empiric antibiotics. Because of his worsening renal failure, I am going to switch him over to a different antibiotic. We will follow. Job ID: [id number]
--- NOTE | 2020-05-23 10:38 | PRG ---
DATE OF SERVICE: 05/23/2020 This morning, he is awake, alert, and responsive, but he was having difficulty breathing last night. Note is outlined below. Job ID: [id number]
[2020-05-23] MEDS ORDERED: Cefdinir 300 MG CAP PO SCH (11:15)
[2020-05-23] MEDS: Albumin 25% 25 GM/100 ML BOT IVPB SCH ×3 (11:19→23:33)
--- NOTE | 2020-05-23 14:32 | PRG ---
DATE OF SERVICE: 05/23/2020 SUBJECTIVE: Mr. Lizama is feeling better today, but still feels short of breath. OBJECTIVE: VITAL SIGNS: Blood pressure is in the mid 90s systolic, pulse is in the 60s. LUNGS: Clear anteriorly and laterally. CARDIAC: There is a high-pitched systolic murmur of aortic stenosis. ABDOMEN: Soft, nontender. EXTREMITIES: There is only minimal edema. PERTINENT LABORATORY DATA: Hemoglobin is 8.4. His creatinine is up to 3.6. DIAGNOSTIC STUDIES: I reviewed the echocardiogram. The aortic valve area is less than 0.7. The patient did have a cardiac catheterization done on January 21 of this year with patent internal mammary to the LAD, 70% calcified mid circumflex, 70% ostial right coronary, 70% lesion in right common femoral artery. He had occluded vein graft to the obtuse marginal and right coronary. There was hopes that the patient could be a candidate for transcutaneous aortic valve replacement. ASSESSMENT: 1. Aortic stenosis. 2. Coronary artery disease. 3. Carotid arterial disease, status post procedure per Dr. Malik last week. PLAN: 1. Hold Procardia and Coreg. 2. Try to diurese some more tomorrow. 3. I will discuss with in [place] about potential transfer once he is more stable. The other option would be open heart surgery for valve replacement and re-bypass that would be problematic in view of his overall status, but that could potentially . We will discuss with Dr. Malik further as well. Job ID: [id number]
[2020-05-23] MEDS ORDERED: Insulin Glargine 15 UNITS in Pre-Filled Syringe SC SCH (16:00)
[2020-05-23] MEDS: Ondansetron PF 4 MG/2 ML Vial IVP PRN (17:13)
[2020-05-23 20:42] LABS: Actual Bicarbonate (HCO3a) 21.1 mEq/L (22-28); Base Excess (BEa) -3.7 mEq/L (-2.0 to +3.0); CO2 Tension 36.8 mmHg (35.0-45.0); Calcium, Ionized (arterial) 1.19 mmol/L (1.12-1.30); Carboxyhemoglobin (COHb) 0.3 gm% (0.0-3.0); Hemoglobin (Hb) 9.1 g/dL (14.0-18.0); Potassium - ABG Lab 3.97 mmol/L (3.70-5.30); pH, Arterial 7.38 (7.35-7.45)
[2020-05-23 20:43] LABS: O2 Tension (PaO2), arterial 51.7 mmHg (> 70.0)
[2020-05-23 20:44] LABS: Puncture Site L RADIAL
[2020-05-23] MEDS ORDERED: Propofol 1,000 MG/100 ML VIAL IV ONE (20:57)
[2020-05-23] MEDS ORDERED: Midazolam HCl 2 mg/2 ml Vial ONE (21:13)
[2020-05-23] MEDS ORDERED: Ventilator Sedation Protocol 1 EACH FS ONE (21:22)
[2020-05-23] MEDS ORDERED: Propofol BOLUS 1,000 MG/100 ML VIAL IV PRN (21:25)
[2020-05-23] MEDS ORDERED: Morphine 2 MG/ML SYRINGE SLOW IVP PRN (21:25)
[2020-05-23] MEDS ORDERED: Lorazepam 2 MG/ML VIAL SLOW IVP PRN (21:25)
[2020-05-23] MEDS ORDERED: Fentanyl BOLUS 250 ML IVPB PRN (21:25)
[2020-05-23] MEDS ORDERED: DISCONTINUE PREVIOUS NARCOTIC PAIN MEDICATIONS AND BENZODIAZEPINES FS SCH (21:25)
[2020-05-23] MEDS ORDERED: Midazolam HCl 2 mg/2 ml Vial SLOW IVP SCH (21:30)
[2020-05-23] MEDS: Propofol 1,000 MG/100 ML VIAL IV PRN (21:30)
[2020-05-23 22:38] LABS: Actual Bicarbonate (HCO3a) 20.5 mEq/L (22-28); Base Excess (BEa) -4.4 mEq/L (-2.0 to +3.0); CO2 Tension 36.7 mmHg (35.0-45.0); Calcium, Ionized (arterial) 1.18 mmol/L (1.12-1.30); Carboxyhemoglobin (COHb) 0.3 gm% (0.0-3.0); Hemoglobin (Hb) 8.7 g/dL (14.0-18.0); Potassium - ABG Lab 4.07 mmol/L (3.70-5.30); pH, Arterial 7.37 (7.35-7.45)
[2020-05-23] MEDS: Atorvastatin Calcium 10 MG TAB PO SCH (22:48)
[2020-05-23] MEDS: fentaNYL Citrate/PF 2,000 MCG in Sodium Chloride 0.9% 60 ML IV SCH (23:04)
[2020-05-23] MEDS: Vecuronium 10 MG VIAL IVP PRN (23:19)
[2020-05-24] MEDS: Vecuronium 10 MG VIAL IVP PRN ×3 (00:50→07:23)
[2020-05-24 03:36] LABS: #Basophils 0.1 thou/uL (0.0-0.2); #Eosinphils 0.1 thou/uL (0.0-0.7); #Lymphocytes 0.8 thou/uL (1.20-3.40); #Monocytes 1.1 thou/uL (0.11-0.59); #Neutrophils 7.2 thou/uL (1.40-6.50); %Basophils 0.7 % (0.0-1.0); %Lymphocytes 8.7 % (21.0-51.0); %Monocytes 12.1 % (0.0-10.0); %Neutrophils 77.7 % (42.0-75.0); Hemoglobin 8.1 g/dL (14.0-18.0); Mean Corpuscular HGB CONC 33.5 g/dL (32.0-36.0); Mean Corpuscular Hemoglobin 33.9 pg (27.0-31.0); Mean Platelet Volume 9.7 fL (7.4-10.4); Platelet Count 130 thou/uL (130-400); RBC Distribution Width 12.5 % (11.5-14.5); Red Blood Cell (RBC) Count 2.39 mill/uL (4.70-6.10); White Blood Cell (WBC) Count 9.3 thou/uL (4.8-10.8)
[2020-05-24 04:06] LABS: Anion Gap 19 mmol/L (10-20); BUN (Urea Nitrogen) 72 mg/dL (8.4-25.7); Calc. Creatinine Clearance 17 mL/min (70-130); Calcium 8.9 mg/dL (7.8-10.44); Carbon Dioxide 16 mmol/L (23-31); Chloride 108 mmol/L (98-107); Estimated GFR-MDRD 13; Glucose 131 mg/dL (83-110); Potassium 4.5 mmol/L (3.5-5.1); Sodium 138 mmol/L (136-145)
[2020-05-24 05:55] LABS: O2 Tension (PaO2), arterial 47.2 mmHg (> 70.0); Puncture Site L RADIAL
[2020-05-24] MEDS: Levothyroxine 150 MCG TAB PO SCH (05:55)
[2020-05-24] MEDS: Albumin 25% 25 GM/100 ML BOT IVPB SCH ×3 (05:55→18:20)
[2020-05-24 05:57] LABS: ALV-art Gradient 548.625 (0-20)
[2020-05-24 07:56] LABS: Actual Bicarbonate (HCO3a) 19.9 mEq/L (22-28); Base Excess (BEa) -3.8 mEq/L (-2.0 to +3.0); CO2 Tension 30.4 mmHg (35.0-45.0); Calcium, Ionized (arterial) 1.15 mmol/L (1.12-1.30); Carboxyhemoglobin (COHb) 0.3 gm% (0.0-3.0); Hemoglobin (Hb) 7.8 g/dL (14.0-18.0); Potassium - ABG Lab 3.51 mmol/L (3.70-5.30); pH, Arterial 7.43 (7.35-7.45)
[2020-05-24 07:57] LABS: Puncture Site RRA
--- NOTE | 2020-05-24 08:05 | RAD ---
EXAM: CHEST ONE VIEW HISTORY: Post intubation. COMPARISON: 05/23/2020 FINDINGS: There has been interval placement of an endotracheal tube with tip overlying the T4-5 level and above the level of the albert. Nasogastric tube has also been placed in the interim which courses in the upper abdomen, but the tip is not imaged. Median sternotomy wires are again seen. Patient is rotated to the right which accentuates the cardiac silhouette and mediastinal structures. Subsegmental atelectasis is present in the left midlung zone. Increased interstitial and alveolar opacities are ag ain seen diffusely throughout the right lung. There is suggestion of patchy parenchymal density at the medial left lung base. Inferior aspect of the bilateral costophrenic angles are not imaged on thi s exam. Vascular calcifications are seen in the thoracic aorta. No other interval change. IMPRESSION: 1. Persistent increased interstitial and alveolar opacities throughout the right lung which do appear mildly increased from prior study, and findings may related to worsening infectious process. Continued follow-up to resolution is recommended. 2. Subsegmental atelectasis left lung base with mild patchy density at the left lung base but aeratio n at the left lung base does appear mildly improved from prior exam. 3. Interval placement of endotracheal tube and nasogastric tube.
--- NOTE | 2020-05-24 08:46 | OP ---
DATE OF PROCEDURE: 05/23/2020 I was called approximately 8:30 for shortness of breath. I was informed by the nursing staff Mr. Lizama did not look comfortable. Blood gas did not show signs of respiratory fatigue, but nurses duly realized that he was starting to get tired. I attended at the bedside about 9 p.m. I agreed with her assessment. I recommended intubation. He agreed. He was sedated with 1 mg Versed. A bite block was placed in his mouth. Fiberoptic bronchoscope was brought to the bedside with an endotracheal tube. Bronchoscope was introduced into his mouth. His vocal cords were easily visualized and the bronchoscope was advanced and secured above the main albert. The bronchoscope was withdrawn. He tolerated the intubation well. He was given an additional 1 mg Versed and went to sleep. He will be sedated per the sedation protocol. He is connected to mechanical ventilation. We will check a blood gas in the morning. Overall, he has no acid-base disorder, so there is no reason to getting a recheck of blood gas again now. I suspect he will be fine. The big issue at hand is what to do with his aortic valve. I have discussed the above with Dr. Aponte and Dr. Malik. Transfer to [facility] in [place] for a TAVR is being contemplated. Critical care time, 40 minutes. Job ID: [id number]
[2020-05-24] MEDS ORDERED: Insulin Glargine 30 UNITS in Pre-Filled Syringe SC SCH (09:00)
[2020-05-24] MEDS ORDERED: Cefdinir 300 MG CAP PO SCH (09:00)
--- NOTE | 2020-05-24 09:04 | PRG ---
DATE OF SERVICE: 05/24/2020 SUBJECTIVE: Mr. Lizama is a 79-year-old white male, followed up by the Renal Service for his acute kidney injury on top of his chronic renal failure. He was admitted for CHF. Please note, he has a history of a tight aortic stenosis. Last night, he developed acute respiratory failure, was intubated. He has been diuresed in the last few days, and we placed the diuretics on hold temporarily due to the worsening renal dysfunction. He was also noted to be hypotensive yesterday and for that reason, his hydralazine was discontinued. His renal function continues to worsen. I feel that the worsening renal dysfunction is a hemodynamically-mediated renal dysfunction due to his diuresis as well as tight aortic stenosis. Arrangements are being attempted to see if he could be transferred to [place] for repair of his aortic stenosis. OBJECTIVE: VITAL SIGNS: Blood pressure is 122/63, heart rate 75, and O2 saturation is 99%. GENERAL: The patient is sedated, intubated, and vent support. HEENT: Slightly pale conjunctivae. Anicteric sclerae. NECK: No neck mass. No carotid bruits. No JVD. CHEST: No deformities. LUNGS: Decreased breath sounds. HEART: Normal sinus rhythm, grade 2/6 systolic murmur. No gallops. No rubs. ABDOMEN: Globular, soft, nontender. EXTREMITIES: No edema. MEDICATIONS: Medications of May 24, 2020, were reviewed. LABORATORY DATA: Laboratories of May 24, 2020; white count 9.3, hemoglobin 8.1. Sodium 138, potassium 4.5, chloride 108, carbon dioxide 16, BUN 72, creatinine 4.44, GFR 13 mL/minute, and calcium 8.9. ASSESSMENT AND PLAN: 1. Congestive heart failure - secondary to a tight aortic stenosis. Cardiology is following. Possibility of transferring this patient to another facility for emergent repair of his aortic stenosis. 2. Acute kidney injury - superimposed hemodynamically-mediated renal dysfunction. The plan is to give him 4 more doses of IV albumin 25 g IV q.6 to optimize his hemodynamics. 3. Acute respiratory failure. The patient was intubated last night due to some degree of respiratory distress. 4. Overall, prognosis remains guarded with the patient. No indication for any emergent dialysis today. I will re-evaluate this patient again in a.m. Dialysis will be time depending on his clinical situation. Job ID: [id number]
[2020-05-24] MEDS: Calcium Carbonate 600 MG + Vit D TAB PO SCH (09:28)
[2020-05-24] MEDS: Ubidecarenone 50 MG CAP PO SCH ×2 (09:28→20:27)
[2020-05-24] MEDS: Aspirin 81 mg Enteric Coated Tablet PO SCH (09:28)
[2020-05-24] MEDS: Ascorbic Acid 500 mg Chewable Tablet PO SCH (09:29)
[2020-05-24] MEDS: Amiodarone 200 MG TAB PO SCH ×3 (09:29→20:28)
[2020-05-24] MEDS: Finasteride 5 MG TAB PO SCH (09:29)
[2020-05-24] MEDS: Clopidogrel Bisulfate 75 MG TAB PO SCH (09:29)
[2020-05-24] MEDS: Tamsulosin HCl 0.4 MG CAP PO SCH (09:29)
[2020-05-24] MEDS: Vit A,C & E/Lutein/Minerals Tablet PO SCH (09:32)
--- NOTE | 2020-05-24 10:30 | PRG ---
DATE OF SERVICE: 05/24/2020 SUBJECTIVE: Mr. Lizama had to be reintubated last night. He is currently intubated and sedated on the ventilator. OBJECTIVE: VITAL SIGNS: His blood pressure 119/59, pulse is in the 80s, it is sinus. LUNGS: Clear. CARDIAC: There is a high-pitched systolic murmur. ABDOMEN: Soft and nontender. EXTREMITIES: There is no edema. ASSESSMENT: 1. Severe aortic stenosis. 2. Coronary artery disease with a patent internal mammary to the LAD, occluded vein graft to the circumflex and right coronary. 3. Peripheral disease with 70% lesion in the right common femoral artery. 4. Renal failure, now with creatinine increased up to 4.44. PLAN: The patient is obviously critically ill. We will discuss options with Dr. Malik. the ischemic heart disease is probably playing some role in his decompensation. Question whether he would be a candidate for surgery with re-bypassing the right coronary and obtuse marginal with valve replacement. It is not clear to me he would be a candidate for transcutaneous valve. There has been really no low risk option available. We will discuss with Dr. Malik today. Job ID: [id number]
[2020-05-24] MEDS: Cefepime 0.5 GM, Admixture Fee 1 EACH in Sodium Chloride 0.9% 100 ML IVPB SCH ×2 (11:06→20:57)
[2020-05-24] MEDS ORDERED: Sodium Chloride 0.9% 1,000 ML IV SCH (12:45)
--- NOTE | 2020-05-24 16:48 | PRG ---
DATE OF SERVICE: 05/24/2020 SUBJECTIVE: A 79-year-old gentleman is re-intubated yesterday with progressive respiratory failure, hypoxemia. X-ray shows diffuse worsening infiltrates, right greater than left. This morning, he is on sedation. OBJECTIVE: VITAL SIGNS: Pulse 75, blood pressure 122/60, sats are 90%. His I's and O's have been consistently negative. His maximum temperature has been 98. CHEST: Decreased breath sounds. Rhonchi, right greater than left. CARDIAC: Normal S1, S2. No gallops. ABDOMEN: No masses. LABORATORY DATA: White count 9000, H and H of 8 and 24, platelet count is normal. PO2 is 66, pCO2 is 30, pH is 7.43, rate of 20, PEEP of 10, 90%. Creatinine is 4, BUN is 72, glucose 267. IMPRESSION: Aortic stenosis, recent carotid surgery, respiratory failure, congestive heart failure, renal failure. PLAN: The patient unfortunately had to get reintubated again; we will leave him sedated for several days on the vent. The question is whether he can be transferred to a tertiary care hospital where they can do a percutaneous valve. TIME SPENT: One-half hour of critical care time. Job ID: [id number]
[2020-05-24] MEDS: Insulin Regular 300 UNITS/3 ML VIAL SC PRN (17:22)
[2020-05-24] MEDS ORDERED: Furosemide 40 MG/4 ML VIAL SLOW IVP SCH (17:30)
[2020-05-24] MEDS: Atorvastatin Calcium 10 MG TAB PO SCH (20:28)
[2020-05-24] MEDS: Propofol 1,000 MG/100 ML VIAL IV PRN (20:28)
[2020-05-25] MEDS: Albumin 25% 25 GM/100 ML BOT IVPB SCH ×2 (00:31→05:52)
[2020-05-25] MEDS: fentaNYL Citrate/PF 2,000 MCG in Sodium Chloride 0.9% 60 ML IV SCH (02:41)
[2020-05-25] MEDS ORDERED: Albumin 25% 25 GM/100 ML BOT IVPB SCH (03:00)
[2020-05-25 03:33] LABS: #Basophils 0.1 thou/uL (0.0-0.2); #Eosinphils 0.3 thou/uL (0.0-0.7); #Lymphocytes 0.9 thou/uL (1.20-3.40); #Monocytes 1.2 thou/uL (0.11-0.59); %Basophils 0.7 % (0.0-1.0); %Eosinophils 3.7 % (0.0-10.0); %Lymphocytes 10.5 % (21.0-51.0); %Monocytes 14.2 % (0.0-10.0); %Neutrophils 70.9 % (42.0-75.0); Hemoglobin 8.2 g/dL (14.0-18.0); Mean Corpuscular HGB CONC 31.8 g/dL (32.0-36.0); Mean Corpuscular Hemoglobin 32.5 pg (27.0-31.0); Mean Platelet Volume 9.6 fL (7.4-10.4); Platelet Count 130 thou/uL (130-400); RBC Distribution Width 12.6 % (11.5-14.5); Red Blood Cell (RBC) Count 2.53 mill/uL (4.70-6.10); White Blood Cell (WBC) Count 8.4 thou/uL (4.8-10.8)
[2020-05-25 03:57] LABS: Anion Gap 18 mmol/L (10-20); BUN (Urea Nitrogen) 87 mg/dL (8.4-25.7); Calc. Creatinine Clearance 15 mL/min (70-130); Calcium 8.7 mg/dL (7.8-10.44); Carbon Dioxide 15 mmol/L (23-31); Chloride 106 mmol/L (98-107); Estimated GFR-MDRD 11; Glucose 108 mg/dL (83-110); Potassium 4.2 mmol/L (3.5-5.1); Sodium 135 mmol/L (136-145)
[2020-05-25] MEDS: Levothyroxine 150 MCG TAB PO SCH (05:52)
[2020-05-25] MEDS ORDERED: Furosemide 20 MG/2 ML VIAL SLOW IVP SCH (06:00)
[2020-05-25] MEDS ORDERED: Furosemide 100 MG/10 ML VIAL SLOW IVP SCH (08:00)
[2020-05-25] MEDS ORDERED: Amiodarone 450 MG in Dextrose 5% in Water 250 ML IVPB SCH (08:00)
--- NOTE | 2020-05-25 08:19 | PRG ---
DATE OF SERVICE: 05/25/2020 SUBJECTIVE: Mr. Lizama looks extremely ill. OBJECTIVE: VITAL SIGNS: His oxygen saturations are in the 80s. Blood pressure is variable between in the 90s to systolic in the one teens. CARDIAC: Irregular with aortic stenosis murmur. ABDOMEN: Soft. The patient is critically ill. His creatinine is 4.9. Prognosis is extremely poor to guarded. Discussed with the family there is no further intervention, it looks like he is in a terminal situation. They do wish to have him transferred to [place] to see if he would be a candidate for balloon valvuloplasty. Prognosis extremely guarded. The patient will be moved by air ambulance. Job ID: [id number]
[2020-05-25 08:48] VITALS: BP 105/63
[2020-05-25] MEDS: Propofol 1,000 MG/100 ML VIAL IV PRN (08:49)
--- NOTE | 2020-05-25 10:44 | PRG ---
DATE OF SERVICE: 05/25/2020 SUBJECTIVE: He is going to be life-flighted to [place] today for possible percutaneous valve surgery for severe aortic stenosis. OBJECTIVE: VITAL SIGNS: Remains intubated in the vent, pulse 98, respiratory rate , saturations 60% FiO2. His I's and O's have been consistently negative. CHEST: Decreased breath sounds. No wheezing. Minimal crackles. CARDIAC: Normal S1, S2. No gallops. ABDOMEN: No masses. LABORATORY DATA: His last x-ray shows extensive right-sided infiltrate. His creatinine is 4.96. His white count is 8000. H and H 8 and 25, platelet count normal. ASSESSMENT: 1. Worsening respiratory failure and renal failure. 2. Severe aortic stenosis, congestive heart failure. PLAN: The patient will be transferred to [place] for ongoing evaluation. In the meantime, continue diuretics, empiric antibiotics. One-half hour of critical time. Job ID: [id number]
--- NOTE | 2020-05-25 10:53 | PRG ---
DATE OF SERVICE: 05/25/2020 SUBJECTIVE: Mr. Lizama is a 79-year-old white male, followed up by the Renal Service for his acute kidney injury on top of his chronic renal failure. He was admitted for CHF. He has underlying critical aortic stenosis. Attempt to transfer him to [place] was not successful since they are unable to take the patient due to the current COVID situation. We are attempting to see if we could do a lateral transfer with [facility] with Dr. Bolden. His renal function continues to worsen. I suspect there is a component of a hemodynamically mediated dysfunction related to his previous diuresis and underlying decreased EF. OBJECTIVE: VITAL SIGNS: Blood pressure is 105/53, heart rate 112, respiratory rate 22, O2 saturation 95%. GENERAL: The patient is sedated, intubated, on ventilator support. SKIN: Adequate turgor. HEENT: He has slightly pale conjunctivae. Anicteric sclerae. No neck mass. No carotid bruits. No JVD. CHEST: No deformities. LUNGS: Decreased breath sounds. HEART: Normal sinus rhythm. Grade 2/6 systolic murmur. No gallops. No rubs. ABDOMEN: Globular, soft, and nontender. EXTREMITIES: Trace edema. MEDICATIONS: Medications of May 25, 2020, were reviewed. LABORATORY DATA: Laboratories of May 25, 2020; sodium 135, potassium 4.2, chloride 106, carbon dioxide 15, BUN 87, creatinine 4.94, GFR 11 mL/minute, glucose 108, calcium 8.7. White count 8.4, hemoglobin 8.2. ASSESSMENT AND PLAN: 1. Acute kidney injury on top of his chronic renal failure - he has a superimposed hemodynamically mediated dysfunction which is most related from his previous diuresis in the possibility of his underlying critical aortic stenosis. At the present time, I do not think there is an indication to do dialytic intervention. My bias is not to dialyze this patient due to his multiple comorbid problems. I even suspect he might not survive dialysis. 2. Congestive heart failure/aortic stenosis - supportive care. Attempting to do a lateral transfer with [facility] if this is possible. We are unable to transfer him to [place]. Overall prognosis remains poor with this patient. Continue supportive care. Job ID: [id number]
--- NOTE | 2020-05-25 11:28 | DIS ---
DATE OF ADMISSION: 05/19/2020 DATE OF DISCHARGE: 05/25/2020 FINAL DIAGNOSES: 1. Severe aortic stenosis. 2. Coronary artery disease. 3. Carotid arterial disease. 4. Renal failure. HISTORY OF PRESENT ILLNESS: Mr. Lizama is a 79-year-old man. He was brought to the hospital and found to have severe stenosis in the carotid artery. Stent implantation was done by Dr. Malik. The following night, the patient had severe pulmonary edema. He did require intubation. Echocardiogram showed that he still had a high gradient across the aortic valve. It is 64 mmHg with a mean gradient in the mid 30s. Valve area of 0.7. The patient improved where he could be extubated, but then worsened again and required re-intubation. He also had paroxysmal atrial fibrillation. The patient's baseline creatinine is a little over 2. He has had renal failure and creatinine is gone up to 4. The patient is not a candidate for reoperation with his valve. He does have stenosis in the circumflex artery about 70% with calcium and disease in the proximal right coronary artery. I did discuss with Dr. López his situation, Dr. López said that he might be a candidate for percutaneous balloon dilatation of the aortic valve as a way to get him out of failure and potentially ultimately stent his coronaries. I discussed with the patient's sons, they wished to proceed with this. Otherwise, looks like the patient is likely terminal. They understand he is high risk for any intervention, but without any further intervention this looks like it is likely a terminal situation. They wished to proceed as outlined above. Job ID: [id number]
[2020-05-25 12:27] LABS: SARS-CoV-2 MS2 Positive; SARS-CoV-2 N Gene Negative; SARS-CoV-2 S Gene Negative; SARS-CoV-2 orf1ab Negative
[2020-05-25 20:54] VITALS: TEMP 98.7
== END 2020-05-25 10:25 | disposition short-term general hospital (02) | DRG 34 ==
LOC: SURG A 05-19 05:41 → CCU 05-19 10:42
PROVIDERS: ADMIT Thoracic Surgery (Cardiothoracic Vascular Surgery); ATTEND Thoracic Surgery (Cardiothoracic Vascular Surgery)
PROC: 037L3DZ Dilation of Left Internal Carotid Artery with Intraluminal Device, Percutaneous Approach (ICD-10-PCS; principal; 2020-05-19)
PROC: 0BH17EZ Insertion of Endotracheal Airway into Trachea, Via Natural or Artificial Opening (ICD-10-PCS; 2020-05-20)
PROC: 5A1935Z Respiratory Ventilation, Less than 24 Consecutive Hours (ICD-10-PCS; 2020-05-20)
PROC: 5A09357 Assistance with Respiratory Ventilation, Less than 24 Consecutive Hours, Continuous Positive Airway Pressure (ICD-10-PCS; 2020-05-20)
PROC: 0BH18EZ Insertion of Endotracheal Airway into Trachea, Via Natural or Artificial Opening Endoscopic (ICD-10-PCS; 2020-05-23)
PROC: 5A1945Z Respiratory Ventilation, 24-96 Consecutive Hours (ICD-10-PCS; 2020-05-23)
DX: I65.22 Occlusion and stenosis of left carotid artery (principal); J96.01 Acute respiratory failure with hypoxia; I50.43 Acute on chronic combined systolic (congestive) and diastolic (congestive) heart failure; N17.9 Acute kidney failure, unspecified; I13.0 Hypertensive heart and chronic kidney disease with heart failure and stage 1 through stage 4 chronic kidney disease, or unspecified chronic kidney disease; Z11.59 Encounter for screening for other viral diseases; I35.0 Nonrheumatic aortic (valve) stenosis; I25.10 Atherosclerotic heart disease of native coronary artery without angina pectoris; I48.0 Paroxysmal atrial fibrillation; F41.9 Anxiety disorder, unspecified; E11.51 Type 2 diabetes mellitus with diabetic peripheral angiopathy without gangrene; E11.40 Type 2 diabetes mellitus with diabetic neuropathy, unspecified; F32.9 Major depressive disorder, single episode, unspecified; E89.0 Postprocedural hypothyroidism; N18.9 Chronic kidney disease, unspecified; E11.22 Type 2 diabetes mellitus with diabetic chronic kidney disease; G47.30 Sleep apnea, unspecified; I70.1 Atherosclerosis of renal artery; Z79.4 Long term (current) use of insulin; Z79.82 Long term (current) use of aspirin; Z86.14 Personal history of Methicillin resistant Staphylococcus aureus infection; Z79.899 Other long term (current) drug therapy; Z88.8 Allergy status to other drugs, medicaments and biological substances; Z79.02 Long term (current) use of antithrombotics/antiplatelets; Z95.1 Presence of aortocoronary bypass graft; Z85.828 Personal history of other malignant neoplasm of skin; Z79.890 Hormone replacement therapy
CPT/HCPCS: 36415; 36416; 71045; 76000; 80048; 81001; 82805; 84484; 85025; 85027; 87635; 92950; 93005; 93010; 93306; 94002; 94003; 94640; 94660; C1876; C1884; J0171; J0282; J0461; J0690; J0692; J1642; J1644; J1815; J1940; J2001; J2060; J2250; J2370; J2405; J2704; J2720; J3010; J3490; J7070; J7620; P9047; S0020; U0003

== ENCOUNTER 2020-07-29 10:58 | Day surgery (SDC) | payer MEDICARE, BC ==
[2020-07-27 14:05] VITALS: BMI 24.3
--- NOTE | 2020-07-28 15:03 | HP ---
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 His son has been staying with him for several weeks. The patient has a right IJ cuffed tunneled dialysis catheter placed several weeks ago at [facility] in [place]. The patient dialyzes at [facility] at [place] Saturday, , and Saturday. He is with his son Tono. The patient is followed by Dr. aWrren and Dr. Aponte. The patient has had bilateral carotid stenting, most recent right, postoperatively required emergent transfer to [place] where he underwent internal cardiac pacemaker percutaneous placement and TAVR for severe aortic regurgitation at [facility]. The patient was then transferred to [facility] and is now at home. He initially was ambulatory with a walker, then with a cane, but is becoming increasingly independent. I have been asked to see him regarding placement of a peritoneal dialysis catheter. I have talked to the patient and his son extensively regarding recommendations to consider a left arm fistula (right-handed), but the patient declines this at this time, we will proceed with laparoscopic PD catheter. Should he decide he wants a left arm fistula, this could be performed under anesthetic. The patient has not been seen by Dr. Aponte in some time. I have called Dr. Aponte who will see him today for preoperative cardiac assessment. The patient will undergo COVID testing and plan laparoscopic peritoneal dialysis catheter placement later this week. His medications will be reviewed and rearranged by Dr. Aponte. PAST SURGICAL HISTORY: Partial thyroidectomy, colonoscopy, Agent [place] exposure, coronary bypass grafting in 2000 after a myocardial infarction, followed by Dr. Aponte, bilateral carotid stents by Dr. Malik. Internal pacemaker in [place] in the last few weeks, TAVR procedure, aortic valve recently, deconditioning, now re-condition, now is at home, driving, independent, although his family is helping him convalesce. TOBACCO: None. ALCOHOL: None. MEDICATIONS: 1. Amiodarone 100 mg a day. 2. Ascorbic acid daily. 3. Aspirin daily. 4. Carvedilol 3.125 mg twice a day. 5. Ferrous sulfate daily. 6. Finasteride 5 mg a day. 7. Insulin with meals and long-acting morning and night. 8. Levothyroxine 125 mcg a day. 9. Lisinopril 20 mg a day. 10. Melatonin 3 mg at bedtime. 11. Nifedipine 30 mg once a day. 12. Plavix 75 mg a day. 13. Pravastatin 20 mg a day. 14. Protonix 40 mg a day. 15. Flomax 0.4 mg a day. Patient makes some urine, but not much. PAST MEDICAL HISTORY: End-stage renal disease, precipitated by recent illnesses. Agent [place] exposure; hypothyroidism, treated medically; hypertension; coronary artery disease, status post TAVR procedure; end-stage renal disease, on maintenance dialysis. REVIEW OF SYSTEMS: 10-point noncontributory, asymptomatic from cardiac standpoint, up to date on colonoscopies. FAMILY HISTORY: Father of stroke. Mother of coronary disease, aortic problems. Family history of arthritis. of suicide. PHYSICAL EXAMINATION: VITAL SIGNS: 175 pounds, 70 inches, 25 BMI. 134/56, 70, 97 degrees. HEAD, EYES, EARS, NOSE, AND THROAT: Unremarkable. CARDIAC: Regular rate and rhythm. No gallop. 1/2 ejection murmur. LUNGS: Clear to auscultation. No wheezing. ABDOMEN: Soft, nontender. No hernias evident. EXTREMITIES: No ankle edema. Hemodialysis catheter, right IJ cuffed tunneled access to right chest. ASSESSMENT AND PLAN: 1. Status post transcatheter aortic valve replacement procedure. On aspirin and Plavix, continue perioperatively. No need to stop. 2. History of bilateral carotid stenting. 3. End-stage renal disease, on maintenance dialysis Saturday, , and Saturday at [facility], followed by Dr. Warren. 4. Diabetes mellitus, insulin dependent, type 2. 5. Hypertension. 6. Internal coronary pacemaker. 7. Desires peritoneal dialysis. After cardiac evaluation by Dr. Aponte today, we will plan laparoscopic peritoneal dialysis catheter. He understands risks and benefits, and consents. I have recommended consideration of a nondominant left arm AV fistula, but the patient declines. Should he change his mind, we will plan that. The patient will require general anesthetic. Job ID: [id number]
[~2020-07-29 10:58] MED LIST: Lidocaine 1% PF 5 ML VIAL ONE; PHENYLEPHRINE-NS 100 MCG/ML 10 ML SYRINGE ONE; PROPOFOL 200 MG/20 ML VIAL ONE; Rocuronium Bromide 10 MG/ML (10ML VIAL) ONE
[2020-07-29] MEDS ORDERED: Lidocaine 1% w/Epinephrine 1:100K 20 ML VIAL ONE (11:43)
[2020-07-29] MEDS ORDERED: Heparin 10,000 UNITS/ 10 ML VIAL ONE (11:43)
[2020-07-29] MEDS ORDERED: Bupivacaine PF 0.5% 30 ML VIAL ONE (11:48)
[2020-07-29] MEDS ORDERED: Fentanyl 100 MCG/2 ML VIAL ONE (12:01)
[2020-07-29 12:24] LABS: #Eosinphils 0.2 thou/uL (0.0-0.7); #Lymphocytes 1.1 thou/uL (1.20-3.40); #Monocytes 0.9 thou/uL (0.11-0.59); #Neutrophils 5.3 thou/uL (1.40-6.50); %Basophils 0.6 % (0.0-1.0); %Eosinophils 2.7 % (0.0-10.0); %Lymphocytes 14.1 % (21.0-51.0); %Neutrophils 70.6 % (42.0-75.0); Hemoglobin 10.5 g/dL (14.0-18.0); Mean Corpuscular HGB CONC 35.9 g/dL (32.0-36.0); Mean Corpuscular Hemoglobin 35.9 pg (27.0-31.0); Mean Platelet Volume 9.4 fL (7.4-10.4); Platelet Count 139 thou/uL (130-400); RBC Distribution Width 13.5 % (11.5-14.5); Red Blood Cell (RBC) Count 2.93 mill/uL (4.70-6.10); White Blood Cell (WBC) Count 7.5 thou/uL (4.8-10.8)
[2020-07-29] MEDS ORDERED: SUGAMMADEX SODIUM 200 MG/2 ML VIAL ONE (12:36)
[2020-07-29 13:29] LABS: Anion Gap 15 mmol/L (10-20); BUN (Urea Nitrogen) 28 mg/dL (8.4-25.7); Calc. Creatinine Clearance 23 mL/min (70-130); Calcium 8.7 mg/dL (7.8-10.44); Carbon Dioxide 29 mmol/L (23-31); Chloride 97 mmol/L (98-107); Estimated GFR-MDRD 22; Glucose 265 mg/dL (83-110); Potassium 3.1 mmol/L (3.5-5.1); Sodium 138 mmol/L (136-145)
[2020-07-29] MEDS ORDERED: Heparin 1,000 UNITS/ML VIAL ONE (13:59)
--- NOTE | 2020-07-29 15:36 | OP ---
DATE OF PROCEDURE: 07/29/2020 PREOPERATIVE DIAGNOSES: End-stage renal disease, desires peritoneal dialysis. Does not want a primary fistula. POSTOPERATIVE DIAGNOSES: End-stage renal disease, desires peritoneal dialysis. Does not want a primary fistula. PROCEDURE PERFORMED: Laparoscopic peritoneal dialysis catheter placement. Double-cuffed pigtail. Omentopexy not necessary. ANESTHESIA: General, local 0.5% Marcaine 30 mL mixed with 1% Xylocaine with epinephrine 20 mL. DESCRIPTION OF PROCEDURE: The patient was taken to the operating room, where under general anesthesia, abdomen was prepared with ChloraPrep, draped in routine fashion. Local anesthetic was infiltrated in the skin and subcutaneous tissue about the operative sites. Bilateral far lateral stab was incision made. Pneumoperitoneum to 15 mmHg was obtained with a Veress needle, replaced with a 5 port. Contralateral 5 port placed under laparoscopic visualization. Stab incision was made in the left lower quadrant at the planned exit site and superior to this, left paraumbilical counter incision was made, 8 mm port directed caudally in the subcutaneous tissue and the rectus sheath, visualized laparoscopically, penetrating the peritoneum dependently toward the pelvis, inserting the double cuffed pigtail peritoneal dialysis catheter, internal cuff in the rectus sheath, removing the port. Using the [place] dissector placed through the planned exit site into the counter incision, the catheter was grasped, brought out at the exit site, placing the external cuff in the skin exit sites. The omentum was inspected and it was very scant small and would not reach into the pelvis. Omentopexy was not necessary. Generalized abdominal cavity view unremarkable. Irrigant and pneumoperitoneum evacuated. All instruments were removed and all skin incisions were approximated with subdermal 4-0 Monocryl and Creighton glue applied. Sterile dressings applied. The patient tolerated the procedure well. Job ID: [id number]
== END 2020-07-29 14:15 | disposition home or self-care (01) ==
LOC: SDC 10:58
PROVIDERS: ATTEND Specialist
PROC: 0WHG43Z Insertion of Infusion Device into Peritoneal Cavity, Percutaneous Endoscopic Approach (ICD-10-PCS; principal; 2020-07-29)
DX: I12.0 Hypertensive chronic kidney disease with stage 5 chronic kidney disease or end stage renal disease (principal); E11.22 Type 2 diabetes mellitus with diabetic chronic kidney disease; N18.6 End stage renal disease; E89.0 Postprocedural hypothyroidism; I25.2 Old myocardial infarction; I25.10 Atherosclerotic heart disease of native coronary artery without angina pectoris; E78.5 Hyperlipidemia, unspecified; Z77.29 Contact with and (suspected) exposure to other hazardous substances; Z79.02 Long term (current) use of antithrombotics/antiplatelets; Z79.4 Long term (current) use of insulin; Z79.82 Long term (current) use of aspirin; Z79.899 Other long term (current) drug therapy; Z88.5 Allergy status to narcotic agent; Z95.1 Presence of aortocoronary bypass graft; Z95.2 Presence of prosthetic heart valve; Z95.820 Peripheral vascular angioplasty status with implants and grafts; Z99.2 Dependence on renal dialysis
CPT/HCPCS: 80048; 85025; J0690; J1644; J2704; J3010; S0020

== ENCOUNTER 2020-08-11 20:50 | Observation (INO) | payer MEDICARE, BC, OTHER ==
[~2020-08-11 20:50] MED LIST changes: +Iopamidol-370 76% 500 ML 1 ML ONE; -Lidocaine 1% PF 5 ML VIAL ONE; -PHENYLEPHRINE-NS 100 MCG/ML 10 ML SYRINGE ONE; -PROPOFOL 200 MG/20 ML VIAL ONE; -Rocuronium Bromide 10 MG/ML (10ML VIAL) ONE
[2020-08-11] MEDS ORDERED: Cefepime 2 GM VIAL ONE (21:18)
[2020-08-11] MEDS ORDERED: Vancomycin 1 GM/200 ML BAG ONE (21:18)
[2020-08-11] MEDS ORDERED: Morphine 4 MG/ML VIAL ONE (21:18)
[2020-08-11] MEDS ORDERED: Acetaminophen 500 MG TAB ONE (21:18)
[2020-08-11] MEDS ORDERED: Ondansetron PF 4 MG/2 ML Vial ONE ×2 (21:18→21:38)
[2020-08-11 21:38] LABS: Hemoglobin 12.2 g/dL (14.0-18.0); Mean Corpuscular HGB CONC 33.4 g/dL (32.0-36.0); Mean Corpuscular Hemoglobin 33.3 pg (27.0-31.0); Mean Corpuscular Volume 99.9 fL (78.0-98.0); Mean Platelet Volume 8.7 fL (7.4-10.4); Platelet Count 146 thou/uL (130-400); RBC Distribution Width 14.3 % (11.5-14.5); Red Blood Cell (RBC) Count 3.66 mill/uL (4.70-6.10); White Blood Cell (WBC) Count 13.5 thou/uL (4.8-10.8)
--- NOTE | 2020-08-11 21:39 | RAD ---
PORTABLE CHEST ONE VIEW: 08/11/20 at 9:22 p.m. HISTORY: Left upper quadrant pain, nausea. COMPARISON: 07/26/20 There is continued elevation of the left hemidiaphragm. Right sided central venous catheter. Changes of median sternotomy again seen. The heart size is normal. No lobar consolidation, pneumothoraces, or pleural effusions are seen. IMPRESSION: No acute process. POS: MZA
[2020-08-11 21:52] LABS: ALT (SGPT) 10 U/L (8-55); AST (SGOT) 17 U/L (5-34); Albumin 4.1 g/dL (3.4-4.8); Alkaline Phosphatase 64 U/L (40-110); Anion Gap 14 mmol/L (10-20); BUN (Urea Nitrogen) 23 mg/dL (8.4-25.7); Bilirubin, Total 0.5 mg/dL (0.2-1.2); Calc. Creatinine Clearance 0 mL/min (70-130); Calcium 9.5 mg/dL (7.8-10.44); Carbon Dioxide 28 mmol/L (23-31); Chloride 97 mmol/L (98-107); Estimated GFR-MDRD 31; Globulin 3.4 g/dL (2.4-3.5); Glucose 138 mg/dL (83-110); Lipase 39 U/L (8-78); Potassium 3.4 mmol/L (3.5-5.1); Protein, Total 7.5 g/dL (5.8-8.1); Sodium 136 mmol/L (136-145)
[2020-08-11 21:57] LABS: Band 23 % (5-11); Lymphocytes 4 % (21-51); MDiff Complete? YES; Monocytes 6 % (0-10); Neutrophil 67 % (42-75); Platelet Morphology Comment Appears Adequate
--- NOTE | 2020-08-11 22:46 | CT ---
CT of abdomen and pelvis: 08/11/2020 HISTORY: Nausea, left lower quadrant/left upper quadrant pain, peritoneal dialysis TECHNIQUE: Axial CT imaging at 5 mm intervals from lung bases through pubic symphysis with IV contras t. Coronal and sagittal reformatted imaging obtained. FINDINGS: Stent material is seen within the region of the aortic valve. Calcified nodes are seen in t he right hilum and the subcarinal region. The visualized lung bases demonstrate no acute findings. Coronary arterial calcification and midline sternotomy wires are present. There is a cyst within the right lobe of the liver measuring 2.7 cm. Splenic granulomata are noted. T he gallbladder appears grossly unremarkable. The pancreas is atrophic and there is prominence of the pancreatic duct. There is a questionable hypodense lesion in the region of the uncinate process o f the pancreas on axial image 40 measuring 1.6 cm. This alternatively could represent focal ductal dilation or mildly enlarged lymph node. Adrenal glands and kidneys demonstrate no acute findings. There is a small posterior mid pole left re nal hypodensity measuring 8-9 mm, too small to characterize. Small volume free fluid noted in the pelvis. Peritoneal dialysis catheter curls within the left lower quadrant. Limited assessment of the bowel demonstrates questionable mild wall thickening and inflammatory massey e adjacent to and involving the mid descending colon. The peritoneal dialysis catheter tubing is in this region and could account in part for this finding. There are a few foci of free intraperitoneal air within the left upper quadrant which are of uncertain significance as a peritoneal dialysis catheter could account for these findings. Clinical correlation is essential. There is no evidence fo r bowel obstruction. There is scattered atherosclerotic calcification of the abdominal aorta and its branches. Review of the osseous structures demonstrates multilevel degenerative change within the lower lumbar spine. There is fusion at the L4-5 intervertebral disc space with prominent associated degenerative change IMPRESSION: Tiny foci of free intraperitoneal air in the left upper quadrant with small volume fluid within the pelvis. Findings are likely the result of peritoneal dialysis. Clinical correlation is essential. Questionable mild wall thickening of the mid descending colon may signify mild colitis in the proper clinical setting. Questionable small lesion associated with the uncinate process of the pancreas for which a follow-up MRI or CT with and without contrast using a pancreatic mass protocol advised. Numerous additional incidental findings as detailed above. CODE T
[2020-08-11 22:50] LABS: CKMB 1.5 ng/mL (0-6.6)
[2020-08-12] MEDS ORDERED: Morphine 4 MG/ML VIAL SLOW IVP PRN (00:53)
[2020-08-12 01:26] VITALS: BMI 24.2
[2020-08-12] MEDS ORDERED: Promethazine HCl 12.5 MG in Sodium Chloride 0.9% 50 ML IVPB PRN (01:28)
[2020-08-12] MEDS ORDERED: Ondansetron PF 4 MG/2 ML Vial IVP PRN (01:28)
[2020-08-12] MEDS ORDERED: Acetaminophen 325 MG TAB PO PRN (01:28)
[2020-08-12] MEDS ORDERED: Labetalol HCl 100 MG/20 ML VIAL SLOW IVP PRN (01:28)
[2020-08-12] MEDS ORDERED: hydrALAZINE 20 MG/ML VIAL SLOW IVP PRN (01:28)
[2020-08-12] MEDS ORDERED: cloNIDine 0.1 MG TAB PO PRN (01:28)
[2020-08-12] MEDS ORDERED: Electrolyte Replacement Protoc 1 EACH EACH FS SCH (01:30)
--- NOTE | 2020-08-12 01:35 | PDOC.HHP ---
Hospitalist HPI - History of Present Illness Abdominal pain History of Present Illness: Patient is a 79 year old male with PMH distant narcotic abuse (not on them anymore), aortic valve replacement, pacemaker, ESRD on HD w/ Dr Kelvin TORRES who presents to ED for abdominal pain x 4 days. Patient reports developing a LUQ abdominal pain on Saturday, nausea, discomfort. Today, the patient presented to ED when pain continued to worsen, here he was noted to have a fever to 101 and tachycardia w/ rate 107. He denies SOB/chest pain, no melena or blood by mouth or anus. He had PD cath placed a few weeks ago by Dr Lindsay in preparation for PD, currently he is still on HD with Dr Kelvin TORRES through a R sided tunneled c atheter, completed session with no issues. In ED here, WBC 13, tni mildly elevated, CT A/P performed and revealed small foci of intraperitoneal air in LUQ, wall thickening of descending colon, small pancreas lesion for which dedicated imaging recommended. Patient admitted for further workup and care. Patient has notable medical history of severe aortic stenosis and acute heart failure after carotid artery stent in April of this year requiring urgent transfer to [facility], where patient had aortic valve replacement and pacemaker placement. He developed renal failure after this episode, which is why he had PD/HD initiation. He has a distant history of narcotic abuse and dependance but has since quit and requests no narcotic medications unless pain becomes very severe. Hospitalist ROS - Review of Systems Constitutional: reports: fever, chills, weakness. denies: sweats, malaise, other Eyes: denies: pain, vision change, conjunctivae inflammation, eyelid inflammation, redness, other ENT: denies: ear pain, ear discharge, nose pain, nose discharge, nose congestion, mouth pain, mouth swelling, throat pain, throat swelling, other Respiratory: denies: cough, dry, shortness of breath, hemoptysis, SOB with excertion, pleuritic pain, sputum, wheezing, other Cardiovascular: denies: chest pain, palpitations, orthopnea, paroxysmal noc. dyspnea, edema, light headedness, other Gastrointestinal: reports: nausea, abdominal pain. denies: vomiting, diarrhea, constipation, melena, hematochezia, other Genitourinary: denies: dysuria, frequency, incontinence, hematuria, retention, other Musculoskeletal: denies: neck pain, shoulder pain, arm pain, back pain, hand pain, leg pain, foot pain, other Skin: denies: rash, lesions, jeni, bruising, other Neurological: denies: weakness, numbness, incoordination, change in speech, confusion, seizures, other All other systems reviewed; all pertinent +/- noted in HPI/Subj - Medication Medications: aspirin oral [facility] Aug 11, 2020 21:32 MICHAEL Stovall Miranda TABLET : Strength - 81 mg : ORAL Patient Dose: 1 tab(s) Oral once a day. clopidogrel [facility] Aug 11, 2020 21:32 MICHAEL Stovall Miranda tablet : Strength - 75 mg : ORAL Patient Dose: 1 tab(s) once a day. HumaLOG U-100 Insulin [facility] Aug 11, 2020 21:32 MICHAEL Stovall Miranda solution : Strength - 100 unit/mL : SUBCUTANEOUS Patient Dose: 10 units Subcutaneous.Last Taken: scale. levothyroxine oral [facility] Aug 11, 2020 21:32 MICHAEL Stovall Miranda tablet : Strength - 75 mcg : ORAL Patient Dose: 1225 mcg Oral once a day. NIFEdipine [facility] Aug 11, 2020 21:32 MICHAEL Stovall Miranda tablet extended release : Strength - 90 mg : ORAL Patient Dose: 30 mg once a day. pravastatin [facility] Aug 11, 2020 21:32 MICHAEL Stovall Miranda tablet : Strength - 20 mg : ORAL Patient Dose: 1 tab(s) Oral once a day. tamsulosin [facility] Aug 11, 2020 21:32 MICHAEL Stovall Miranda capsule : Strength - 0.4 mg : ORAL Patient Dose: ONCE. Lantus U-100 Insulin [facility] Aug 11, 2020 21:33 MICHAEL Stovall Miranda solution : Strength - 100 unit/mL : SUBCUTANEOUS Patient Dose: Unknown. Hospitalist History - Past Medical History Other Medical History: T2DM, aortic stenosis, pacemaker, carotid stenosis, ESRD, bilateral foot drop after distant surgery, history of nartotic addiction, HTN - Past Surgical History Other Surgical History: partial thyroidectomy 1975, anal fissure 1989, trigger finger sx x6-8, lumbar laminectomy 2000, debridements of wound and MRSA infection [id number], coronary artery bypass x3, anal mass removed 2006, colonoscopy 2010, basal cell carcinoma left helix 2013. angiogram perfromed at [facility] 2014 ...DECEMBER 06, 2015 CAROTID SURGERY. aortic valve replacement,. - Family History Family History: reports: no pertinent history - Social History Alcohol: reports: None Drugs: reports: none (narcotic recovery) - Exam General Appearance: NAD, awake alert Eye: PERRL, anicteric sclera ENT: normocephalic atraumatic, no oropharyngeal lesions, moist mucosa Neck: supple, symmetric, no JVD, no thyromegaly, no lymphadenopathy, no carotid bruit Heart: RRR, no murmur, no gallops, no rubs, normal peripheral pulses Respiratory: CTAB, no wheezes, no rales, no ronchi, normal chest expansion, no tachypnea, normal percussion Gastrointestinal: soft, non-distended, normal bowel sounds, no palpable masses, no hepatomegaly, no splenomegaly, no bruit Gastrointestinal - other findings: LUQ tenderness, no guarding or rebound Extremities: no cyanosis, no clubbing, no edema Skin: normal turgor, no lesions, no rashes Neurological: cranial nerve grossly intact, normal sensation to touch, no weakness, no focal deficits, no new deficit Musculoskeletal: normal tone, normal strength, no muscle wasting Psychiatric: normal affect, normal behavior, A&O x 3 Hospitalist Results - Labs Result Diagrams: 08/11/20 21:19 08/11/20 21:19 Lab results: WBC 13.5 thou/uL (4.8-10.8) H 08/11/20 21:19 Hgb 12.2 g/dL (14.0-18.0) L 08/11/20 21:19 Hct 36.6 % (42.0-52.0) L 08/11/20 21:19 MCV 99.9 fL (78.0-98.0) H 08/11/20 21:19 Plt Count 146 thou/uL (130-400) 08/11/20 21:19 Band Neuts % (Manual) 23 % (5-11) H 08/11/20 21:19 Sodium 136 mmol/L (136-145) 08/11/20 21:19 Potassium 3.4 mmol/L (3.5-5.1) L 08/11/20 21:19 Chloride 97 mmol/L (98-107) L 08/11/20 21:19 Carbon Dioxide 28 mmol/L (23-31) 08/11/20 21:19 BUN 23 mg/dL (8.4-25.7) 08/11/20 21:19 Creatinine 2.09 mg/dL (0.7-1.3) H 08/11/20 21:19 Glucose 138 mg/dL (83-110) H 08/11/20 21:19 Lactic Acid 1.4 mmol/L (0.5-2.2) 08/11/20 21:19 Calcium 9.5 mg/dL (7.8-10.44) 08/11/20 21:19 Total Bilirubin 0.5 mg/dL (0.2-1.2) 08/11/20 21:19 AST 17 U/L (5-34) 08/11/20 21:19 ALT 10 U/L (8-55) 08/11/20 21:19 Alkaline Phosphatase 64 U/L (40-110) 08/11/20 21:19 CK-MB (CK-2) 1.5 ng/mL (0-6.6) 08/11/20 21:19 Troponin I 0.045 ng/mL (< 0.028) H 08/11/20 21:19 Serum Total Protein 7.5 g/dL (5.8-8.1) 08/11/20 21:19 Albumin 4.1 g/dL (3.4-4.8) 08/11/20 21:19 Lipase 39 U/L (8-78) 08/11/20 21:19 Additional comment: VITAL SIGNS SatAug 12, 2020 00:11 MICHAEL Stovall Miranda BP: 146/62 Pulse: 94 Resp: 16 Temp: 100.8 (Tympanic) O2 sat: 98 on (Room Air) Time: 08/12/2020 00:11. ED documents, labs, imaging reports reviewed Hospitalist H&P A/P - Plan Plan: Patient is a 79 year old male with PMH distant narcotic abuse (not on them anymore), aortic valve replacement, pacemaker, ESRD on HD w/ Dr Kelvin TORRES who presents to ED for abdominal pain x 4 days. # abdominal pain - CT A/P performed and revealed small foci of intraperitoneal air in LUQ, wall thickening of descending colon, small pancreas lesion for which dedicated imaging recommended. Patient admitted for further workup and care. # colitis # sepsis secondary to colitis - admit to floor - consult Dr Lindsay to evaluate for PD catheter to ensure no manipulation needed - start zosyn - follow cultures - tylenol PRN for pain, avoid narcotic medications - hold ASA/plavix until patient cleared from surgical needs # ESRD on TTS HD - consult Dr Warren # HTN - PRN medications available # T2DM - SSI # history of AVR, pacemaker, CAD, CABG, carotid stenosis Patient has notable medical history of severe aortic stenosis and acute heart failure after carotid artery stent in April of this year requiring urgent transfer to [facility], where patient had aortic valve replacement and pacemaker placement. He developed renal failure after this episode, which is why he had PD/HD initiation. # history of narcotic abuse - patient has a distant history of narcotic abuse and dependance but has since quit and requests no narcotic medications unless pain becomes very severe # hypokalemia - replete PRN # DVT/GI ppx
[2020-08-12] MEDS ORDERED: Dextrose 5% in Water 1,000 ML IV PRN (02:02)
[2020-08-12] MEDS ORDERED: Dextrose 50% Abboject 50 ML SYRINGE SLOW IVP PRN (02:02)
[2020-08-12] MEDS: Piperacillin/Tazobactam 2.25 GM in Sodium Chloride 0.9% 100 ML IVPB SCH ×3 (02:17→17:26)
[2020-08-12] MEDS: Levothyroxine Sodium 125 MCG TAB PO SCH (07:02)
[2020-08-12 07:20] LABS: #Basophils 0.1 thou/uL (0.0-0.2); #Eosinphils 0.1 thou/uL (0.0-0.7); #Neutrophils 10.4 thou/uL (1.40-6.50); %Basophils 0.4 % (0.0-1.0); %Eosinophils 0.5 % (0.0-10.0); %Lymphocytes 7.7 % (21.0-51.0); %Monocytes 7.9 % (0.0-10.0); %Neutrophils 83.5 % (42.0-75.0); Hemoglobin 10.5 g/dL (14.0-18.0); Mean Corpuscular HGB CONC 32.1 g/dL (32.0-36.0); Mean Corpuscular Hemoglobin 32.8 pg (27.0-31.0); Mean Platelet Volume 8.7 fL (7.4-10.4); Platelet Count 132 thou/uL (130-400); RBC Distribution Width 14.1 % (11.5-14.5); Red Blood Cell (RBC) Count 3.21 mill/uL (4.70-6.10); White Blood Cell (WBC) Count 12.4 thou/uL (4.8-10.8)
[2020-08-12 07:39] LABS: Anion Gap 14 mmol/L (10-20); BUN (Urea Nitrogen) 31 mg/dL (8.4-25.7); Calc. Creatinine Clearance 26 mL/min (70-130); Calcium 8.5 mg/dL (7.8-10.44); Carbon Dioxide 27 mmol/L (23-31); Chloride 98 mmol/L (98-107); Estimated GFR-MDRD 25; Glucose 205 mg/dL (83-110); Potassium 3.9 mmol/L (3.5-5.1); Sodium 135 mmol/L (136-145)
[2020-08-12] MEDS: Heparin 5,000 UNITS/ML VIAL SC SCH ×2 (08:13→21:06)
[2020-08-12] MEDS: Insulin Glargine 15 UNITS in Pre-Filled Syringe 1 EACH SC SCH (08:13)
[2020-08-12] MEDS ORDERED: Pravastatin Sodium 40 MG TAB PO SCH (09:00)
[2020-08-12] MEDS ORDERED: Non-Formulary Item 1 EACH (Insulin Glargine,Hum.Rec.Anlog [Lantus Solostar] 100 UNIT/ML P SQ SCH (09:00)
--- NOTE | 2020-08-12 09:32 | CON ---
DATE OF CONSULTATION: 08/12/2020 HISTORY OF PRESENT ILLNESS: Mr. Lizama is a 79-year-old white male with known history of ESRD - currently on maintenance hemodialysis and was admitted for abdominal pain. CT scan of the abdomen was done and it showed small focus of intraperitoneal air - most likely related to his peritoneal dialysis, wall thickening descending colon, and a small pancreatic lesion, MRI has been recommended. We are being consulted for management of his ESRD. He did receive hemodialysis yesterday. He is planning to transition to peritoneal dialysis in the next few weeks. PD training is being done. In addition, patency for the peritoneal dialysis catheter is being maintained by the PD nurse. No mention of any cloudy solution noted from the PD fluid. REVIEW OF SYSTEMS: Positive for abdominal pain started 4 days ago. No nausea. No vomiting. Decreased appetite. Decreased energy level. Claims to have a low- grade fever. No hematochezia. No melena. No hematemesis. No dysuria. No productive cough. No syncopal episode. No chest pain or shortness of breath. MEDICATIONS: Currently on; 1. DuoNeb q.2 p.r.n. 2. Cordarone 100 mg p.o. q.a.m. 3. Catapres 0.1 mg p.o. b.i.d. 4. Pepcid 20 mg daily. 5. Heparin 5000 units subcu t.i.d. 6. Insulin glargine 15 units subcu q.a.m. 7. Humalog sliding scale. 8. Levothyroxine 125 mcg p.o. daily. 9. Zofran 4 mg IV q.6 p.r.n. 10. Protonix 40 mg q.a.m. 11. Zosyn 2.25 g IV q.8 hours. 12. Simvastatin 10 mg tablet at bedtime. 13. Flomax 0.4 mg daily. PAST MEDICAL HISTORY: 1. 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 2. Type 2 diabetes mellitus. 3. History of aortic stenosis. 4. Longstanding hypertension. 5. Peripheral vascular disease. 6. Coronary artery disease. 7. History of renal artery stenosis - right. 8. Status post MRSA infection of the back bone, status post paraplegia secondary to his chronic low back surgery. 9. Peripheral vascular disease. PAST SURGICAL HISTORY: Status post aortic valve replacement/TAVR, status post cardiac cath, status post CABG, status post left carotid artery stent placement, status post partial thyroidectomy, status post anal fissure repair, status post PD catheter placement, status post cuffed hemodialysis catheter placement, status post right carotid endarterectomy, status post excision of the basal cell carcinoma of left ear. 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 No smoking. Alcohol, rarely. Status post blood transfusion. 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 FAMILY HISTORY: No family history of ESRD. ALLERGIES: NONE. TRAUMA: Status post bilateral forearm fracture. IMMUNIZATIONS: Up-to-date. HOSPITALIZATIONS: Please see past medical history. PHYSICAL EXAMINATION: VITAL SIGNS: Blood pressure is noted at 149/68, heart rate 69, respiratory rate 14, temperature 97.8, and O2 saturation 99%. GENERAL: He is awake, alert, comfortable, not in distress. SKIN: Adequate turgor. HEENT: Pinkish conjunctivae. Anicteric sclerae. Decreased hearing. NECK: No neck mass. No carotid bruits. No JVD. LUNGS: Clear breath sounds. No wheezing. No crackles. HEART: Normal sinus rhythm. Grade 2/6 systolic murmur. No gallops. No rubs. ABDOMEN: Globular, soft, and nontender. No masses. Positive for PD catheter. EXTREMITIES: No edema. No deformities. NEUROLOGICAL: Moving all extremities. Oriented to 3 spheres. No tremors. No asterixis. No ataxia. LABORATORY DATA: Laboratories of August 12, 2020; white count 12.4, hemoglobin 10.5. Sodium 135, potassium 3.9, chloride 98, carbon dioxide 27, BUN 31, creatinine 2.54, glucose 205, and calcium 8.5. IMAGING: On August 11, 2020; chest x-ray, no acute process. CT scan of the abdomen and pelvis showed free intraperitoneal air. Minimal. ? of a small lesion in the uncinate process of the pancreas. Recommendation, follow up with MRI or CT scan with and without contrast. Slightly thickening of the mid descending colon. ASSESSMENT AND PLAN: 1. Abdominal pain, unclear etiology, although colitis is a possibility. He is currently on empiric IV antibiotics. 2. End-stage renal disease, stable. We will continue current Saturday, , and Saturday hemodialysis regimen. Fluid removal as tolerated by the patient. 3. Borderline anemia. We will simply observe this. We will hold off Epogen today. Overall, prognosis remains guarded. Recheck CBC and basic metabolic panel in gianna Job ID: [id number] [facility]
[2020-08-12] MEDS ORDERED: Iopamidol-370 76% 500 ML 1 ML ONE (10:04)
[2020-08-12 12:47] LABS: SARS-CoV-2 MS2 Positive; SARS-CoV-2 N Gene Negative; SARS-CoV-2 S Gene Negative; SARS-CoV-2 by NAA Not Detected (NotDetected); SARS-CoV-2 orf1ab Negative
--- NOTE | 2020-08-12 14:36 | PDOC.EVN ---
Event Note - Event Note Event Note: Case was reviewed. Patient was seen and examined. He does not have significant tenderness in the left upper abdomen area. His peritoneal dialysis catheter site looks good. Differential includes complication of the peritoneal dialysis catheter, colitis, potential finding of the mass on imaging in the pancreas. He is on antibiotics for colitis. Surgery consult is pending. Will likely need to get a CT of the pancreas with mass protocol. Do not believe there is any reason at this point to avoid giving contrast. Will double check with nephrology. Patient was very clear he did not want to do anything that would incapacitate him for any length of time.
[2020-08-12] MEDS: Tamsulosin HCl 0.4 MG CAP PO SCH (15:40)
[2020-08-12] MEDS: Famotidine 20 MG TAB PO SCH (15:40)
[2020-08-12] MEDS: Amiodarone 200 MG TAB PO SCH (15:40)
[2020-08-12] MEDS: Polyethylene Glycol 3350 17 GM Packet PO SCH (15:40)
--- NOTE | 2020-08-12 17:59 | CT ---
CT Abdomen W WO Con History: Pancreatic mass Comparison: Abdomen pelvis CT prior day Findings: Scarring lung bases, mild. Calcified granulomas in the lung bases. Numerous calcified right hilar and right paraesophageal lymph nodes. The pancreas is small with numerous hypodensities throughout the pancreatic body and tail. Ill-define d hypodensity within the pancreatic tail is connection with the main pancreatic duct measures 2 cm in size. Moderate pancreatic ductal dilatation throughout the entire pancreas. There is also an ill-d efined mass of the pancreatic head measuring up to 1.8 cm which appears to be contained within the parenchyma. 2.3 cm ill-defined hypodensity is seen within the uncinate process without a well-defined mass Numerous splenic granulomas. No abnormal hepatic mass. Small monica hepatis lymph nodes. Remainder the findings of the abdomen are similar to prior day's exam. Impression: 1. Two separate masses, one of the pancreatic tail and one of the pancreatic head/uncinate process. T hese masses are multicystic and do have internal enhancement concerning for cystic neoplasm. Masses are contained within the pancreatic parenchyma with main pancreatic duct communication and dilatation . Endoscopic ultrasound with fine-needle aspiration recommended along with oncologic surgical consultation. 2. Ill-defined hypodensity which is also multicystic within the uncinate process may reflect side beck ts versus a third cystic mass. 3. Small pancreas which can be sequela of chronic pancreatitis. 4. Small mildly reactive monica hepatis lymph nodes. 5. Numerous hypodensities of the liver, the larger 1's measure fluid attenuation and indicative of cy sts, and the smaller 1's are too small to characterize, sub-5 mm, although statistically likely also cysts/biliary hamartomas.
[2020-08-12] MEDS ORDERED: Simvastatin 10 MG TAB PO SCH (21:00)
[2020-08-12] MEDS: HumaLOG 300 UNITS/3 ML VIAL SC PRN (21:15)
--- NOTE | 2020-08-12 22:26 | CON ---
DATE OF CONSULTATION: REASON FOR CONSULT: Abdominal pain. HISTORY OF PRESENT ILLNESS: Mr. Lizama is a 79-year-old male with multiple medical issues, who had a laparoscopic peritoneal dialysis catheter placed by Dr. Lindsay 3 weeks ago. Today, he states that he was doing fine from this and just had shoulder pain for about a day after surgery, which then resolved. However, on Saturday, he started having pain in his left flank area, which down toward the pelvis, so he decided to come into the hospital last night when he had a low-grade fever of 99.7. He has not had any nausea, vomiting, or diarrhea. He denies any bloating. He describes the pain as being more of a discomfort, but persistent. No exacerbating or alleviating factors. The nurses have been flushing his peritoneal dialysis catheter, and he has been going through peritoneal dialysis training, but he has not yet transitioned to peritoneal dialysis. He is still undergoing hemodialysis and is tolerating that well. There has been no report of cloudiness from the peritoneal dialysis fluid. The patient does not have generalized abdominal pain. PAST MEDICAL HISTORY: Extensive. He has coronary artery disease, status post bypass by Dr. 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 He has aortic stenosis, status post transaortic valve replacement on the emergency basis after going into acute congestive heart failure, flash pulmonary edema during his left CEA about a year ago. He has a history of a ruptured lumbar disk, status post emergency surgery complicated by MRSA infection and paraplegia with eventual recovery of lower extremity function, but he still has residual footdrop for which he wears leg braces. He has diabetes which he states was well controlled with average blood sugar around 114, but he has hypothyroidism status post a thyroid lobectomy in the 1970s, and he has a pacemaker. PAST SURGICAL HISTORY: Thyroidectomy, coronary artery bypass grafting, bilateral carotid surgery, pacemaker, transaortic valve replacement, and lumbar diskectomy. SOCIAL HISTORY: The patient does not have history of tobacco, alcohol, or drug use. OUTPATIENT MEDICATIONS: Include: 1. Amiodarone. 2. Vitamin C. 3. Aspirin. 4. Carvedilol. 5. Iron. 6. Finasteride. 7. Insulin. 8. Synthroid. 9. Lisinopril. 10. Melatonin. 11. Nifedipine. 12. Plavix. 13. Pravastatin. 14. Protonix. 15. Flomax. REVIEW OF SYSTEMS: Ten-system review of systems is negative except per HPI. FAMILY HISTORY: Noncontributory. PHYSICAL EXAMINATION: VITAL SIGNS: The patient has been afebrile through this hospital stay. Heart rate 63, respirations 16, oxygen saturation is 96% saturated on room air, and blood pressure 186/80. GENERAL: Reveals a healthy-appearing gentleman in no acute distress. He was not flushed or toxic in appearance. He was not jaundiced or icteric. HEENT: Unremarkable. Pupils are equal, and extraocular movements are intact. NECK: Supple without lymphadenopathy or thyroid nodules. HEART: Regular in its rate and rhythm with a soft systolic murmur audible over the entire precordium. No rubs or gallops were appreciated. LUNGS: Clear to auscultation bilaterally. ABDOMEN: Soft and nondistended. He has minimal tenderness over the left lateral abdomen without rigidity, rebound, or guarding. His PD catheter exit site is clean without redness or tenderness. EXTREMITIES: Warm, well perfused without edema. NEUROLOGIC: No focal deficits except for the bilateral footdrop and some diffuse mild weakness. PSYCHIATRIC: Alert, oriented, and appropriate. LABORATORY DATA: White count was slightly elevated at 12.4 with a left shift of 83%. Hematocrit is 32, platelets are 132. Electrolytes are unremarkable. BUN and creatinine were elevated at 31 and 2.54. Glucoses ranged from 129 to 219. He is COVID negative. CT images were reviewed, and I agree with the written report. He recently had a followup pancreas protocol CT, which showed 3 possible areas of cystic abnormalities in the pancreas, worrisome for cystic neoplasm. He has thickening of the descending colon, which is mild. I do not appreciate any diverticula in this area. His PD catheter is in place, but the end appears to have migrated from the pelvis into the left pericolic gutter. There is free fluid in the pelvis and a few spots of intraperitoneal free air, which were almost certainly related to his peritoneal dialysis catheter. ASSESSMENT: Abdominal pain and low-grade fever with leukocytosis and left lateral abdominal tenderness. This is most likely a mild case of colitis as supported by thickening of the descending colon on CT scan. He is on Zosyn, which should be adequate coverage for this, and I would recommend maintaining him on this until his symptoms resolve and his white count improves and at that point, he can likely be transitioned to oral antibiotics to complete a 2-week course. Regarding the pancreas, the patient states that his hospitalist told him transfer to a higher level of care is being considered for endoscopic ultrasound and biopsy. Certainly, this is not something that can be accomplished at this hospital. The patient does not exhibit any signs or symptoms of peritonitis, and I do not think there is any problem with his peritoneal dialysis catheter, although certainly this is at risk for secondary infection from his colitis. This will just need to be monitored for now. The next time that the peritoneal dialysis nurse flushes his catheter might be worthwhile to send some fluid for culture and Gram stain. His other medical problems appear to be stable. Job ID: [id number]
[2020-08-12] MEDS ORDERED: Melatonin 3 MG TAB PO PRN (22:43)
[2020-08-12] MEDS ORDERED: Melatonin 3 MG TAB PO SCH (22:45)
[2020-08-13] MEDS: Piperacillin/Tazobactam 2.25 GM in Sodium Chloride 0.9% 100 ML IVPB SCH ×2 (03:31→10:20)
[2020-08-13 05:27] LABS: #Eosinphils 0.3 thou/uL (0.0-0.7); #Lymphocytes 0.9 thou/uL (1.20-3.40); #Monocytes 0.7 thou/uL (0.11-0.59); #Neutrophils 5.4 thou/uL (1.40-6.50); %Basophils 0.6 % (0.0-1.0); %Eosinophils 4.3 % (0.0-10.0); %Lymphocytes 12.5 % (21.0-51.0); %Monocytes 9.1 % (0.0-10.0); %Neutrophils 73.6 % (42.0-75.0); Mean Corpuscular HGB CONC 33.1 g/dL (32.0-36.0); Mean Corpuscular Hemoglobin 33.5 pg (27.0-31.0); Mean Platelet Volume 8.6 fL (7.4-10.4); Platelet Count 153 thou/uL (130-400); RBC Distribution Width 14.3 % (11.5-14.5); White Blood Cell (WBC) Count 7.3 thou/uL (4.8-10.8)
[2020-08-13 05:31] LABS: Anion Gap 15 mmol/L (10-20); BUN (Urea Nitrogen) 38 mg/dL (8.4-25.7); Calc. Creatinine Clearance 23 mL/min (70-130); Calcium 8.2 mg/dL (7.8-10.44); Carbon Dioxide 24 mmol/L (23-31); Chloride 99 mmol/L (98-107); Estimated GFR-MDRD 21; Glucose 180 mg/dL (83-110); Magnesium 2.1 mg/dL (1.6-2.6); Potassium 3.6 mmol/L (3.5-5.1); Sodium 134 mmol/L (136-145)
[2020-08-13] MEDS: Levothyroxine Sodium 125 MCG TAB PO SCH (05:46)
[2020-08-13] MEDS: HumaLOG 300 UNITS/3 ML VIAL SC PRN ×2 (05:46→12:13)
[2020-08-13] MEDS ORDERED: Heparin 10,000 UNITS/ 10 ML VIAL ONE (09:19)
[2020-08-13] MEDS: Famotidine 20 MG TAB PO SCH (10:13)
[2020-08-13] MEDS: Amiodarone 200 MG TAB PO SCH (10:13)
--- NOTE | 2020-08-13 10:13 | PRG ---
DATE OF SERVICE: 08/13/2020 SUBJECTIVE: Mr. Lizama is a 79-year-old white male, who was admitted for abdominal pain. He is being treated for possible colitis. He is on IV antibiotics. We were consulted for management of his ESRD and maintenance hemodialysis. Surgery has also been consulted for the abdominal pain. The patient states that his abdominal pain is actually better. He was wanting to go home today. He denies any chest pain or shortness of breath. I have scheduled him for his regular dialysis today. OBJECTIVE: VITAL SIGNS: Blood pressure is 155/66, heart rate 74 respiratory rate 16, temperature 97.9, O2 saturation 98%. GENERAL: Awake, alert, comfortable, not in distress. SKIN: Adequate turgor. HEENT: Pinkish conjunctivae. Anicteric sclerae. No neck mass. No carotid bruits. No JVD. CHEST: No deformities. LUNGS: Clear breath sounds. HEART: Normal sinus rhythm. No murmurs. No gallops. No rubs. ABDOMEN: Globular, soft, nontender. No masses. Positive for PD catheter. EXTREMITIES: No edema. No deformities. MEDICATIONS: Medications of August 13, 2020, reviewed. LABORATORY DATA: Laboratories of August 13, 2020; white count 7.3, hemoglobin 10. Sodium 134, potassium 3.6, chloride 99, carbon dioxide 24, BUN 38, creatinine 2.86, glucose 180, calcium 8.2, and magnesium 2.1. ASSESSMENT AND PLAN: 1. End-stage renal disease. The patient is scheduled for his regular hemodialysis today. We will plan only to do a 3-hour hemodialysis with fluid removal as tolerated by the patient. 2. Abdominal pain - clinically improved secondary to presumed colitis. On IV antibiotics. If the patient is still here, we will recheck another CBC in a.m. Job ID: [id number] MTDD
[2020-08-13] MEDS: Heparin 5,000 UNITS/ML VIAL SC SCH (10:20)
[2020-08-13] MEDS: Tamsulosin HCl 0.4 MG CAP PO SCH ×2 (10:20→10:32)
[2020-08-13] MEDS: Polyethylene Glycol 3350 17 GM Packet PO SCH (10:20)
[2020-08-13] MEDS: Insulin Glargine 15 UNITS in Pre-Filled Syringe 1 EACH SC SCH (10:23)
--- NOTE | 2020-08-13 10:47 | PDOC.GSPN ---
Surgery Progress Note: Subj - Subjective Narrative: Patient is feeling a little better today. The left abdominal discomfort is improved. He is almost pain-free in that area now. He is tolerating regular diet and passing gas. He has not had a bowel movement yet. Vital signs are okay. Abdomen is soft with very minimal tenderness to palpation in the left lateral abdomen, less than yesterday. Normal bowel sounds. Assessment/plan: Colitis, improving on antibiotics. No sign of secondary infection of the peritoneal dialysis catheter. If discharge is planned I would transition him to oral antibiotics to complete a two-week course. Patient will need referral to a tertiary care center for work-up of his pancreatic abnormalities. Surgery Progress Note: Obj - Vital signs Vital signs: Vital Signs - Most Recent Temp Pulse Resp BP Pulse Ox 97.9 F 68 16 155/66 H 98 08/13/20 04:00 08/13/20 04:00 08/13/20 04:00 08/13/20 04:00 08/13/20 04:00 Surgery Progress Note: Results - Labs Result Diagrams: 08/13/20 04:44 08/13/20 04:44 Lab results: Laboratory Results - last 24 hr 08/13/20 08/13/20 08/13/20 04:44 04:44 05:26 WBC 7.3 RBC 3.00 L Hgb 10.0 L Hct 30.4 L MCV 101.0 H MCH 33.5 H MCHC 33.1 RDW 14.3 Plt Count 153 MPV 8.6 Neutrophils % 73.6 Lymphocytes % 12.5 L Monocytes % 9.1 Eosinophils % 4.3 Basophils % 0.6 Neutrophils # 5.4 Lymphocytes # 0.9 L Monocytes # 0.7 H Eosinophils # 0.3 Basophils # 0.0 Sodium 134 L Potassium 3.6 Chloride 99 Carbon Dioxide 24 Anion Gap 15 BUN 38 H Creatinine 2.86 H Estimated GFR (MDRD) 21 Glucose 180 H POC Glucose 169 H Calcium 8.2 Magnesium 2.1 08/13/20 10:38 WBC RBC Hgb Hct MCV MCH MCHC RDW Plt Count MPV Neutrophils % Lymphocytes % Monocytes % Eosinophils % Basophils % Neutrophils # Lymphocytes # Monocytes # Eosinophils # Basophils # Sodium Potassium Chloride Carbon Dioxide Anion Gap BUN Creatinine Estimated GFR (MDRD) Glucose POC Glucose 253 H Calcium Magnesium
[2020-08-13 11:22] VITALS: TEMP 97.4
--- NOTE | 2020-08-13 12:56 | EKG ---
Test Reason : Blood Pressure : / mmHG Vent. Rate : 103 BPM Atrial Rate : 103 BPM P-R Int : 146 ms QRS Dur : 100 ms QT Int : 354 ms P-R-T Axes : 043 -30 090 degrees QTc Int : 463 ms Sinus tachycardia Left axis deviation Left ventricular hypertrophy with repolarization abnormality Abnormal ECG Confirmed by PERCY EDMONDSON ([id number]), advertising editor EVANS SORENSEN ([id number]) on 08/13/2020 12:56:27 PM Referred By: Confirmed By:PERCY Islas
[2020-08-13 16:02] LABS: HBSAg Index 0.28 S/CO (0-0.99); Hep B Surf Ag Non-Reactive S/CO (NonReactive)
[2020-08-13 17:53] VITALS: BP 143/77
--- NOTE | 2020-08-15 06:36 | DIS ---
DATE OF ADMISSION: 08/12/2020 DATE OF DISCHARGE: 08/13/2020 DISCHARGE DIAGNOSES: 1. Abdominal pain secondary to colitis. 2. Sepsis secondary to colitis. 3. End-stage renal disease, on Saturday, , and Saturday hemodialysis. 4. History of aortic valve replacement, pacemaker, coronary artery disease, coronary artery bypass grafting, and carotid stenosis. 5. History of narcotic abuse. 6. New diagnosis of pancreatic cystic lesion. PHYSICAL EXAMINATION: GENERAL: On the day of discharge, the patient is doing well. He is quite anxious to go home today. He says he will follow up with GI as an outpatient. VITAL SIGNS: His temp is 97.4, pulse 60, blood pressure 168/73, satting 97% on room air. CARDIOVASCULAR: Regular rate and rhythm without murmur. LUNGS: Clear. ABDOMINAL: He has good bowel sounds. Peritoneal dialysis catheter site looks good. HOSPITAL COURSE: Please refer to history and physical and daily progress notes for more details. The patient admitted with colitis and some questionable infection on the peritoneal dialysis catheter. Surgery examined, evaluated him and does not require any further intervention. They recommended antibiotic for the colitis of two-week duration. Other than that no surgical intervention during this admission. CT abdomen performed showed two separate pancreatic mass in the tail as well as in the head, multi-cystic, but no internal enhancement concerning for cystic neoplasm. Radiology recommend endoscopic ultrasound with fine-needle aspiration. I talked to the GI on-call, Dr. Santana. Since this is nonemergent, he will follow him in the clinic and if needed, he will refer the patient for a tertiary center for further workup. The patient will be getting his dialysis today. He is quite anxious to go home and he will follow with the GI Clinic for the above. Serology negative for COVID. He is clinically stable, tolerating his diet. I will prescribe empiric antibiotic with Cipro and Flagyl for colitis. The stool cultures were not sent and there is no C. diff workup in the system. DISCHARGE INSTRUCTIONS: Activity as tolerated. Renal diet. Follow up with primary care physician in 1 week. Follow up with Dr. Santana, casting machine adjuster. Clinic number [phone]. Call Saturday for an appointment. The patient will be discharged home today. Job ID: [id number] [facility]
== END 2020-08-13 17:53 | disposition home or self-care (01) ==
LOC: ERS 20:50 → 2NO 08-12 00:01
PROVIDERS: ADMIT Internal Medicine; ATTEND Internal Medicine
DX: A41.9 Sepsis, unspecified organism (principal); K52.9 Noninfective gastroenteritis and colitis, unspecified; I12.0 Hypertensive chronic kidney disease with stage 5 chronic kidney disease or end stage renal disease; E11.22 Type 2 diabetes mellitus with diabetic chronic kidney disease; N18.6 End stage renal disease; D63.1 Anemia in chronic kidney disease; I25.10 Atherosclerotic heart disease of native coronary artery without angina pectoris; F11.11 Opioid abuse, in remission; K86.2 Cyst of pancreas; E89.2 Postprocedural hypoparathyroidism; E87.6 Hypokalemia; E11.51 Type 2 diabetes mellitus with diabetic peripheral angiopathy without gangrene; M21.372 Foot drop, left foot; M21.371 Foot drop, right foot; Z79.02 Long term (current) use of antithrombotics/antiplatelets; Z79.4 Long term (current) use of insulin; Z79.82 Long term (current) use of aspirin; Z79.899 Other long term (current) drug therapy; Z88.5 Allergy status to narcotic agent; Z95.0 Presence of cardiac pacemaker; Z95.1 Presence of aortocoronary bypass graft; Z95.2 Presence of prosthetic heart valve; Z20.828 Contact with and (suspected) exposure to other viral communicable diseases
CPT/HCPCS: 71045; 74170; 74177; 80048 ×2; 80053; 82553; 82962 ×2; 83605; 83690; 83735; 84484; 85025 ×3; 87040; 87340; 93005; 96365; 96367; 96375; 99285; U0003; 36415; 36416; 87635; 90935; 96372; 96376; G0257; G0378; J0692; J1644; J1815; J2270; J2405; J2543; J3370; J3490; Q9967

== ENCOUNTER 2020-08-19 06:56 | Outpatient (CLI) | payer MEDICARE, BC, OTHER ==
--- NOTE | 2020-08-15 22:19 | HP ---
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 I initially saw him in early July when he was seen for dialysis access. The patient had a right IJ cuffed tunneled [facility] The patient dialyzes at [facility] [place] Saturday, , and Saturday. The patient's son lives in [place]. Transportation is difficult for him. He is followed by plastic fabricator, Dr. Warren, and paper inspector, Dr. Aponte. The patient has had bilateral carotid stenting recently and most recently right postoperatively, he required emergent transfer to [place] for a TAVR as our local resources were not available. He had severe aortic regurgitation. He was then transferred to [facility] and then home. He had a laparoscopic peritoneal dialysis catheter placed earlier this month. He attended the peritoneal dialysis nurse who flushed it, and it seem to be working well. More recently, he developed left lower quadrant pain and was hospitalized. Had a CAT scan of the abdomen for uncinate pancreatic density of question, noted 2 separate masses; one in the pancreatic tail, one in the pancreatic head uncinate process, multicystic, some internal enhancement concerning for cystic neoplasm versus ectatic pancreatic duct. Endoscopic ultrasound was recommended. Pancreas noted to be small suggestive of chronic pancreatitis. 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 Initial CAT scan on admission from 08/11/2020 revealed peritoneal dialysis catheter in place. Some question of mild thickening in the mid descending colon. The patient is up to date on colonoscopies. Has seen Dr. Bolden in the past. Does not remember exactly when his colonoscopy was, but it was in the last few years. Before undergoing his laparoscopic peritoneal dialysis catheter, discussion was held with Dr. Aponte who felt he was safe risk for general anesthetic for dialysis access. I did discuss with the patient recommendations for primary fistula along with his laparoscopic PD catheter, but he declined. The patient's PD catheter has been flushed recently and could not get any return. Plan is for laparoscopic evaluation of the catheter. The patient was sent home on antibiotics for suspect colitis or diverticulitis as he had slight thickening of the left colonic wall. He was discharged on Augmentin, Cipro, and Flagyl. I have discussed with him, written down for him recommendations that he only take the Augmentin and not take the Cipro and Flagyl in addition. The patient is already feeling better and not have any pain. We have made arrangements for him to see Dr. Nik Self for endoscopic ultrasound and I initiated arrangement for him to see [facility] for future colonoscopy in the months to come. The patient does not appear to be in any distress, even though his PD catheter did not drain the fluid. We will plan laparoscopic evaluation of his PD catheter. He did have COVID testing in the last 4 days and it was negative. I have given him the option to do his laparoscopic evaluation tomorrow so that he does not have to redo COVID testing, but he has declined citing transportation problems. I initially planned that later this week, but he want to put this off to the of next week. I have again discussed with him recommendations for consideration of a primary fistula, but he has declined. I did talk to his dialysis nurse at [facility] and they will try to treat his PD catheter with Cathflo and make further attempts at irrigation in hopes it will work and avoid another operation. PAST SURGICAL HISTORY: Partial thyroidectomy; colonoscopy; [place] exposure; coronary bypass graft in 2000 after myocardial infarction, followed by Dr. Aponte; bilateral carotid stents placed by Dr. Malik; TAVR procedure in [place] this year; internal pacemaker in [place] in the last few weeks at the time he had his TAVR procedure; deconditioning, undergoing rehab now at home; driving independently. SOCIAL HISTORY: Tobacco none. Alcohol none. MEDICATIONS: Amiodarone, ascorbic acid, aspirin, carvedilol, ferrous sulfate, finasteride, insulin, levothyroxine, lisinopril, melatonin, nifedipine, Plavix, pravastatin, Protonix, Flomax. PAST MEDICAL HISTORY: End-stage renal disease, on hemodialysis currently, hopefully to begin peritoneal dialysis in the future; hypothyroidism, status post TAVR procedure; coronary artery disease, stable. Discussed with his paper inspector last few weeks before undergoing a general anesthetic, for which he was a candidate for. On maintenance dialysis Saturday, , and Saturday at [facility]. Donor Technician is Dr. Aponte. Access Service Representative is Dr. Warren. REVIEW OF SYSTEMS: Otherwise noncontributory. PHYSICAL EXAMINATION: VITAL SIGNS: Blood pressure 154/63, heart rate 97, temperature 97.2 degrees. HEAD, EYES, EARS, NOSE, AND THROAT: Unremarkable. LUNGS: Clear to auscultation. CARDIAC: Regular rate and rhythm without murmur or gallop. ABDOMEN: Soft, nontender except minimal tenderness in left lateral abdomen upper half. PD catheter in left lower quadrant. EXTREMITIES: Unremarkable. ASSESSMENT/PLAN: 1. Poorly dysfunctional peritoneal dialysis catheter. Plan, laparoscopic evaluation, repositioning procedures indicated. At the time of his initial laparoscopic PD catheter placement, omentum was adherent in the upper abdomen and omentopexy was not necessary. 2. Uncinate and pancreatic tail cystic questionable densities. I have discussed with Dr. Dr. Nik Self in [place] and will arrange endoscopic ultrasound for him. 3. Stable coronary artery disease. 4. Status post transcatheter aortic valve replacement procedure. 5. Status post bilateral carotid stenting. 6. 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 7. End-stage renal disease. 8. Diabetes mellitus. 9. Hypertension. 10. Recent episode of thickened colon on CAT scan treated as colitis. Take Augmentin and hold Nazario Montoya. Job ID: [id number]
[2020-08-20 14:53] LABS: SARS-CoV-2 MS2 Positive; SARS-CoV-2 N Gene Negative; SARS-CoV-2 S Gene Negative; SARS-CoV-2 by NAA Not Detected (NotDetected); SARS-CoV-2 orf1ab Negative
== END 2020-08-19 06:57 | disposition home or self-care (01) ==
LOC: LABBT 06:56
PROVIDERS: ATTEND Specialist
DX: N18.6 End stage renal disease (principal); Z20.828 Contact with and (suspected) exposure to other viral communicable diseases
CPT/HCPCS: 87635; U0003

== ENCOUNTER 2020-08-22 06:14 | Day surgery (SDC) | payer MEDICARE, BC ==
[2020-08-19 10:30] VITALS: BMI 25.2
[2020-08-22] MEDS ORDERED: Lidocaine 1% w/Epinephrine 1:100K 20 ML VIAL ONE (06:39)
[2020-08-22] MEDS ORDERED: Bupivacaine PF 0.5% 30 ML VIAL ONE (06:39)
[2020-08-22] MEDS ORDERED: Heparin 10,000 UNITS/ 10 ML VIAL ONE (06:39)
[2020-08-22] MEDS ORDERED: Fentanyl 100 MCG/2 ML VIAL ONE (06:43)
[2020-08-22] MEDS ORDERED: Meropenem 2 GM, Admixture Fee 1 EACH in Sodium Chloride 0.9% 100 ML IVPB SCH (07:00)
[2020-08-22 07:14] LABS: #Basophils 0.1 thou/uL (0.0-0.2); #Eosinphils 0.2 thou/uL (0.0-0.7); #Lymphocytes 1.1 thou/uL (1.20-3.40); #Monocytes 1.1 thou/uL (0.11-0.59); #Neutrophils 5.5 thou/uL (1.40-6.50); %Basophils 1.2 % (0.0-1.0); %Lymphocytes 14.1 % (21.0-51.0); %Monocytes 13.6 % (0.0-10.0); %Neutrophils 68.1 % (42.0-75.0); Hemoglobin 11.1 g/dL (14.0-18.0); Mean Corpuscular HGB CONC 32.9 g/dL (32.0-36.0); Mean Corpuscular Hemoglobin 32.9 pg (27.0-31.0); Mean Platelet Volume 7.9 fL (7.4-10.4); Platelet Count 177 thou/uL (130-400); RBC Distribution Width 13.4 % (11.5-14.5); Red Blood Cell (RBC) Count 3.37 mill/uL (4.70-6.10); White Blood Cell (WBC) Count 8.1 thou/uL (4.8-10.8)
[2020-08-22 07:37] LABS: Anion Gap 15 mmol/L (10-20); BUN (Urea Nitrogen) 32 mg/dL (8.4-25.7); Calc. Creatinine Clearance 22 mL/min (70-130); Calcium 9.4 mg/dL (7.8-10.44); Carbon Dioxide 27 mmol/L (23-31); Chloride 99 mmol/L (98-107); Estimated GFR-MDRD 19; Glucose 261 mg/dL (83-110); Potassium 3.4 mmol/L (3.5-5.1); Sodium 138 mmol/L (136-145)
[2020-08-22] MEDS ORDERED: Glycopyrrolate 0.2 MG/ML 5 ML SYRINGE ONE (11:30)
[2020-08-22] MEDS ORDERED: Rocuronium Bromide 10 MG/ML (10ML VIAL) ONE (11:30)
[2020-08-22] MEDS ORDERED: Lidocaine 1% PF 5 ML VIAL ONE (11:30)
[2020-08-22] MEDS ORDERED: EPHEDRINE 25 MG/5 ML SYRINGE ONE (11:30)
[2020-08-22] MEDS ORDERED: PROPOFOL 200 MG/20 ML VIAL ONE (11:30)
[2020-08-22] MEDS ORDERED: Ondansetron PF 4 MG/2 ML Vial ONE (11:30)
--- NOTE | 2020-08-22 14:20 | OP ---
DATE OF PROCEDURE: 08/22/2020 PREOPERATIVE DIAGNOSES: End-stage renal disease; peritoneal dialysis catheter dysfunction; hemodialysis catheter, right IJ cuffed tunneled present. POSTOPERATIVE DIAGNOSES: End-stage renal disease; peritoneal dialysis catheter dysfunction; hemodialysis catheter, right IJ cuffed tunneled present. ANESTHESIA: General, local 0.5% Marcaine 30 mL mixed with 1% Xylocaine with epinephrine 20 mL. FINDINGS: The catheter involved in epiploicae fat from the sigmoid colon interfering with this drainage. Note, omentum was short and thin and would not reach into the pelvis and omentopexy was not necessary. PROCEDURE PERFORMED: Laparoscopic evaluation of PD catheter with relocation and sling suture of laparoscopic 0 Ethibond suture to hold it in the right lower quadrant. DESCRIPTION OF PROCEDURE: The patient was taken to the operating room, where under general anesthesia, abdomen was clipped of hair, prepared with ChloraPrep and draped in routine fashion. Catheter prepared with ChloraPrep. A bilateral far lateral incision was made through the old port site scars and pneumoperitoneum to 15 mmHg was obtained with a Veress needle, replacing with 5 ports with contralateral placed under laparoscopic visualization. There was not an abundant amount of fluid present. The catheter was localized in the left lateral upper pelvis, wrapped with appendage epiploicae fat from the sigmoid colon. Omentum would not reach into the pelvis and was not involved in the process. Omentopexy was not necessary. Catheter relocated to the right lower quadrant, held in place with a sling suture of 0 Ethibond, placed with a [place] needle, directed into the right lower quadrant with transabdominal fixation technique. The catheter was then flushed, visualized laparoscopically to flush well without problems. There was scant fluid in the belly cavity. Pneumoperitoneum reduced. All instruments were removed and all skin incisions were approximated with interrupted subdermal 4-0 Monocryl and Charlack glue applied. The patient tolerated the procedure well. Job ID: [id number]
== END 2020-08-22 10:45 | disposition home or self-care (01) ==
LOC: SDC 06:14
PROVIDERS: ATTEND Specialist
PROC: 0JWT33Z Revision of Infusion Device in Trunk Subcutaneous Tissue and Fascia, Percutaneous Approach (ICD-10-PCS; principal; 2020-08-22)
DX: T85.691A Other mechanical complication of intraperitoneal dialysis catheter, initial encounter (principal); I12.0 Hypertensive chronic kidney disease with stage 5 chronic kidney disease or end stage renal disease; N18.6 End stage renal disease; I25.10 Atherosclerotic heart disease of native coronary artery without angina pectoris; I25.2 Old myocardial infarction; Z79.02 Long term (current) use of antithrombotics/antiplatelets; Z79.4 Long term (current) use of insulin; Z79.82 Long term (current) use of aspirin; Z79.899 Other long term (current) drug therapy; Z95.1 Presence of aortocoronary bypass graft
CPT/HCPCS: 80048; 85025; J1644; J2185; J2405; J2704; J3010; J3490; S0020

== ENCOUNTER 2021-02-19 14:30 | Inpatient (IN) | payer MEDICARE, BC ==
[2021-02-19 15:47] LABS: #Eosinphils 0.3 thou/uL (0.0-0.7); #Lymphocytes 0.7 thou/uL (1.20-3.40); #Monocytes 0.9 thou/uL (0.11-0.59); #Neutrophils 9.4 thou/uL (1.40-6.50); %Basophils 0.4 % (0.0-1.0); %Eosinophils 2.6 % (0.0-10.0); %Lymphocytes 6.4 % (21.0-51.0); %Monocytes 7.6 % (0.0-10.0); Hemoglobin 11.6 g/dL (14.0-18.0); Mean Corpuscular HGB CONC 33.5 g/dL (32.0-36.0); Mean Corpuscular Hemoglobin 32.8 pg (27.0-31.0); Mean Corpuscular Volume 97.6 fL (78.0-98.0); Mean Platelet Volume 8.1 fL (7.4-10.4); Platelet Count 300 thou/uL (130-400); RBC Distribution Width 12.4 % (11.5-14.5); Red Blood Cell (RBC) Count 3.55 mill/uL (4.70-6.10); White Blood Cell (WBC) Count 11.4 thou/uL (4.8-10.8)
[2021-02-19 16:29] LABS: CKMB 1.8 ng/mL (0-6.6)
[2021-02-19 17:25] LABS: ALT (SGPT) 428 U/L (8-55); AST (SGOT) 187 U/L (5-34); Albumin 3.4 g/dL (3.4-4.8); Alkaline Phosphatase 810 U/L (40-110); Anion Gap 22 mmol/L (10-20); BUN (Urea Nitrogen) 52 mg/dL (8.4-25.7); Bilirubin, Total 4.3 mg/dL (0.2-1.2); Calc. Creatinine Clearance 0 mL/min (70-130); Calcium 8.9 mg/dL (7.8-10.44); Carbon Dioxide 20 mmol/L (23-31); Chloride 99 mmol/L (98-107); Globulin 3.5 g/dL (2.4-3.5); Glucose 170 mg/dL (83-110); Potassium 3.6 mmol/L (3.5-5.1); Protein, Total 6.9 g/dL (5.8-8.1); Sodium 137 mmol/L (136-145)
[2021-02-19] MEDS ORDERED: Dextrose 50% Abboject 50 ML SYRINGE SLOW IVP PRN (20:07)
[2021-02-19] MEDS ORDERED: Dextrose 5% in Water 1,000 ML IV PRN (20:07)
[2021-02-19] MEDS ORDERED: Ondansetron ODT 4 MG TAB PO PRN (20:08)
[2021-02-19] MEDS ORDERED: Senokot S 8.6-50 MG TAB PO PRN (20:08)
[2021-02-19] MEDS ORDERED: Calcium Carbonate 500 MG ChewTAB PO PRN (20:08)
[2021-02-19] MEDS ORDERED: Ondansetron PF 4 MG/2 ML Vial IVP PRN (20:08)
[2021-02-19] MEDS ORDERED: Bisacodyl 5 MG TAB PO PRN (20:08)
[2021-02-19 21:57] LABS: Bacteria/HPF None Seen HPF (None Seen); Bilirubin Negative (Negative); Blood, Urine Negative (Negative); Clarity Turbid (Clear); Glucose, Urine (Dipstick) Normal (Negative); Ketone, Urine Trace mg/dL (Negative); Leukocyte 500 Leu/uL (Negative); Nitrite Negative (Negative); Protein, Urine (Dipstick) 70 mg/dL (Neg-Trace); Specific Gravity, Urine 1.033 (1.002-1.036); Squamous Epithelial 0-3 HPF (0-3); WBC/HPF Greater than 50 HPF (0-3); pH, Urine 5.5 (5.0-9.0)
[2021-02-19 22:01] LABS: Troponin I 0.056 ng/mL (< 0.028)
[2021-02-19 22:08] LABS: Yeast-Budding 1+ HPF (None Seen); Yeast-Hyphae Rare HPF (None Seen)
[2021-02-19] MEDS: Sodium Chloride 0.9% 1,000 ML IV SCH (22:28)
[2021-02-19 22:53] VITALS: BMI 23.8
[2021-02-20 00:36] LABS: SARS-CoV-2 PCR by NAA Not Detected (NotDetected)
[2021-02-20] MEDS: Acetaminophen 325 MG TAB PO PRN ×2 (00:39→21:06)
[2021-02-20] MEDS ORDERED: Melatonin 3 MG TAB PO SCH (00:45)
[2021-02-20 02:24] LABS: Troponin I 0.046 ng/mL (< 0.028)
[2021-02-20] MEDS: HumaLOG 300 UNITS/3 ML VIAL SC PRN ×3 (05:30→21:13)
[2021-02-20 06:25] LABS: INR-International Normal Ratio 1.1; PTT 33.6 sec (22.9-36.1); Prothrombin Time 14.1 sec (12.0-14.7)
[2021-02-20 06:41] LABS: ALT (SGPT) 325 U/L (8-55); AST (SGOT) 151 U/L (5-34); Albumin 2.8 g/dL (3.4-4.8); Alkaline Phosphatase 745 U/L (40-110); Anion Gap 16 mmol/L (10-20); BUN (Urea Nitrogen) 57 mg/dL (8.4-25.7); Bilirubin, Total 4.9 mg/dL (0.2-1.2); Calc. Creatinine Clearance 13 mL/min (70-130); Calcium 7.8 mg/dL (7.8-10.44); Carbon Dioxide 21 mmol/L (23-31); Chloride 100 mmol/L (98-107); Glucose 369 mg/dL (83-110); Magnesium 2.6 mg/dL (1.6-2.6); Potassium 3.5 mmol/L (3.5-5.1); Protein, Total 5.6 g/dL (5.8-8.1); Sodium 133 mmol/L (136-145)
[2021-02-20 06:45] LABS: #Eosinphils 0.4 thou/uL (0.0-0.7); #Lymphocytes 0.7 thou/uL (1.20-3.40); #Monocytes 0.8 thou/uL (0.11-0.59); #Neutrophils 7.5 thou/uL (1.40-6.50); %Basophils 0.5 % (0.0-1.0); %Eosinophils 4.6 % (0.0-10.0); %Lymphocytes 7.3 % (21.0-51.0); %Monocytes 8.3 % (0.0-10.0); %Neutrophils 79.3 % (42.0-75.0); Mean Corpuscular Hemoglobin 33.4 pg (27.0-31.0); Mean Corpuscular Volume 98.1 fL (78.0-98.0); Mean Platelet Volume 8.4 fL (7.4-10.4); Platelet Count 249 thou/uL (130-400); RBC Distribution Width 12.3 % (11.5-14.5); Red Blood Cell (RBC) Count 2.98 mill/uL (4.70-6.10); White Blood Cell (WBC) Count 9.4 thou/uL (4.8-10.8)
[2021-02-20 08:00] LABS: MDiff Complete? YES; Platelet Morphology Comment Appears Adequate; Polychromasia SLIGHT = 2-3 cells (100X) (0-2/hpf)
[2021-02-20] MEDS ORDERED: Enoxaparin Sodium 30 MG/0.3 ML SYRINGE SC SCH (09:00)
[2021-02-20] MEDS ORDERED: FLU VACC QS2020-21(65YR UP)/PF 240 MCG/0.7 ML SYRINGE IM ONE (09:00)
[2021-02-20] MEDS ORDERED: Epoetin (ESRD) 20,000 UNITS/ML SC SCH (09:30)
[2021-02-20] MEDS ORDERED: HYDROcodone/Acetaminophen 5/325 mg Tablet PO PRN (11:00)
[2021-02-20] MEDS ORDERED: Zolpidem Tartrate 5 MG TAB PO PRN (11:00)
[2021-02-20] MEDS ORDERED: Cepastat Lozenges 1 LOZ PO PRN (11:00)
[2021-02-20] MEDS ORDERED: GUAIFENESIN SF SOLN 200 MG/10 ML UDCUP PO PRN (11:00)
[2021-02-20] MEDS ORDERED: Loperamide HCl 2 MG CAP PO PRN (11:00)
[2021-02-20] MEDS ORDERED: Sodium Chloride 0.65% Nasal 44 ML BOT EA NARE PRN (11:00)
[2021-02-20] MEDS ORDERED: EPOETIN ALFA-EPBX (ESRD) 4,000 UNIT/ML VIAL SC SCH (12:00)
[2021-02-20] MEDS: Sodium Chloride 0.9% 1,000 ML IV SCH (12:16)
[2021-02-20] MEDS: hydrALAZINE 20 MG/ML VIAL SLOW IVP PRN ×3 (12:37→22:18)
[2021-02-20] MEDS: Dronedarone HCl 400 MG TAB PO SCH (16:27)
[2021-02-20] MEDS: hydrALAZINE 25 MG TAB PO SCH ×2 (16:28→21:04)
[2021-02-20] MEDS ORDERED: HumaLOG 300 UNITS/3 ML VIAL SC SCH (20:30)
[2021-02-20] MEDS: Loratadine 10 MG TAB PO PRN (21:05)
[2021-02-20] MEDS: Atorvastatin Calcium 10 MG TAB PO SCH (21:05)
[2021-02-20] MEDS: Tamsulosin HCl 0.4 MG CAP PO SCH (21:06)
[2021-02-20] MEDS: Lantus 1000 UNITS/10 ML VIAL SC SCH (21:11)
[2021-02-21] MEDS ORDERED: diphenhydrAMINE 25 MG CAP PO SCH (02:30)
[2021-02-21] MEDS: HumaLOG 300 UNITS/3 ML VIAL SC PRN ×4 (05:46→20:48)
[2021-02-21] MEDS: Levothyroxine 150 MCG TAB PO SCH (05:48)
[2021-02-21] MEDS: hydrALAZINE 20 MG/ML VIAL SLOW IVP PRN (05:49)
[2021-02-21 06:19] LABS: #Eosinphils 0.4 thou/uL (0.0-0.7); #Lymphocytes 0.7 thou/uL (1.20-3.40); #Monocytes 0.9 thou/uL (0.11-0.59); #Neutrophils 6.9 thou/uL (1.40-6.50); %Basophils 0.2 % (0.0-1.0); %Eosinophils 4.8 % (0.0-10.0); %Monocytes 10.5 % (0.0-10.0); %Neutrophils 76.6 % (42.0-75.0); Hemoglobin 10.3 g/dL (14.0-18.0); Mean Corpuscular HGB CONC 34.4 g/dL (32.0-36.0); Mean Corpuscular Hemoglobin 33.5 pg (27.0-31.0); Mean Corpuscular Volume 97.4 fL (78.0-98.0); Mean Platelet Volume 8.7 fL (7.4-10.4); Platelet Count 244 thou/uL (130-400); RBC Distribution Width 12.7 % (11.5-14.5); Red Blood Cell (RBC) Count 3.09 mill/uL (4.70-6.10)
[2021-02-21] MEDS: Dronedarone HCl 400 MG TAB PO SCH ×2 (08:11→16:10)
[2021-02-21] MEDS: NIFEdipine XL 60 MG TAB PO SCH (08:11)
[2021-02-21] MEDS: Ascorbic Acid 500 mg Chewable Tablet PO SCH (08:12)
[2021-02-21] MEDS: hydrALAZINE 25 MG TAB PO SCH ×3 (08:13→20:44)
[2021-02-21] MEDS: Finasteride 5 MG TAB PO SCH (08:13)
[2021-02-21] MEDS ORDERED: Aspirin 81 mg Enteric Coated Tablet PO SCH (09:00)
[2021-02-21 10:49] LABS: ALT (SGPT) 348 U/L (8-55); AST (SGOT) 225 U/L (5-34); Albumin 2.9 g/dL (3.4-4.8); Alkaline Phosphatase 994 U/L (40-110); Anion Gap 18 mmol/L (10-20); BUN (Urea Nitrogen) 52 mg/dL (8.4-25.7); Bilirubin, Total 5.6 mg/dL (0.2-1.2); Calc. Creatinine Clearance 15 mL/min (70-130); Calcium 7.9 mg/dL (7.8-10.44); Carbon Dioxide 17 mmol/L (23-31); Chloride 101 mmol/L (98-107); Globulin 3.1 g/dL (2.4-3.5); Glucose 281 mg/dL (83-110); Lipase 19 U/L (8-78); Potassium 3.6 mmol/L (3.5-5.1); Sodium 132 mmol/L (136-145)
[2021-02-21] MEDS: Acetaminophen 325 MG TAB PO PRN ×2 (11:12→20:44)
[2021-02-21] MEDS: Loratadine 10 MG TAB PO PRN (12:47)
[2021-02-21] MEDS ORDERED: HumaLOG 300 UNITS/3 ML VIAL SC SCH (17:30)
[2021-02-21] MEDS: Tamsulosin HCl 0.4 MG CAP PO SCH (20:44)
[2021-02-21] MEDS: Atorvastatin Calcium 10 MG TAB PO SCH (20:45)
[2021-02-21] MEDS: Lantus 1000 UNITS/10 ML VIAL SC SCH (20:46)
[2021-02-21] MEDS: Cholestyramine/Aspartame 4 gm Packet PO SCH (22:30)
[2021-02-22] MEDS: HumaLOG 300 UNITS/3 ML VIAL SC PRN ×2 (04:59→13:23)
[2021-02-22] MEDS: Levothyroxine 150 MCG TAB PO SCH (05:00)
[2021-02-22] MEDS: Acetaminophen 325 MG TAB PO PRN ×3 (05:01→19:30)
[2021-02-22 06:04] LABS: #Eosinphils 0.7 thou/uL (0.0-0.7); #Lymphocytes 0.6 thou/uL (1.20-3.40); #Monocytes 0.9 thou/uL (0.11-0.59); #Neutrophils 9.7 thou/uL (1.40-6.50); %Basophils 0.4 % (0.0-1.0); %Eosinophils 5.7 % (0.0-10.0); %Lymphocytes 5.3 % (21.0-51.0); %Monocytes 7.6 % (0.0-10.0); %Neutrophils 81.1 % (42.0-75.0); Hemoglobin 9.9 g/dL (14.0-18.0); Mean Corpuscular HGB CONC 34.6 g/dL (32.0-36.0); Mean Corpuscular Hemoglobin 33.8 pg (27.0-31.0); Mean Corpuscular Volume 97.9 fL (78.0-98.0); Mean Platelet Volume 8.7 fL (7.4-10.4); Platelet Count 243 thou/uL (130-400); RBC Distribution Width 12.8 % (11.5-14.5); Red Blood Cell (RBC) Count 2.93 mill/uL (4.70-6.10); White Blood Cell (WBC) Count 11.9 thou/uL (4.8-10.8)
[2021-02-22 06:23] LABS: ALT (SGPT) 318 U/L (8-55); AST (SGOT) 191 U/L (5-34); Albumin 2.6 g/dL (3.4-4.8); Alkaline Phosphatase 987 U/L (40-110); Anion Gap 14 mmol/L (10-20); BUN (Urea Nitrogen) 51 mg/dL (8.4-25.7); Bilirubin, Total 5.8 mg/dL (0.2-1.2); Calc. Creatinine Clearance 15 mL/min (70-130); Calcium 7.7 mg/dL (7.8-10.44); Carbon Dioxide 21 mmol/L (23-31); Chloride 101 mmol/L (98-107); Globulin 2.9 g/dL (2.4-3.5); Glucose 390 mg/dL (83-110); Potassium 3.3 mmol/L (3.5-5.1); Protein, Total 5.5 g/dL (5.8-8.1); Sodium 133 mmol/L (136-145)
[2021-02-22] MEDS: Ascorbic Acid 500 mg Chewable Tablet PO SCH (08:53)
[2021-02-22] MEDS: Finasteride 5 MG TAB PO SCH (08:54)
[2021-02-22] MEDS: NIFEdipine XL 60 MG TAB PO SCH (08:54)
[2021-02-22] MEDS: hydrALAZINE 25 MG TAB PO SCH ×2 (08:55→15:00)
[2021-02-22] MEDS: Dronedarone HCl 400 MG TAB PO SCH ×2 (08:55→17:38)
[2021-02-22] MEDS: Cholestyramine/Aspartame 4 gm Packet PO SCH (08:56)
[2021-02-22] MEDS ORDERED: Polyethylene Glycol 3350 17 GM Packet PO SCH (09:00)
[2021-02-22] MEDS ORDERED: diphenhydrAMINE 25 MG CAP PO PRN (16:58)
[2021-02-22 19:12] VITALS: BP 148/74; TEMP 97.8
== END 2021-02-22 19:41 | disposition short-term general hospital (02) | DRG 435 ==
LOC: ERS 14:30 → T4-B 19:15
PROVIDERS: ADMIT Student in an Organized Health Care Education/Training Program; ATTEND Hospitalist
PROC: 3E1M39Z Irrigation of Peritoneal Cavity using Dialysate, Percutaneous Approach (ICD-10-PCS; principal; 2021-02-19)
DX: C25.0 Malignant neoplasm of head of pancreas (principal); K83.1 Obstruction of bile duct; N18.6 End stage renal disease; G82.20 Paraplegia, unspecified; Z66 Do not resuscitate; I25.10 Atherosclerotic heart disease of native coronary artery without angina pectoris; E78.5 Hyperlipidemia, unspecified; E11.22 Type 2 diabetes mellitus with diabetic chronic kidney disease; N40.0 Benign prostatic hyperplasia without lower urinary tract symptoms; E11.51 Type 2 diabetes mellitus with diabetic peripheral angiopathy without gangrene; D64.9 Anemia, unspecified; E03.9 Hypothyroidism, unspecified; I48.91 Unspecified atrial fibrillation; M21.372 Foot drop, left foot; M21.371 Foot drop, right foot; Z98.42 Cataract extraction status, left eye; Z98.41 Cataract extraction status, right eye; Z95.0 Presence of cardiac pacemaker; Z79.82 Long term (current) use of aspirin; Z95.1 Presence of aortocoronary bypass graft; Z99.2 Dependence on renal dialysis; Z79.01 Long term (current) use of anticoagulants; Z95.2 Presence of prosthetic heart valve; Z79.4 Long term (current) use of insulin
CPT/HCPCS: 36415; 36416; 71045; 74177; 80048; 80053; 80076; 81001; 82010; 82553; 83690; 83735; 83880; 84443; 84484; 85025; 85379; 85610; 85730; 87635; 90945; 93005; G0257; J0360; J1815; Q0163; Q5105; Q9967; U0003; U0005

== ENCOUNTER 2021-03-09 19:55 | Inpatient (IN) | payer MEDICARE, BC ==
[2021-03-09 21:55] LABS: ALT (SGPT) 27 U/L (8-55); AST (SGOT) 21 U/L (5-34); Albumin 2.6 g/dL (3.4-4.8); Alkaline Phosphatase 183 U/L (40-110); Anion Gap 17 mmol/L (10-20); BUN (Urea Nitrogen) 69 mg/dL (8.4-25.7); Bilirubin, Total 0.7 mg/dL (0.2-1.2); Calc. Creatinine Clearance 0 mL/min (70-130); Calcium 7.3 mg/dL (7.8-10.44); Carbon Dioxide 21 mmol/L (23-31); Chloride 99 mmol/L (98-107); Glucose 89 mg/dL (83-110); Lipase 10 U/L (8-78); Potassium 3.5 mmol/L (3.5-5.1); Protein, Total 5.6 g/dL (5.8-8.1); Sodium 133 mmol/L (136-145)
[2021-03-09 22:12] LABS: Hemoglobin 8.4 g/dL (14.0-18.0); Mean Corpuscular HGB CONC 33.1 g/dL (32.0-36.0); Mean Corpuscular Hemoglobin 32.3 pg (27.0-31.0); Mean Corpuscular Volume 97.5 fL (78.0-98.0); Mean Platelet Volume 7.8 fL (7.4-10.4); Platelet Count 348 thou/uL (130-400); RBC Distribution Width 12.3 % (11.5-14.5); Red Blood Cell (RBC) Count 2.59 mill/uL (4.70-6.10); White Blood Cell (WBC) Count 26.6 thou/uL (4.8-10.8)
[2021-03-09 22:27] LABS: Band 6 % (5-11); Hypochromia SLIGHT = 6-15 cells (100X) (0-5/hpf); Lymphocytes 10 % (21-51); MDiff Complete? YES; Monocytes 13 % (0-10); Neutrophil 71 % (42-75); Platelet Morphology Comment Appears Adequate
[2021-03-09] MEDS ORDERED: Cefepime 2 GM VIAL ONE (22:46)
[2021-03-09 23:15] LABS: Bilirubin Negative (Negative); Blood, Urine Negative (Negative); Clarity Clear (Clear); Glucose, Urine (Dipstick) Normal (Negative); Ketone, Urine Negative (Negative); Leukocyte 75 Leu/uL (Negative); Nitrite Negative (Negative); Protein, Urine (Dipstick) 50 mg/dL (Neg-Trace); RBC/HPF 0-3 HPF (0-3); Renal Epithelial 0-3 HPF (None Seen); Squamous Epithelial 0-3 HPF (0-3); Urobilinogen Normal mg/dL (Less than 2); Yeast-Budding Rare HPF (None Seen)
[2021-03-09 23:21] LABS: Bacteria/HPF 1+ HPF (None Seen)
[2021-03-10] MEDS ORDERED: Dextrose 5% in Water 1,000 ML IV PRN (01:27)
[2021-03-10] MEDS ORDERED: HYDROcodone/Acetaminophen 5/325 mg Tablet PO PRN (01:27)
[2021-03-10] MEDS ORDERED: Dextrose 50% Abboject 50 ML SYRINGE SLOW IVP PRN (01:27)
[2021-03-10] MEDS ORDERED: Ondansetron PF 4 MG/2 ML Vial IVP PRN ×2 (01:27→01:45)
[2021-03-10] MEDS ORDERED: Ondansetron ODT 4 MG TAB SL PRN (01:45)
[2021-03-10] MEDS ORDERED: HOLD VANCOMYCIN FOR LEVEL >20 FS SCH (02:00)
[2021-03-10 02:09] VITALS: BMI 23.5
[2021-03-10] MEDS: Piperacillin/Tazobactam 4.5 GM in Sodium Chloride 0.9% 100 ML IVPB SCH ×2 (03:16→12:29)
[2021-03-10] MEDS: Dextrose 5% in Water 1,000 ML IV SCH (04:25)
[2021-03-10 06:13] LABS: #Eosinphils 0.1 thou/uL (0.0-0.7); #Lymphocytes 0.7 thou/uL (1.20-3.40); %Eosinophils 0.3 % (0.0-10.0); %Lymphocytes 3.3 % (21.0-51.0); %Monocytes 4.7 % (0.0-10.0); %Neutrophils 91.8 % (42.0-75.0); Mean Corpuscular HGB CONC 32.4 g/dL (32.0-36.0); Mean Corpuscular Hemoglobin 31.8 pg (27.0-31.0); Mean Corpuscular Volume 98.3 fL (78.0-98.0); Platelet Count 297 thou/uL (130-400); RBC Distribution Width 12.5 % (11.5-14.5); Red Blood Cell (RBC) Count 2.21 mill/uL (4.70-6.10); White Blood Cell (WBC) Count 20.7 thou/uL (4.8-10.8)
[2021-03-10 06:41] LABS: Anion Gap 17 mmol/L (10-20); BUN (Urea Nitrogen) 65 mg/dL (8.4-25.7); Calc. Creatinine Clearance 16 mL/min (70-130); Calcium 6.7 mg/dL (7.8-10.44); Carbon Dioxide 19 mmol/L (23-31); Chloride 102 mmol/L (98-107); Glucose 144 mg/dL (83-110); Potassium 3.6 mmol/L (3.5-5.1); Sodium 134 mmol/L (136-145)
[2021-03-10 08:41] LABS: SARS-CoV-2 PCR by NAA Not Detected (NotDetected)
[2021-03-10] MEDS ORDERED: Vancomycin HCl 500 MG in Sodium Chloride 0.9% 100 ML IVPB SCH (09:00)
[2021-03-10] MEDS ORDERED: Vancomycin 1 GM in Premix Bag 1 BAG IVPB SCH (09:00)
[2021-03-10] MEDS ORDERED: Vancomycin HCl 1.25 GM in Sodium Chloride 0.9% 250 ML 250 ML IVPB SCH (09:00)
[2021-03-10] MEDS ORDERED: Vancomycin HCl 750 MG in Sodium Chloride 0.9% 250 ML 250 ML IVPB SCH (09:00)
[2021-03-10] MEDS ORDERED: VANCOMYCIN 1.25 GM/250 ML BAG IVPB SCH (09:00)
[2021-03-10] MEDS ORDERED: Iopamidol-370 76% 500 ML 1 ML ONE (09:40)
[2021-03-10] MEDS ORDERED: EPOETIN ALFA-EPBX (ESRD) 4,000 UNIT/ML VIAL SC SCH (10:45)
[2021-03-10] MEDS: HumaLOG 300 UNITS/3 ML VIAL SC PRN ×2 (12:30→23:19)
[2021-03-10 20:48] LABS: RBC Count-Automated (BF) 107 /cu.mm; WBC/Nucleated-Auto (BF) 43 uL
[2021-03-10 20:50] LABS: BF Color Colorless; Body Fluid Source Peritoneal Fluid; Clarity Clear (Clear); Tube # EDTA
[2021-03-10 21:20] LABS: BF Segmented Neutrophils 63 %; Cell Count Non Hematic 27 %; Eosinophils 2 %; Lymphocytes 7 %
[2021-03-10] MEDS ORDERED: VANCOMYCIN 2 GRAM/400 ML BAG 2 GM in Premix Bag 1 BAG IVPB SCH (23:59)
[2021-03-11] MEDS: Dextrose 5% in Water 1,000 ML IV SCH (02:18)
[2021-03-11] MEDS: Piperacillin/Tazobactam 4.5 GM in Sodium Chloride 0.9% 100 ML IVPB SCH ×2 (04:14→14:30)
[2021-03-11 06:22] LABS: #Basophils 0.1 thou/uL (0.0-0.2); #Eosinphils 0.3 thou/uL (0.0-0.7); #Lymphocytes 0.7 thou/uL (1.20-3.40); #Monocytes 1.1 thou/uL (0.11-0.59); %Basophils 0.5 % (0.0-1.0); %Eosinophils 2.5 % (0.0-10.0); %Lymphocytes 6.2 % (21.0-51.0); %Neutrophils 80.9 % (42.0-75.0); Hemoglobin 8.5 g/dL (14.0-18.0); Mean Corpuscular HGB CONC 33.3 g/dL (32.0-36.0); Mean Corpuscular Hemoglobin 32.7 pg (27.0-31.0); Platelet Count 310 thou/uL (130-400); RBC Distribution Width 12.6 % (11.5-14.5); Red Blood Cell (RBC) Count 2.59 mill/uL (4.70-6.10); White Blood Cell (WBC) Count 11.1 thou/uL (4.8-10.8)
[2021-03-11] MEDS: HumaLOG 300 UNITS/3 ML VIAL SC PRN ×4 (06:42→21:05)
[2021-03-11 06:47] LABS: ALT (SGPT) 25 U/L (8-55); AST (SGOT) 32 U/L (5-34); Albumin 2.2 g/dL (3.4-4.8); Alkaline Phosphatase 144 U/L (40-110); Anion Gap 17 mmol/L (10-20); BUN (Urea Nitrogen) 49 mg/dL (8.4-25.7); Bilirubin, Total 0.6 mg/dL (0.2-1.2); Calc. Creatinine Clearance 18 mL/min (70-130); Calcium 6.8 mg/dL (7.8-10.44); Carbon Dioxide 20 mmol/L (23-31); Chloride 102 mmol/L (98-107); Globulin 2.9 g/dL (2.4-3.5); Glucose 274 mg/dL (83-110); Potassium 3.3 mmol/L (3.5-5.1); Protein, Total 5.1 g/dL (5.8-8.1); Sodium 136 mmol/L (136-145)
[2021-03-11] MEDS: Saccharomyces boulardii 250 MG CAP PO SCH (08:21)
[2021-03-11] MEDS ORDERED: Dronedarone HCl 400 MG TAB PO SCH (10:00)
[2021-03-11] MEDS ORDERED: NIFEdipine XL 60 MG TAB PO SCH (10:15)
[2021-03-11] MEDS ORDERED: Lantus 1000 UNITS/10 ML VIAL SC SCH (10:15)
[2021-03-11] MEDS ORDERED: Potassium Chloride 20 MEQ TAB PO SCH (11:00)
[2021-03-11] MEDS: hydrALAZINE 25 MG TAB PO SCH ×2 (14:30→21:02)
[2021-03-11] MEDS: Dronedarone HCl 400 MG TAB PO SCH (17:58)
[2021-03-11] MEDS ORDERED: Non-Formulary Item 1 EACH (Insulin Glargine,Hum.Rec.Anlog [Lantus Solostar] 100 UNIT/ML P SQ SCH (21:00)
[2021-03-11] MEDS: Tamsulosin HCl 0.4 MG CAP PO SCH (21:02)
[2021-03-11] MEDS: Acetaminophen 325 MG TAB PO PRN (21:03)
[2021-03-11] MEDS: HumaLOG 300 UNITS/3 ML VIAL SC SCH (21:04)
[2021-03-12] MEDS: Piperacillin/Tazobactam 4.5 GM in Sodium Chloride 0.9% 100 ML IVPB SCH ×2 (02:08→14:44)
[2021-03-12] MEDS: Ondansetron ODT 4 MG TAB PO PRN ×2 (03:01→19:28)
[2021-03-12 08:23] LABS: Vancomycin, Random 32.4 ug/mL (See Comment)
[2021-03-12] MEDS: Pancrelipase DR 12,000 1 CAP PO SCH ×3 (08:30→17:34)
[2021-03-12] MEDS: Dronedarone HCl 400 MG TAB PO SCH ×2 (08:46→17:34)
[2021-03-12] MEDS: NIFEdipine XL 60 MG TAB PO SCH (08:46)
[2021-03-12] MEDS: Calcium Carbonate 500 MG TAB PO SCH (08:46)
[2021-03-12] MEDS: Aspirin 81 mg Enteric Coated Tablet PO SCH (08:46)
[2021-03-12] MEDS: hydrALAZINE 25 MG TAB PO SCH ×3 (08:46→20:24)
[2021-03-12] MEDS: Levothyroxine 150 MCG TAB PO SCH (08:46)
[2021-03-12] MEDS: Finasteride 5 MG TAB PO SCH (08:46)
[2021-03-12] MEDS: Saccharomyces boulardii 250 MG CAP PO SCH (08:46)
[2021-03-12] MEDS: Polyethylene Glycol 3350 17 GM Packet PO SCH (08:50)
[2021-03-12] MEDS ORDERED: Polyethylene Glycol 3350 17 GM Packet PO SCH (09:00)
[2021-03-12] MEDS ORDERED: NIFEdipine XL 90 MG TAB PO SCH (09:00)
[2021-03-12] MEDS ORDERED: Aspirin 81 mg Enteric Coated Tablet PO SCH (09:00)
[2021-03-12] MEDS ORDERED: Lantus 1000 UNITS/10 ML VIAL SC SCH ×2 (09:00→11:45)
[2021-03-12 09:35] LABS: #Eosinphils 0.3 thou/uL (0.0-0.7); #Lymphocytes 1.2 thou/uL (1.20-3.40); #Monocytes 1.1 thou/uL (0.11-0.59); #Neutrophils 10.1 thou/uL (1.40-6.50); %Basophils 0.1 % (0.0-1.0); %Eosinophils 2.2 % (0.0-10.0); %Lymphocytes 9.6 % (21.0-51.0); %Monocytes 8.3 % (0.0-10.0); %Neutrophils 79.9 % (42.0-75.0); Hemoglobin 9.6 g/dL (14.0-18.0); Mean Corpuscular HGB CONC 33.1 g/dL (32.0-36.0); Mean Corpuscular Hemoglobin 32.5 pg (27.0-31.0); Mean Corpuscular Volume 98.1 fL (78.0-98.0); Platelet Count 367 thou/uL (130-400); RBC Distribution Width 12.9 % (11.5-14.5); Red Blood Cell (RBC) Count 2.97 mill/uL (4.70-6.10); White Blood Cell (WBC) Count 12.7 thou/uL (4.8-10.8)
[2021-03-12 11:04] LABS: Anion Gap 19 mmol/L (10-20); BUN (Urea Nitrogen) 40 mg/dL (8.4-25.7); Calc. Creatinine Clearance 18 mL/min (70-130); Calcium 7.5 mg/dL (7.8-10.44); Carbon Dioxide 19 mmol/L (23-31); Chloride 102 mmol/L (98-107); Glucose 346 mg/dL (83-110); Potassium 3.6 mmol/L (3.5-5.1); Sodium 136 mmol/L (136-145)
[2021-03-12] MEDS: HumaLOG 300 UNITS/3 ML VIAL SC PRN ×3 (13:04→20:28)
[2021-03-12] MEDS: Acetaminophen 325 MG TAB PO PRN (20:24)
[2021-03-12] MEDS: Tamsulosin HCl 0.4 MG CAP PO SCH (20:26)
[2021-03-12] MEDS: HumaLOG 300 UNITS/3 ML VIAL SC SCH (20:27)
[2021-03-13] MEDS: Piperacillin/Tazobactam 4.5 GM in Sodium Chloride 0.9% 100 ML IVPB SCH (01:19)
[2021-03-13] MEDS: Ondansetron ODT 4 MG TAB PO PRN (01:20)
[2021-03-13] MEDS ORDERED: Lantus 1000 UNITS/10 ML VIAL SC SCH (09:00)
[2021-03-13] MEDS: Dronedarone HCl 400 MG TAB PO SCH (09:41)
[2021-03-13] MEDS: Aspirin 81 mg Enteric Coated Tablet PO SCH (09:43)
[2021-03-13] MEDS: Pancrelipase DR 12,000 1 CAP PO SCH ×2 (09:43→13:06)
[2021-03-13] MEDS: Calcium Carbonate 500 MG TAB PO SCH (09:44)
[2021-03-13] MEDS: Finasteride 5 MG TAB PO SCH (09:45)
[2021-03-13] MEDS: Levothyroxine 150 MCG TAB PO SCH (09:45)
[2021-03-13] MEDS: hydrALAZINE 25 MG TAB PO SCH (09:46)
[2021-03-13] MEDS: NIFEdipine XL 60 MG TAB PO SCH (09:47)
[2021-03-13] MEDS: Polyethylene Glycol 3350 17 GM Packet PO SCH (09:48)
[2021-03-13] MEDS: Saccharomyces boulardii 250 MG CAP PO SCH (09:48)
[2021-03-13 10:32] LABS: #Basophils 0.1 thou/uL (0.0-0.2); #Eosinphils 0.4 thou/uL (0.0-0.7); #Lymphocytes 1.2 thou/uL (1.20-3.40); #Monocytes 0.8 thou/uL (0.11-0.59); #Neutrophils 8.8 thou/uL (1.40-6.50); %Basophils 0.6 % (0.0-1.0); %Eosinophils 3.5 % (0.0-10.0); %Lymphocytes 10.3 % (21.0-51.0); %Monocytes 7.4 % (0.0-10.0); %Neutrophils 78.2 % (42.0-75.0); Mean Corpuscular HGB CONC 33.4 g/dL (32.0-36.0); Mean Corpuscular Hemoglobin 32.9 pg (27.0-31.0); Mean Corpuscular Volume 98.3 fL (78.0-98.0); Mean Platelet Volume 7.7 fL (7.4-10.4); Platelet Count 347 thou/uL (130-400); RBC Distribution Width 12.7 % (11.5-14.5); Red Blood Cell (RBC) Count 2.73 mill/uL (4.70-6.10); White Blood Cell (WBC) Count 11.3 thou/uL (4.8-10.8)
[2021-03-13 10:56] LABS: Vancomycin, Random 25.6 ug/mL (See Comment)
[2021-03-13] MEDS: HumaLOG 300 UNITS/3 ML VIAL SC PRN (13:06)
[2021-03-13 15:25] VITALS: BP 132/57; TEMP 98.1
== END 2021-03-13 15:15 | disposition home or self-care (01) | DRG 871 ==
LOC: ERS 19:55 → T4-B 23:52
PROVIDERS: ADMIT Student in an Organized Health Care Education/Training Program; ATTEND Internal Medicine
PROC: 3E1M39Z Irrigation of Peritoneal Cavity using Dialysate, Percutaneous Approach (ICD-10-PCS; principal; 2021-03-10)
DX: A41.9 Sepsis, unspecified organism (principal); N18.6 End stage renal disease; E87.1 Hypo-osmolality and hyponatremia; N39.0 Urinary tract infection, site not specified; C25.9 Malignant neoplasm of pancreas, unspecified; I12.0 Hypertensive chronic kidney disease with stage 5 chronic kidney disease or end stage renal disease; E11.22 Type 2 diabetes mellitus with diabetic chronic kidney disease; E11.649 Type 2 diabetes mellitus with hypoglycemia without coma; M21.372 Foot drop, left foot; I25.10 Atherosclerotic heart disease of native coronary artery without angina pectoris; M21.371 Foot drop, right foot; E03.9 Hypothyroidism, unspecified; R19.7 Diarrhea, unspecified; E78.5 Hyperlipidemia, unspecified; I48.0 Paroxysmal atrial fibrillation; N40.0 Benign prostatic hyperplasia without lower urinary tract symptoms; D63.1 Anemia in chronic kidney disease; Z20.822 Contact with and (suspected) exposure to COVID-19; Z99.2 Dependence on renal dialysis; Z79.82 Long term (current) use of aspirin; Z79.4 Long term (current) use of insulin; Z95.1 Presence of aortocoronary bypass graft; Z90.89 Acquired absence of other organs; Z79.01 Long term (current) use of anticoagulants; Z95.3 Presence of xenogenic heart valve
CPT/HCPCS: 36415; 36416; 71045; 71260; 74177; 80048; 80053; 80202; 81003; 81015; 82274; 83605; 83630; 83690; 85025; 85060; 86850; 86900; 86901; 87040; 87045; 87046; 87070; 87086; 87205; 87324; 87427; 87449; 87635; 89051; 90945; 93306; 96365; 96367; G0257; J0692; J1815; J2543; J3370; J3490; Q0162; Q5105; Q9967; U0003; U0005

== ENCOUNTER 2021-03-24 09:39 | Day surgery (SDC) | payer MEDICARE, BC ==
[2021-03-23 11:39] VITALS: BMI 23.6
[2021-03-24] MEDS ORDERED: Ketorolac Tromethamine 30 MG/ML VIAL ONE (09:54)
[2021-03-24] MEDS ORDERED: Acetaminophen 500 MG TAB ONE (09:55)
[2021-03-24] MEDS ORDERED: Dextrose 50% Abboject 50 ML SYRINGE ONE (10:40)
[2021-03-24] MEDS ORDERED: Lidocaine 1% w/Epinephrine 1:100K 20 ML VIAL ONE (12:24)
[2021-03-24] MEDS ORDERED: Bupivacaine PF 0.5% 30 ML VIAL ONE (12:24)
[2021-03-24] MEDS ORDERED: Fentanyl 100 MCG/2 ML VIAL ONE (12:42)
== END 2021-03-24 15:02 | disposition home or self-care (01) ==
LOC: SDC 09:39
PROVIDERS: ATTEND Specialist
PROC: 0JH60WZ Insertion of Totally Implantable Vascular Access Device into Chest Subcutaneous Tissue and Fascia, Open Approach (ICD-10-PCS; principal; 2021-03-24)
PROC: 02HV33Z Insertion of Infusion Device into Superior Vena Cava, Percutaneous Approach (ICD-10-PCS; 2021-03-24)
DX: C25.9 Malignant neoplasm of pancreas, unspecified (principal); I12.0 Hypertensive chronic kidney disease with stage 5 chronic kidney disease or end stage renal disease; E10.22 Type 1 diabetes mellitus with diabetic chronic kidney disease; N18.6 End stage renal disease; E89.0 Postprocedural hypothyroidism; I25.2 Old myocardial infarction; I25.10 Atherosclerotic heart disease of native coronary artery without angina pectoris; N40.0 Benign prostatic hyperplasia without lower urinary tract symptoms; G47.33 Obstructive sleep apnea (adult) (pediatric); Z79.82 Long term (current) use of aspirin; Z79.899 Other long term (current) drug therapy; Z95.1 Presence of aortocoronary bypass graft; Z99.2 Dependence on renal dialysis
CPT/HCPCS: 36416; 71045; C1788; J0690; J1642; J1885; J3010; S0020

== ENCOUNTER 2021-04-08 21:14 | Inpatient (IN) | payer MEDICARE, BC ==
[2021-04-08] MEDS ORDERED: Ondansetron PF 4 MG/2 ML Vial ONE ×2 (22:24→23:47)
[2021-04-08] MEDS ORDERED: Morphine 4 MG/ML VIAL ONE ×2 (22:24→23:44)
[2021-04-08 22:30] LABS: Hemoglobin 9.2 g/dL (14.0-18.0); Mean Corpuscular HGB CONC 33.3 g/dL (32.0-36.0); Mean Corpuscular Hemoglobin 32.8 pg (27.0-31.0); Mean Corpuscular Volume 98.7 fL (78.0-98.0); Mean Platelet Volume 8.4 fL (7.4-10.4); Platelet Count 280 thou/uL (130-400); RBC Distribution Width 12.5 % (11.5-14.5); White Blood Cell (WBC) Count 22.5 thou/uL (4.8-10.8)
[2021-04-08 22:47] LABS: Band 12 % (5-11); Hypochromia SLIGHT = 6-15 cells (100X) (0-5/hpf); Lymphocytes 5 % (21-51); MDiff Complete? YES; Monocytes 2 % (0-10); Neutrophil 81 % (42-75); Platelet Morphology Comment Appears Adequate
[2021-04-08 22:49] LABS: ALT (SGPT) 20 U/L (8-55); AST (SGOT) 24 U/L (5-34); Albumin 3.2 g/dL (3.4-4.8); Alkaline Phosphatase 63 U/L (40-110); Anion Gap 26 mmol/L (10-20); BUN (Urea Nitrogen) 90 mg/dL (8.4-25.7); Bilirubin, Total 0.6 mg/dL (0.2-1.2); Calc. Creatinine Clearance 0 mL/min (70-130); Calcium 7.1 mg/dL (7.8-10.44); Carbon Dioxide 16 mmol/L (23-31); Chloride 93 mmol/L (98-107); Globulin 3.7 g/dL (2.4-3.5); Glucose 70 mg/dL (83-110); Lipase 8 U/L (8-78); Potassium 5.2 mmol/L (3.5-5.1); Protein, Total 6.9 g/dL (5.8-8.1); Sodium 130 mmol/L (136-145)
[2021-04-08] MEDS ORDERED: Vancomycin 1.5 GRAM/300 ML BAG 1.5 GM in Premix Bag 1 BAG IVPB SCH (23:15)
[2021-04-08] MEDS ORDERED: Cefepime 2 GM VIAL ONE (23:23)
[2021-04-09] MEDS ORDERED: Morphine 4 MG/ML VIAL ONE (01:34)
[2021-04-09] MEDS ORDERED: Morphine 4 MG/ML VIAL SLOW IVP PRN (02:04)
[2021-04-09] MEDS ORDERED: Ondansetron ODT 4 MG TAB SL PRN (02:15)
[2021-04-09] MEDS ORDERED: Ondansetron PF 4 MG/2 ML Vial IVP PRN (02:15)
[2021-04-09] MEDS ORDERED: Acetaminophen 325 MG TAB PO PRN ×2 (02:15→05:52)
[2021-04-09] MEDS ORDERED: Metoprolol Tartrate 25 MG TAB PO SCH (04:00)
[2021-04-09 05:20] LABS: SARS-CoV-2 NAA Rapid Test Not Detected (NotDetected)
[2021-04-09] MEDS ORDERED: Dextrose 50% Abboject 50 ML SYRINGE SLOW IVP PRN (05:56)
[2021-04-09] MEDS ORDERED: Dextrose 5% in Water 1,000 ML IV PRN (05:56)
[2021-04-09] MEDS ORDERED: HumaLOG 300 UNITS/3 ML VIAL SC PRN (05:56)
[2021-04-09 06:27] LABS: #Eosinphils 0.1 thou/uL (0.0-0.7); #Lymphocytes 0.7 thou/uL (1.20-3.40); #Monocytes 0.1 thou/uL (0.11-0.59); #Neutrophils 16.7 thou/uL (1.40-6.50); %Basophils 0.1 % (0.0-1.0); %Eosinophils 0.5 % (0.0-10.0); %Lymphocytes 3.7 % (21.0-51.0); %Monocytes 0.7 % (0.0-10.0); Hemoglobin 7.7 g/dL (14.0-18.0); Mean Corpuscular Hemoglobin 31.6 pg (27.0-31.0); Mean Platelet Volume 8.1 fL (7.4-10.4); Platelet Count 207 thou/uL (130-400); RBC Distribution Width 12.4 % (11.5-14.5); Red Blood Cell (RBC) Count 2.45 mill/uL (4.70-6.10); White Blood Cell (WBC) Count 17.6 thou/uL (4.8-10.8)
[2021-04-09 06:45] LABS: Anion Gap 24 mmol/L (10-20); BUN (Urea Nitrogen) 93 mg/dL (8.4-25.7); Calc. Creatinine Clearance 8 mL/min (70-130); Calcium 6.6 mg/dL (7.8-10.44); Carbon Dioxide 16 mmol/L (23-31); Chloride 96 mmol/L (98-107); Potassium 5.6 mmol/L (3.5-5.1); Sodium 130 mmol/L (136-145)
[2021-04-09] MEDS ORDERED: Vancomycin HCl 750 MG in Sodium Chloride 0.9% 250 ML 250 ML IVPB SCH (06:45)
[2021-04-09] MEDS ORDERED: VANCOMYCIN 1.25 GM/250 ML BAG 1.25 GM in Premix Bag 1 BAG IVPB SCH (06:45)
[2021-04-09] MEDS ORDERED: Vancomycin 1 GM in Premix Bag 1 BAG IVPB SCH (06:45)
[2021-04-09] MEDS ORDERED: Vancomycin HCl 500 MG in Sodium Chloride 0.9% 100 ML IVPB SCH (06:45)
[2021-04-09 06:49] LABS: Glucose 51 mg/dL (83-110)
[2021-04-09] MEDS: Apixaban 2.5 MG TAB PO SCH ×2 (08:12→20:28)
[2021-04-09] MEDS: Dronedarone HCl 400 MG TAB PO SCH ×2 (08:12→17:25)
[2021-04-09] MEDS ORDERED: Calcium Gluconate 9.2 MEQ in Sodium Chloride 0.9% 100 ML IVPB SCH (10:00)
[2021-04-09] MEDS ORDERED: Sodium Bicarbonate 150 MEQ in Dextrose 5% in Water 1,000 ML IV SCH (10:00)
[2021-04-09 11:02] LABS: CK (CPK) 34 U/L (30-200); Uric Acid 9.1 mg/dL (3.5-7.2)
[2021-04-09 11:09] LABS: Phosphorus 10.2 mg/dL (2.3-4.7)
[2021-04-09] MEDS: Sevelamer Carbonate 800 MG TAB PO SCH (17:25)
[2021-04-09] MEDS ORDERED: Melatonin 3 MG TAB PO PRN (23:25)
[2021-04-10] MEDS: Ondansetron PF 4 MG/2 ML Vial IVP PRN ×2 (03:17→14:12)
[2021-04-10 06:06] LABS: Phosphorus 9.1 mg/dL (2.3-4.7)
[2021-04-10 06:08] LABS: Anion Gap 22 mmol/L (10-20); BUN (Urea Nitrogen) 84 mg/dL (8.4-25.7); Calc. Creatinine Clearance 8 mL/min (70-130); Calcium 6.8 mg/dL (7.8-10.44); Carbon Dioxide 21 mmol/L (23-31); Chloride 91 mmol/L (98-107); Glucose 315 mg/dL (83-110); Magnesium 2.1 mg/dL (1.6-2.6); Potassium 4.9 mmol/L (3.5-5.1); Sodium 129 mmol/L (136-145)
[2021-04-10] MEDS: HumaLOG 300 UNITS/3 ML VIAL SC PRN ×2 (06:30→12:58)
[2021-04-10 07:03] LABS: Hemoglobin 7.1 g/dL (14.0-18.0); Mean Corpuscular Hemoglobin 33.2 pg (27.0-31.0); Mean Corpuscular Volume 97.6 fL (78.0-98.0); Mean Platelet Volume 8.7 fL (7.4-10.4); Platelet Count 175 thou/uL (130-400); RBC Distribution Width 12.3 % (11.5-14.5); Red Blood Cell (RBC) Count 2.12 mill/uL (4.70-6.10); White Blood Cell (WBC) Count 7.4 thou/uL (4.8-10.8)
[2021-04-10 07:44] LABS: Band 3 % (5-11); Lymphocytes 4 % (21-51); MDiff Complete? YES; Monocytes 1 % (0-10); Neutrophil 92 % (42-75); Polychromasia SLIGHT = 2-3 cells (100X) (0-2/hpf)
[2021-04-10 08:36] LABS: Vancomycin, Random 25.4 ug/mL (See Comment)
[2021-04-10] MEDS: Sevelamer Carbonate 800 MG TAB PO SCH ×3 (08:39→17:38)
[2021-04-10] MEDS: Dronedarone HCl 400 MG TAB PO SCH ×2 (08:39→17:38)
[2021-04-10] MEDS: Senokot S 8.6-50 MG TAB PO SCH ×2 (12:58→21:19)
[2021-04-10] MEDS: Apixaban 2.5 MG TAB PO SCH ×2 (16:19→21:19)
[2021-04-10] MEDS ORDERED: Cefepime 2 GM in Sodium Chloride 0.9% 100 ML IVPB SCH (23:59)
[2021-04-11] MEDS ORDERED: Morphine 4 MG/ML VIAL SLOW IVP SCH (00:45)
[2021-04-11 05:54] LABS: Hemoglobin 7.6 g/dL (14.0-18.0); Mean Corpuscular Hemoglobin 31.4 pg (27.0-31.0); Mean Corpuscular Volume 95.3 fL (78.0-98.0); Mean Platelet Volume 8.5 fL (7.4-10.4); Platelet Count 120 thou/uL (130-400); RBC Distribution Width 13.5 % (11.5-14.5); Red Blood Cell (RBC) Count 2.42 mill/uL (4.70-6.10)
[2021-04-11 06:01] LABS: Anion Gap 21 mmol/L (10-20); BUN (Urea Nitrogen) 75 mg/dL (8.4-25.7); Calc. Creatinine Clearance 9 mL/min (70-130); Calcium 6.5 mg/dL (7.8-10.44); Carbon Dioxide 22 mmol/L (23-31); Chloride 92 mmol/L (98-107); Glucose 267 mg/dL (83-110); Potassium 4.5 mmol/L (3.5-5.1); Sodium 130 mmol/L (136-145)
[2021-04-11] MEDS: HumaLOG 300 UNITS/3 ML VIAL SC PRN ×2 (06:09→11:57)
[2021-04-11 06:15] LABS: Band 5 % (5-11); Lymphocytes 3 % (21-51); MDiff Complete? YES; Neutrophil 92 % (42-75)
[2021-04-11] MEDS: Senokot S 8.6-50 MG TAB PO SCH ×2 (08:10→20:45)
[2021-04-11] MEDS: Sevelamer Carbonate 800 MG TAB PO SCH ×3 (08:10→18:35)
[2021-04-11] MEDS: Dronedarone HCl 400 MG TAB PO SCH ×2 (08:10→18:35)
[2021-04-11] MEDS: Morphine 4 MG/ML VIAL SLOW IVP PRN ×3 (08:11→22:46)
[2021-04-11] MEDS: Apixaban 2.5 MG TAB PO SCH ×2 (08:11→20:45)
[2021-04-11 08:42] LABS: Vancomycin, Random 21.8 ug/mL (See Comment)
[2021-04-11] MEDS: Calcium Carbonate 500 MG ChewTAB PO SCH ×2 (11:58→18:35)
[2021-04-11] MEDS ORDERED: Fleet Enema 133 ML BOT PR SCH (21:00)
[2021-04-11] MEDS: Ondansetron PF 4 MG/2 ML Vial IVP PRN (23:20)
[2021-04-12] MEDS: Morphine 4 MG/ML VIAL SLOW IVP PRN ×4 (02:22→14:41)
[2021-04-12 06:01] LABS: #Eosinphils 0.1 thou/uL (0.0-0.7); #Lymphocytes 0.4 thou/uL (1.20-3.40); #Neutrophils 4.7 thou/uL (1.40-6.50); %Eosinophils 1.2 % (0.0-10.0); %Lymphocytes 7.9 % (21.0-51.0); %Monocytes 0.5 % (0.0-10.0); %Neutrophils 90.3 % (42.0-75.0); Mean Corpuscular HGB CONC 31.9 g/dL (32.0-36.0); Mean Corpuscular Hemoglobin 30.5 pg (27.0-31.0); Mean Corpuscular Volume 95.8 fL (78.0-98.0); Mean Platelet Volume 8.4 fL (7.4-10.4); Platelet Count 95 thou/uL (130-400); RBC Distribution Width 13.3 % (11.5-14.5); White Blood Cell (WBC) Count 5.2 thou/uL (4.8-10.8)
[2021-04-12 06:45] LABS: Anion Gap 24 mmol/L (10-20); Calc. Creatinine Clearance 8 mL/min (70-130); Calcium 6.7 mg/dL (7.8-10.44); Carbon Dioxide 20 mmol/L (23-31); Chloride 93 mmol/L (98-107); Glucose 210 mg/dL (83-110); Potassium 4.8 mmol/L (3.5-5.1); Sodium 132 mmol/L (136-145)
[2021-04-12 06:53] LABS: BUN (Urea Nitrogen) 83 mg/dL (8.4-25.7)
[2021-04-12] MEDS: Senokot S 8.6-50 MG TAB PO SCH (09:18)
[2021-04-12] MEDS: Calcium Carbonate 500 MG ChewTAB PO SCH ×3 (09:18→16:44)
[2021-04-12] MEDS: Dronedarone HCl 400 MG TAB PO SCH ×2 (09:19→16:44)
[2021-04-12] MEDS: Apixaban 2.5 MG TAB PO SCH (09:19)
[2021-04-12] MEDS: Sevelamer Carbonate 800 MG TAB PO SCH ×3 (09:19→16:44)
[2021-04-12 09:42] VITALS: BP 137/60; TEMP 98.9
[2021-04-12] MEDS: Ondansetron PF 4 MG/2 ML Vial IVP PRN (09:58)
== END 2021-04-12 18:40 | disposition hospice, inpatient (51) | DRG 435 ==
LOC: ERS 21:14 → 2SW 23:48 → OBSVTOIN 04-09 14:54 → ONC 04-11 16:31
PROVIDERS: ADMIT Internal Medicine; ATTEND Family Medicine
PROC: 5A1D70Z Performance of Urinary Filtration, Intermittent, Less than 6 Hours Per Day (ICD-10-PCS; principal; 2021-04-09)
PROC: 30233N1 Transfusion of Nonautologous Red Blood Cells into Peripheral Vein, Percutaneous Approach (ICD-10-PCS; 2021-04-10)
DX: C25.9 Malignant neoplasm of pancreas, unspecified (principal); N18.6 End stage renal disease; E87.1 Hypo-osmolality and hyponatremia; I12.0 Hypertensive chronic kidney disease with stage 5 chronic kidney disease or end stage renal disease; E87.2 Acidosis; Z66 Do not resuscitate; Z51.5 Encounter for palliative care; Z20.822 Contact with and (suspected) exposure to COVID-19; E87.5 Hyperkalemia; I48.0 Paroxysmal atrial fibrillation; I25.10 Atherosclerotic heart disease of native coronary artery without angina pectoris; E11.22 Type 2 diabetes mellitus with diabetic chronic kidney disease; E03.9 Hypothyroidism, unspecified; M21.372 Foot drop, left foot; M21.371 Foot drop, right foot; F98.5 Adult onset fluency disorder; D72.829 Elevated white blood cell count, unspecified; E83.51 Hypocalcemia; E83.39 Other disorders of phosphorus metabolism; D63.0 Anemia in neoplastic disease; D63.1 Anemia in chronic kidney disease; Z99.2 Dependence on renal dialysis; Z79.4 Long term (current) use of insulin; Z79.899 Other long term (current) drug therapy; Z95.2 Presence of prosthetic heart valve; Z95.0 Presence of cardiac pacemaker; Z95.1 Presence of aortocoronary bypass graft; Z98.890 Other specified postprocedural states; Z79.890 Hormone replacement therapy
CPT/HCPCS: 36415; 36416; 36430; 71045; 80048; 80053; 80202; 82040; 82306; 82550; 83605; 83690; 83735; 83930; 83935; 84100; 84300; 84484; 84550; 85025; 86850; 86900; 86901; 87040; 90945; 93005; 96361; 96365; 96366; 96367; 96368; 96375; 96376; G0257; G0378; J0692; J1815; J2001; J2270; J2405; J3370; J3490; J7070; P9016; U0002